=== PATIENT | female | born 1965 | race Caucasian/White ===

== ENCOUNTER 2016-12-23 14:18 | Emergency (ER) | payer OTHER ==
[~2016-12-23] VITALS: Ht 162.6 cm; Wt 90.5 kg
[~2016-12-23 14:18] MED LIST: ERGO500037 PO; GLC/500 PO; LEVO50TA6 PO; SULF800T23 PO
[2016-12-23 14:20] VITALS: TEMP 36.6; Ht 162.6 cm; Wt 90.5 kg
[2016-12-23] MEDS ORDERED: FURO-85 PO (15:02)
[2016-12-23 15:13] VITALS: BP 148/91; PULSE 84; O2SAT 96
[2016-12-23] MEDS ORDERED: OXYC1TAB3 PO (15:22)
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
--- NOTE | 2016-12-23 17:40 | Pharmacy Progress Note ---
ED Pharmacist Progress Note Date of Service: Dec 23, 2016. Pharmacist from [facility] called today stating she did not feel comfortable filling the Rx for oxy IR as she felt the patient exhibited drug-seeking behavior. I forwarded this phone call to Patty ARMANDO to discuss the appropriate course of action.
[2017-04-28] MEDS ORDERED: CEPH500C2 PO (13:45)
[2017-04-28] MEDS ORDERED: CHOL20007 PO (13:45)
[2017-04-28] MEDS ORDERED: NYST80OI TOP (13:45)
[2017-04-28] MEDS ORDERED: FRS/40 PO (13:45)
[2017-05-10] MEDS ORDERED: DIPH1TAB (08:22)
[2017-05-10] MEDS ORDERED: ACET-1256 PO (08:23)
[2017-08-05] MEDS ORDERED: ARIP1INJ IM (06:18)
[2017-08-05] MEDS ORDERED: CLON1TAB3 PO (10:47)
[2017-08-05] MEDS ORDERED: METF-382 PO (15:02)
== END 2016-12-23 15:44 | disposition home or self-care (01) ==
LOC: C.EDB 14:20 → C.EDD 15:44
DX: M79.672 Pain in left foot (principal); E11.9 Type 2 diabetes mellitus without complications; E03.9 Hypothyroidism, unspecified; F41.9 Anxiety disorder, unspecified; F31.9 Bipolar disorder, unspecified; K58.9 Irritable bowel syndrome, unspecified; Z90.49 Acquired absence of other specified parts of digestive tract; Z79.899 Other long term (current) drug therapy

== ENCOUNTER → 2016-12-30 | Outpatient (CLI) | payer OTHER ==
[~2016-12-30] MED LIST changes: +ACET-1256 PO; +ARIP1INJ IM; +CEPH500C PO; +CEPH500C2 PO; +CHOL20007 PO; +CHOLCAP5 PO; +CLON1TAB3 PO; +DIPH1TAB; +FRS/40 PO; +FURO-85 PO; -GLC/500 PO; +LEVO75TA5 PO; +METF-382 PO; +NYST80OI TOP; +OXYC1TAB3 PO; -SULF800T23 PO
[2016-12-30 14:09] LABS: ESTIMATED AVERAGE GLUCOSE 131 mg/dl; HA1C FLAG Normal (Normal)
[2016-12-30 14:14] LABS: BLOOD UREA NITROGEN 14 mg/dl (7-18); BUN/CREATININE RATIO 17.3 (10-20); CALCIUM 8.8 mg/dl (8.5-10.1); CARBON DIOXIDE 25 mmol/L (21-32); CHLORIDE 106 mmol/L (98-107); CREATININE 0.79 mg/dl (0.60-1.20); GLUCOSE 149 mg/dl (70-99); POTASSIUM 3.9 mmol/L (3.5-5.1); SODIUM 139 mmol/L (136-145)
== END | disposition home or self-care (01) ==
LOC: C.LAB1850 12:41
PROVIDERS: ATTEND Internal Medicine
DX: E11.9 Type 2 diabetes mellitus without complications (principal); E55.9 Vitamin D deficiency, unspecified

== ENCOUNTER → 2017-01-02 | Outpatient (CLI) | payer OTHER ==
--- NOTE | 2017-01-02 16:16 | DIAGNOSTIC IMAGING REPORT ---
LEFT FOOT MIN 3 VIEWS ROUTINE CLINICAL HISTORY: Metatarsal fracture COMPARISON: 11/07/2016 DISCUSSION: The bones are mildly osteopenic. There are osteoarthritic changes present the level the first metatarsal phalangeal joint. There are postsurgical changes within the distal tibia. No acute or healing fractures are visualized. IMPRESSION: No acute or healing fractures are visualized. Electronically signed by: Mynor Langford M.D. 01/02/2017 4:15 PM Dictated Date/Time: 01/02/2017 4:13 PM
== END | disposition home or self-care (01) ==
LOC: C.LAB 15:47
PROVIDERS: ATTEND Internal Medicine
DX: S92.302A Fracture of unspecified metatarsal bone(s), left foot, initial encounter for closed fracture (principal); X58.XXXA Exposure to other specified factors, initial encounter

== ENCOUNTER → 2017-02-14 | Outpatient (CLI) | payer OTHER ==
--- NOTE | 2017-02-14 11:14 | DIAGNOSTIC IMAGING REPORT ---
SINGLE VIEW PELVIS; 2 VIEWS RIGHT HIP; 2 VIEWS LEFT HIP CLINICAL HISTORY: Bilateral hip pain. FINDINGS: An AP view of the pelvis with AP and frog-leg views of the right hip as well as AP and frog-leg views of the left hip are compared to study dated 01/24/2016. The skeletal structures are osteopenic. No fracture is seen. There is unchanged appearance approximate 4 cm osteochondroma arising from the left ilium. There is only minimal degenerative change seen in the hip joints. Sclerotic change is noted in the sacroiliac joints and pubic symphysis. Enthesophytes arise from the anterior superior iliac spine bilaterally and the greater trochanters of the proximal femora. The overlying soft tissues are within normal limits. Surgical clips are noted in the pelvis. There is a nonobstructed abdominal bowel gas pattern. IMPRESSION: 1. No acute bony abnormality is seen in the hips or pelvis. 2. Minimal degenerative change as above. 3. Unchanged appearance of an osteochondroma arising from the left iliac bone as compared to previous. Electronically signed by: Joseph Thomas M.D. 02/14/2017 11:13 AM Dictated Date/Time: 02/14/2017 11:11 AM
== END | disposition home or self-care (01) ==
LOC: C.RDSM 11:01
PROVIDERS: ATTEND Family Medicine
DX: M25.551 Pain in right hip (principal); M25.552 Pain in left hip; D16.8 Benign neoplasm of pelvic bones, sacrum and coccyx

== ENCOUNTER → 2017-03-08 | Outpatient (CLI) | payer OTHER ==
[~2017-03-08] MED LIST changes: -DIPH1TAB; +DIPH1TAB87; +HALDOL PO
== END | disposition home or self-care (01) ==
LOC: C.LAB1850 14:52
PROVIDERS: ATTEND Internal Medicine
DX: Z11.59 Encounter for screening for other viral diseases (principal)

== ENCOUNTER → 2017-03-28 | Outpatient (CLI) | payer OTHER ==
--- NOTE | 2017-03-28 13:48 | DIAGNOSTIC IMAGING REPORT ---
LEFT ANKLE 3 VIEWS CLINICAL HISTORY: Left ankle pain. FINDINGS: 3 views of the left ankle are compared to study dated 11/10/2015. The skeletal structures are osteopenic. There is chronic posttraumatic deformity with partial bony fusion of the distal tibia and fibula. A buttress plate is present along the medial aspect of the distal tibia. Numerous cortical lag screws transfix the plate. The orthopedic hardware appears intact. Additional cortical screws are present within the distal tibia. Screw tracts are present more proximally within the mid tibial shaft. No acute fracture is seen. The ankle mortise appears intact. Mild soft tissue swelling is present around ankle. No joint effusion is seen. IMPRESSION: Osteopenia with chronic posttraumatic and postoperative findings as above. No acute bony abnormality is seen in the left ankle. Electronically signed by: Joseph Thomas M.D. 03/28/2017 1:46 PM Dictated Date/Time: 03/28/2017 1:44 PM
== END | disposition home or self-care (01) ==
LOC: C.RDSM 13:35
PROVIDERS: ATTEND Family Medicine
DX: M79.672 Pain in left foot (principal); M25.572 Pain in left ankle and joints of left foot; M85.872 Other specified disorders of bone density and structure, left ankle and foot

== ENCOUNTER → 2017-05-10 | Day surgery (SDC) | payer OTHER ==
[2017-04-28 13:46] VITALS: BMI 34.0
[~2017-05-10] VITALS: Ht 162.6 cm; Wt 90.9 kg
[~2017-05-10] MED LIST changes: -ERGO500037 PO; +HALO5TAB PO; +LIDOCAINE HCL 2% 2 ML VIAL (20MG/ML) ONE; -OXYC1TAB3 PO; +PROPOFOL IV EMULSION 10 MG/ML 20 ML VIAL IV ONE; +SODIUM CHLORIDE 0.9% 500ML 500 ML IV ONE
[2017-05-10 08:12] VITALS: Ht 162.6 cm; Wt 90.9 kg
--- NOTE | 2017-05-10 08:50 | Endo History and Physical ---
History & Physical Date of Service: May 10, 2017. Chief Complaint: SCREENING FAMILY HX COLON Referring Physician: DR. CARLTON History of Present Illness 52 yo CF who presents for colonoscopy secondary to family history of colon cancer. Past Medical History Diabetes, Arthritis, Fractures, Anxiety, Thyroid Disease Past Surgical History Hx Cardiac Surgery: No Hx Internal Defibrillator: No Hx Pacemaker: No Hx Abdominal Surgery: Yes (REYES, MINDY BSO, APPY) Hx of Implantable Prosthesis: No Hx Post-Op Nausea and Vomiting: No Hx Cancer Surgery: No Hx Thoracic Surgery: No Hx Orthopedic: Yes (LEFT ANKLE RECONSTRUCTION-LEFT HIP GRAFTING) Hx Urinary Tract Surgery: No Family History Colon CA Social History Smoking Status: Current Every Day Smoker Hx Substance Use: No Hx Alcohol Use: Yes (VERY RARELY) Allergies Coded Allergies: Acetaminophen (Unverified Allergy, Severe, nausea and hives, 05/10/17) NSAIDs (Unverified Allergy, Severe, vomiting, 05/10/17) Propoxyphene (Unverified Allergy, Severe, nausea and hives, 05/10/17) Amoxicillin (Verified Allergy, Unknown, vomiting, 05/10/17) Clavulanic Acid (Verified Allergy, Unknown, vomiting, 05/10/17) Erythromycin (Verified Allergy, Unknown, vomiting, 05/10/17) Ibuprofen (Verified Allergy, Unknown, tears my intestines up, 05/10/17) Nalbuphine (Verified Allergy, Unknown, violent vomiting, 05/10/17) Tramadol (Verified Allergy, Unknown, intestines turn inside out, 05/10/17) Corticosteroids (Verified Adverse Reaction, Mild, "INTESTINES TURN INSIDE OUT", 05/10/17) Codeine (Verified Adverse Reaction, Unknown, nausea, 05/10/17) Uncoded Allergies: LYSOL CLEANEER (Allergy, Intermediate, HIVES BREAKS OUT, 05/10/17) Current Medications Reported Home Medications Medications Dose Route/Sig Max Daily Dose Days Date Category Tylenol (Acetaminophen) 500 Mg Tab 2 Tab PO Q6 PRN 2 05/10/17 Reported Benadryl Allergy (Diphenhydramine Hcl) 25 Mg Tab PRN 05/10/17 Reported Vitamin D3 (Cholecalciferol) 2,000 Unit Tab 3 Tab PO QAM 90 04/28/17 Reported Nystatin (Nystatin (Topical)) 100,000 Unit/Gm Oin 1 Appln TOP TID 5 04/28/17 Reported Lasix (Furosemide) 40 Mg Tab 40 Mg PO DAILY PRN 04/28/17 Reported Keflex (Cephalexin Monohydrate) 500 Mg Cap 500 Mg PO QID 04/28/17 Reported Glucophage Ext Rel (Metformin HCl) 500 Mg Tab 500 Mg PO HS 12/23/16 Reported Klonopin (Clonazepam) 1 Mg Tab 1 Mg PO TID 03/14/16 Reported Abilify Maintena (Aripiprazole) 400 Mg Inj 1 Dose IM MONTHLY 01/29/16 Reported Levothyroxine Sodium 50 Mcg Tab 50 Mcg PO QAM 11/21/15 Reported Vital Signs Weight (Kilograms): 90.91 Height (Feet): 5 Height (Inches): 4 Date Time Temp Pulse Resp B/P (MAP) Pulse Ox O2 Delivery O2 Flow Rate FiO2 05/10/17 08:26 36.1 79 20 122/76 (91) 96 Room Air Physical Exam General Appearance: WD/WN, no apparent distress Respiratory/Chest: Auscultation: breath sounds normal Cardiovascular: Heart Auscultation: RRR Abdomen: Bowel Sounds: normal Inspection & Palpation: soft, non-distended, no tenderness, guarding & rebound Assessment and Plan Assessment: 52 yo CF who presents for colonoscopy secondary to family history of colon cancer. Plan: Proceed with colonoscopy.
--- NOTE | 2017-05-10 09:04 | Discharge Instructions ---
Endoscopy Patient Instructions Date / Procedure(s) Performed May 10, 2017. Colonoscopy Allergy Information Coded Allergies: Acetaminophen (Unverified Allergy, Severe, nausea and hives, 05/10/17) NSAIDs (Unverified Allergy, Severe, vomiting, 05/10/17) Propoxyphene (Unverified Allergy, Severe, nausea and hives, 05/10/17) Amoxicillin (Verified Allergy, Unknown, vomiting, 05/10/17) Clavulanic Acid (Verified Allergy, Unknown, vomiting, 05/10/17) Erythromycin (Verified Allergy, Unknown, vomiting, 05/10/17) Ibuprofen (Verified Allergy, Unknown, tears my intestines up, 05/10/17) Nalbuphine (Verified Allergy, Unknown, violent vomiting, 05/10/17) Tramadol (Verified Allergy, Unknown, intestines turn inside out, 05/10/17) Corticosteroids (Verified Adverse Reaction, Mild, "INTESTINES TURN INSIDE OUT", 05/10/17) Codeine (Verified Adverse Reaction, Unknown, nausea, 05/10/17) Uncoded Allergies: LYSOL CLEANEER (Allergy, Intermediate, HIVES BREAKS OUT, 05/10/17) Discharge Date / Findings May 10, 2017. Inadequate bowel prep Medication Instructions Stopped Medication(s): METFORMIN OK to resume all medications today as prescribed Medications Dose Route/Sig Max Daily Dose Days Date Category Tylenol (Acetaminophen) 500 Mg Tab 2 Tab PO Q6 PRN 2 05/10/17 Reported Benadryl Allergy (Diphenhydramine Hcl) 25 Mg Tab PRN 05/10/17 Reported Vitamin D3 (Cholecalciferol) 2,000 Unit Tab 3 Tab PO QAM 90 04/28/17 Reported Nystatin (Nystatin (Topical)) 100,000 Unit/Gm Oin 1 Appln TOP TID 5 04/28/17 Reported Lasix (Furosemide) 40 Mg Tab 40 Mg PO DAILY PRN 04/28/17 Reported Keflex (Cephalexin Monohydrate) 500 Mg Cap 500 Mg PO QID 04/28/17 Reported Glucophage Ext Rel (Metformin HCl) 500 Mg Tab 500 Mg PO HS 12/23/16 Reported Klonopin (Clonazepam) 1 Mg Tab 1 Mg PO TID 03/14/16 Reported Abilify Maintena (Aripiprazole) 400 Mg Inj 1 Dose IM MONTHLY 01/29/16 Reported Levothyroxine Sodium 50 Mcg Tab 50 Mcg PO QAM 11/21/15 Reported Provider Instructions Activity Restrictions - No exercising or heavy lifting for 24 hours. - Do not drink alcohol the day of the procedure. - Do not drive a car or operate machinery until the day after the procedure. - Do not make any important decisions or sign important papers in 24 hours after the procedure. Following Day: - Return to full activity which may include returning to work/school. Diet Start your diet with liquids and light foods (jello, soup, juice, toast). Then eat your usual diet if not nauseated. Treatment For Common After Affects For mild abdominal pain, bloating, or excessive gas: - Rest - Eat lightly - Lie on right side Follow-Up Information Follow-up with DR. CARLTON as scheduled Anesthesia Information What You Should Know You have had a procedure that required some medicine to reduce anxiety and discomfort. This treatment is called moderate sedation. After receiving the treatment, you may be sleepy, but you will be able to breathe on your own. The effects of the treatment may last for several hours. Follow these instructions along with Activity/Diet recommendations noted above: * Do NOT do anything where dizziness or clumsiness would be dangerous. * Rest quietly at home today, then you can be up and about tomorrow. * Have a responsible person stay with you the rest of today. * You may have had an I.V. today. If so, you may take the dressing off later today. Recommendations Call your doctor if: * Trouble breathing * Continuous vomiting for more than 24 hours * Temperature above 101 degrees * Severe abdominal pain or bloating * Pain not relieved by pain medicine ordered * There is increased drainage or redness from any incision * A large amount of rectal bleeding greater than 2-3 tablespoons. (If you had a polyp/s removed or have hemorrhoids, a small amount of blood - from the rectum is to be expected.) * You have any unanswered questions or concerns. IN THE EVENT OF A SERIOUS EMERGENCY, GO TO THE NEAREST EMERGENCY ROOM Your discharge instructions were prepared by provider Moshe Joseph. Patient Instructions Signature Page Ama Carlos Patient (or Guardian) Signature/Date: I have read and understand the instructions given to me by my caregivers. Caregiver/RN/Doctor Signature/Date: The above-named patient and/or guardian has received patient instructions on this date. + Original Patient Signature Page (only) stays with chart. Please make copy for patient.
--- NOTE | 2017-05-10 09:12 | GI REPORT ---
Procedure Date: 05/10/2017 8:20 AM Procedure: Colonoscopy Indications: Family history of colon cancer in a first-degree relative Medicines: Monitored Anesthesia Care Complications: No immediate complications. Estimated Blood Loss: Estimated blood loss: none. Procedure: Pre-Anesthesia Assessment: - Prior to the procedure, a History and Physical was performed, and patient medications and allergies were reviewed. The patient's tolerance of previous anesthesia was also reviewed. The risks and benefits of the procedure and the sedation options and risks were discussed with the patient. All questions were answered, and informed consent was obtained. Prior Anticoagulants: The patient has taken no previous anticoagulant or antiplatelet agents. ASA Grade Assessment: II - A patient with mild systemic disease. After reviewing the risks and benefits, the patient was deemed in satisfactory condition to undergo the procedure. After I obtained informed consent, the scope was passed under direct vision. Throughout the procedure, the patient's blood pressure, pulse, and oxygen saturations were monitored continuously. The scope was introduced through the anus with the intention of advancing to the ileum. The scope was advanced to the descending colon before the procedure was aborted. Medications were given. The colonoscopy was performed without difficulty. The patient tolerated the procedure well. Findings: A large amount of solid stool was found in the rectum, in the sigmoid colon and in the descending colon. Impression: - Stool in the rectum, in the sigmoid colon and in the descending colon. - No specimens collected. Recommendation: - Resume previous diet. - Continue present medications. - Repeat colonoscopy because the bowel preparation was poor. - Return to primary care physician as previously scheduled. Moshe Joseph DO 05/10/2017 9:12:11 AM This report has been signed electronically. Note Initiated On: 05/10/2017 8:20 AM I attest to the content of the Intraoperative Record and orders documented therein, exceptions below
[2017-05-10 09:26] VITALS: BP 98/64; PULSE 67; O2SAT 97
--- NOTE | 2017-05-10 09:33 | Anesthesiology Progress Note ---
Anesthesia Post Op Note Date & Time May 10, 2017 at 09:32 Vital Signs Pain Intensity: 0 Vital Signs Past 12 Hours Date Time Temp Pulse Resp B/P (MAP) Pulse Ox O2 Delivery O2 Flow Rate FiO2 05/10/17 09:26 67 20 98/64 (75) 97 Room Air 05/10/17 09:16 67 20 94/55 (68) 99 Room Air 05/10/17 09:06 66 20 101/57 (72) 95 Room Air 05/10/17 08:26 36.1 79 20 122/76 (91) 96 Room Air Notes Mental Status: alert / awake / arousable, participated in evaluation Pt Amnestic to Procedure: Yes Nausea / Vomiting: adequately controlled Pain: adequately controlled Airway Patency, RR, SpO2: stable & adequate BP & HR: stable & adequate Hydration State: stable & adequate Anesthetic Complications: no major complications apparent
== END | disposition home or self-care (01) ==
LOC: C.GI 07:59
PROVIDERS: ATTEND Internal Medicine
DX: Z12.11 Encounter for screening for malignant neoplasm of colon (principal); Z80.0 Family history of malignant neoplasm of digestive organs; E11.9 Type 2 diabetes mellitus without complications; Z88.5 Allergy status to narcotic agent; Z88.1 Allergy status to other antibiotic agents; Z90.49 Acquired absence of other specified parts of digestive tract; Z90.89 Acquired absence of other organs; Z98.890 Other specified postprocedural states; F17.200 Nicotine dependence, unspecified, uncomplicated; Z68.34 Body mass index [BMI] 34.0-34.9, adult

== ENCOUNTER → 2017-05-23 | Outpatient (CLI) | payer OTHER ==
[~2017-05-23] MED LIST changes: -LIDOCAINE HCL 2% 2 ML VIAL (20MG/ML) ONE; -PROPOFOL IV EMULSION 10 MG/ML 20 ML VIAL IV ONE; -SODIUM CHLORIDE 0.9% 500ML 500 ML IV ONE
== END | disposition home or self-care (01) ==
LOC: C.LAB1850 13:35
PROVIDERS: ATTEND Internal Medicine
DX: E03.9 Hypothyroidism, unspecified (principal)

== ENCOUNTER → 2017-07-18 | Outpatient (CLI) | payer OTHER ==
[~2017-07-18] MED LIST changes: +DIPH1TAB; -DIPH1TAB87; -HALDOL PO; -HALO5TAB PO
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
== END | disposition home or self-care (01) ==
LOC: C.RDSM 18:12
PROVIDERS: ATTEND Family Medicine
DX: M79.672 Pain in left foot (principal); M79.671 Pain in right foot

== ENCOUNTER → 2017-07-24 | Outpatient (CLI) | payer OTHER ==
[2017-07-24 17:08] LABS: ALT/SGPT 24 U/L (12-78); BLOOD UREA NITROGEN 19 mg/dl (7-18); BUN/CREATININE RATIO 26.7 (10-20); CALCIUM 8.9 mg/dl (8.5-10.1); CARBON DIOXIDE 30 mmol/L (21-32); CHLORIDE 104 mmol/L (98-107); CREATININE 0.72 mg/dl (0.60-1.20); GLUCOSE 122 mg/dl (70-99); POTASSIUM 3.5 mmol/L (3.5-5.1); SODIUM 141 mmol/L (136-145)
[2017-07-24 17:18] LABS: ALB/GLOB RATIO 1.4 (0.9-2); ALKALINE PHOSPHATASE 89 U/L (45-117); AST/SGOT 17 U/L (15-37)
[2017-07-25 06:16] LABS: ESTIMATED AVERAGE GLUCOSE 148 mg/dl; HA1C FLAG Normal (Normal)
== END | disposition home or self-care (01) ==
LOC: C.LAB1850 15:12
PROVIDERS: ATTEND Internal Medicine
DX: E11.9 Type 2 diabetes mellitus without complications (principal); E03.9 Hypothyroidism, unspecified; E55.9 Vitamin D deficiency, unspecified; E53.8 Deficiency of other specified B group vitamins

== ENCOUNTER 2017-08-05 16:43 | Emergency (ER) | payer OTHER ==
[~2017-08-05] VITALS: Ht 162.6 cm; Wt 89.3 kg
[~2017-08-05 16:43] MED LIST changes: -CEPH500C PO; -CHOLCAP5 PO; -FURO-85 PO; -LEVO75TA5 PO
[2017-08-05 16:47] VITALS: Ht 162.6 cm; Wt 89.3 kg
[2017-08-05] MEDS ORDERED: LEVO75TA5 PO (17:21)
[2017-08-05] MEDS ORDERED: CHOLCAP5 PO (17:21)
[2017-08-05] MEDS ORDERED: FURO-85 PO (17:21)
--- NOTE | 2017-08-05 17:48 | DIAGNOSTIC IMAGING REPORT ---
LEFT FOOT MIN 3 VIEWS ROUTINE CLINICAL HISTORY: L foot pain from fall trauma. Pain. COMPARISON: None. DISCUSSION: Generalized degenerative change. Cortical fracture distal phalanx great toe. No evidence of dislocation. Small heel spur. Postoperative changes to the distal tibia and fibula. There is no evidence for soft tissue swelling. IMPRESSION: Nondisplaced fracture base distal phalanx great toe. Considerable degenerative change. The above report was generated using voice recognition software. It may contain grammatical, syntax or spelling errors. Electronically signed by: Jose Guadalupe Nuñez M.D. 08/05/2017 5:46 PM Dictated Date/Time: 08/05/2017 5:45 PM
[2017-08-05] MEDS ORDERED: CEPH500C PO (18:09)
[2017-08-05] MEDS ORDERED: OXYCODONE IR HOME PACK PO ONE (18:15)
[2017-08-05 18:25] VITALS: BP 142/94; PULSE 84; TEMP 36.4; O2SAT 98
--- NOTE | 2017-08-05 20:43 | EMERGENCY ROOM VISIT NOTE ---
History First contact with patient: 16:52 Chief Complaint: FOOT PAIN Stated Complaint: BROKEN LEFT FOOT AND TOES History of Present Illness The patient is a 52 year old female who presents to the Emergency Room with complaints of left foot and great toe pain after her leg gave out and she twisted her foot 2 nights ago. The patient reports a history of left leg/ankle and foot surgeries. She reports that her leg is weak and she falls frequently. The patient reports being under the management of Dr. Arthur at [facility]. She was last seen 2 weeks ago. The patient reports that she has developed a blister on the great toe that popped today. She rates her discomfort an 8 out of 10 with weightbearing. Review of Systems 10 system review was performed and was negative except for pertinent positives and negatives as indicated in history of present illness Past Medical/Surgical History Medical Problems: (1) Abnormal LFTs (2) Abscess (3) Abscess (4) Abscess and cellulitis (5) Abscess and cellulitis (6) Acetaminophen overdose (7) Ankle sprain (8) Ankle sprain (9) Anxiety (10) Avulsion fracture of distal fibula (11) Back strain (12) Bilateral leg pain (13) Bipolar 1 disorder (14) Depression (15) Diabetes (16) Encounter for wound re-check (17) Fall (18) Fall (19) Hip pain, left (20) Homicidal ideation (21) IBS (irritable bowel syndrome) (22) Insect bites (23) Insomnia (24) Leg pain (25) Leg pain, left (26) Low back pain (27) Low back pain (28) Low back pain radiating to left leg (29) Lumbar strain (30) Mood disorder (31) Noncompliance with medications (32) Noncompliance with medications (33) Pain, dental (34) Pain, dental (35) Panic attack (36) Paranoia (37) Paranoid behavior (38) Rib fracture (39) Right otitis externa (40) Schizophrenia (41) Thought disorder (42) Tylenol overdose (43) Unintentional Tylenol overdose (44) Vomiting Surgical Problems: (1) History of cholecystectomy Family History Hypertension Social History Smoking Status: Current Every Day Smoker Alcohol Use: none Drug Use: none Marital Status: Housing Status: lives with roommate Occupation Status: disabled Current/Historical Medications Scheduled Aripiprazole (Abiliffernandez Maintena), 400 MG IM MONTHLY Cephalexin Monohydrate (Keflex), 500 MG PO TID Cholecalciferol (Vitamin D3), 5,000 INTER.UNIT PO DAILY Clonazepam (Klonopin), 1 MG PO TID Levothyroxine Sodium (Levothyroxine Sodium), 75 MCG PO DAILY Metformin Ext Rel (Glucophage Ext Rel), 500 MG PO BID Scheduled PRN Furosemide (Lasix), 20 MG PO DAILY PRN for Fluid Retention Physical Exam Vital Signs Date Time Temp Pulse Resp B/P (MAP) Pulse Ox O2 Delivery O2 Flow Rate FiO2 08/05/17 18:25 36.4 84 18 142/94 98 08/05/17 16:47 36.4 88 18 157/89 99 Room Air Physical Exam CONSTITUTIONAL: Healthy and well nourished. Alert and oriented X 3 with positive affect. She does not appear in any acute distress. HEENT: Normocephalic, atraumatic. Pupils equal, round and reactive. NECK: Full active range of motion without discomfort. MUSCULOSKELETAL: Examination of the left foot shows notable edema and neck are most this of the great toe. She has a small open blister to the dorsum of the toe. She has no other focal discomfort through the metatarsals or midfoot. Capillary refill of the great toe is less than 2 seconds. INTEGUMENTARY: No rash or other significant dermatologic conditions noted. NEUROLOGIC: No focal neurologic deficits noted. Medical Decision & Procedures ER Provider Diagnostic Interpretation: My interpretation of left foot x-ray shows a nondisplaced fracture at the base of the distal phalanx of the great toe. Radiologist report is as follows: LEFT FOOT MIN 3 VIEWS ROUTINE CLINICAL HISTORY: L foot pain from fall trauma. Pain. COMPARISON: None. DISCUSSION: Generalized degenerative change. Cortical fracture distal phalanx great toe. No evidence of dislocation. Small heel spur. Postoperative changes to the distal tibia and fibula. There is no evidence for soft tissue swelling. IMPRESSION: Nondisplaced fracture base distal phalanx great toe. Considerable degenerative change. Medications Administered Medications (Trade) Dose Ordered Sig/Sandhya Route Start Time Stop Time Status Last Admin Dose Admin Oxycodone HCl (Roxicodone Immediate Rel 5MG Home Pack) 1 homepack UD ONCE PO 08/05/17 18:15 08/05/17 18:16 DC 08/05/17 18:15 1 [facility] ED Course Patient history and physical exam were performed. Nurse's notes were reviewed. Vital signs were reviewed and were normal. Review of medical records shows that the patient was here in the emergency department in November 2016 with chronic left foot pain. Review of documentation from that visit indicates that she was evaluated at multiple places, including [facility] and a perioperative tech. Her ED provider also received a phone call from the patient's pharmacist with concern for narcotic seeking behavior. Review of the [place] Prescription Drug Monitoring Program, however, does not pull up any medical records in her name, date of or address. X-rays of the left foot confirms a fracture at the base of the distal phalanx of the great toe. Because the patient does have an open wound over the dorsum of the toe, I did suggest treating her with an antibiotic. When I was asking the patient where she wanted her prescription electronically sent, she reports that she does not want prescription sent to the [facility] pharmacy. She reports that she was here earlier in the year, and the pharmacist at [facility] called the emergency department "because they think I am a pill popper". The patient was advised that if she intermittently applies ice, elevate the foot and uses crutches to minimize weightbearing, she really should not need any significant use of analgesics for her pain. The patient reports that she has multiple allergies, including Tylenol and ibuprofen. The patient wanted a small prescription for something for pain. The patient was provided a home pack of OxyIR 5 mg, and advised to follow-up with Dr. Arthur for further reevaluation and to discuss pain management as needed. Crutches were provided. The patient was also provided a prescription for Keflex which she has taken in the past without adverse reaction. The patient voiced understanding of all discharge instructions, was happy with plan of care, and rated her discomfort a 5 out of 10 at the conclusion of my exam. Medical Decision Medication Reconcilliation Current Medication List: was personally reviewed by me Blood Pressure Screening Patient's blood pressure: Normal blood pressure Impression Primary Impression: Fracture of left great toe Additional Impression: Wound, open, toe Departure Information Prescriptions Cephalexin Monohydrate (Keflex) 500 Mg Cap 500 MG PO TID for 7 Days, #21 CAP Prov: Haresh Maciel PA 08/05/17 Referrals BalRV. Yoder MD (PCP) Patient Instructions My [facility] Problem Qualifiers Primary Impression: Fracture of left great toe Encounter type: initial encounter Fracture type: closed Phalanx: distal Fracture alignment: nondisplaced Qualified Codes: S92.425A - Nondisplaced fracture of distal phalanx of left great toe, initial encounter for closed fracture Additional Impression: Wound, open, toe Encounter type: initial encounter Qualified Codes: S91.109A - Unspecified open wound of unspecified toe(s) without damage to nail, initial encounter
== END 2017-08-05 18:26 | disposition home or self-care (01) ==
LOC: C.EDB 16:44 → C.EDD 18:26
DX: S92.425A Nondisplaced fracture of distal phalanx of left great toe, initial encounter for closed fracture (principal); S91.109A Unspecified open wound of unspecified toe(s) without damage to nail, initial encounter; R29.6 Repeated falls; E11.9 Type 2 diabetes mellitus without complications; F41.9 Anxiety disorder, unspecified; Z79.899 Other long term (current) drug therapy; Z86.59 Personal history of other mental and behavioral disorders; Z87.828 Personal history of other (healed) physical injury and trauma; Z82.49 Family history of ischemic heart disease and other diseases of the circulatory system; X50.1XXA Overexertion from prolonged static or awkward postures, initial encounter; F17.200 Nicotine dependence, unspecified, uncomplicated

== ENCOUNTER 2017-11-03 20:51 | Emergency (ER) | payer OTHER ==
[~2017-11-03] VITALS: Ht 162.6 cm; Wt 90.3 kg
[~2017-11-03 20:51] MED LIST changes: -ACET-1256 PO; -CEPH500C2 PO; -CHOL20007 PO; +CHOLCAP5 PO; -DIPH1TAB; -FRS/40 PO; +FURO-85 PO; +HALDOL PO; -LEVO50TA6 PO; +LEVO75TA5 PO; -NYST80OI TOP
[2017-11-03 20:54] VITALS: TEMP 36.7; Ht 162.6 cm; Wt 90.3 kg
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
[2017-11-03] MEDS ORDERED: HALO5TAB PO (21:40)
[2017-11-03 21:41] LABS: BASO % 0.3 %; BASO ABS # 0.03 K/uL (0-0.2); COMPLETE YES; EOS % 1.3 %; HEMATOCRIT 41.8 % (37-47); IG% 0.4 %; LYMPH % 31.9 %; LYMPH ABS # 3.46 K/uL (1.2-3.4); MEAN CELL VOLUME 93.3 fL (80-100); MEAN CORPUSCULAR HEMOGLOBIN 32.6 pg (25-34); MEAN CORPUSCULAR HGB CONC 34.9 g/dl (32-36); MEAN PLATELET VOLUME 10.3 fL (7.4-10.4); MONO % 4.4 %; NEUT % 61.7 %; PLATELET COUNT 291 K/uL (130-400); RED BLOOD COUNT 4.48 M/uL (4.2-5.4); WHITE BLOOD COUNT 10.84 K/uL (4.8-10.8)
[2017-11-03 22:03] LABS: BUN/CREATININE RATIO 16.4 (10-20); CALCIUM 8.9 mg/dl (8.5-10.1); CREATININE 0.79 mg/dl (0.60-1.20); POTASSIUM 3.3 mmol/L (3.5-5.1)
[2017-11-03 22:06] LABS: ACETAMINOPHEN < 2 ug/ml (10-30)
[2017-11-03 22:13] LABS: THYROID STIMULATING HORMONE 5.62 uIu/ml (0.300-4.500)
[2017-11-03 22:49] LABS: URINE APPEARANCE CLEAR (CLEAR); URINE BILIRUBIN NEG (NEG); URINE COLOR YELLOW; URINE EPITHELIAL CELL AUTO >30 /lpf (0-5); URINE NITRITE POS (NEG); URINE PH 5.5 (4.5-7.5); URINE SPECIFIC GRAVITY 1.022 (1.000-1.030); UROBILINOGEN NEG (NEG)
[2017-11-03 22:51] LABS: MANUAL MICROSCOPIC REQUIRED? NO; REVIEW REQ? NO
[2017-11-03 23:04] LABS: BENZODIAZEPINE, URINE POS (NEG); COCAINE,URINE NEG (NEG); PHENCYCLIDINE, URINE NEG (NEG)
[2017-11-04 00:20] VITALS: BP 148/70; PULSE 82; O2SAT 99
[2017-11-05 22:24] LABS: HYDROXYETHYLFLURAZEPAM CONF NEGATIVE NG/ML (CUTOFF=50); HYDROXYMIDAZOLAM NEGATIVE NG/ML (CUTOFF=50); HYDROXYTRIAZOLAM CONF NEGATIVE NG/ML (CUTOFF=50); TEMAZEPAM CONF NEGATIVE NG/ML (CUTOFF=50)
== END 2017-11-04 00:22 | disposition home or self-care (01) ==
LOC: C.EDB 20:53 → C.EDA 11-04 00:22
DX: F39 Unspecified mood [affective] disorder (principal); E87.6 Hypokalemia; E03.9 Hypothyroidism, unspecified; E11.9 Type 2 diabetes mellitus without complications; K58.9 Irritable bowel syndrome, unspecified; F32.9 Major depressive disorder, single episode, unspecified; F41.9 Anxiety disorder, unspecified; F31.9 Bipolar disorder, unspecified; G47.00 Insomnia, unspecified; F22 Delusional disorders; Z82.49 Family history of ischemic heart disease and other diseases of the circulatory system; F17.210 Nicotine dependence, cigarettes, uncomplicated; Z79.899 Other long term (current) drug therapy

== ENCOUNTER → 2017-12-11 | Outpatient (CLI) | payer OTHER ==
[~2017-12-11] MED LIST changes: -HALDOL PO; +HALO5TAB PO
[2017-12-11 15:46] LABS: HEMOGLOBIN A1C 6.9 % (4.5-5.6)
== END | disposition home or self-care (01) ==
LOC: C.LAB1850 13:12
PROVIDERS: ATTEND Physician Assistant
DX: E11.9 Type 2 diabetes mellitus without complications (principal)

== ENCOUNTER → 2017-12-13 | Outpatient (CLI) | payer OTHER | END | disposition home or self-care (01) | LOC: C.LABSPEC 17:24 | PROVIDERS: ATTEND Podiatrist Foot & Ankle Surgery | DX: L97.529 Non-pressure chronic ulcer of other part of left foot with unspecified severity (principal) ==

== ENCOUNTER → 2017-12-22 | Outpatient (CLI) | payer OTHER ==
--- NOTE | 2017-12-22 10:49 | DIAGNOSTIC IMAGING REPORT ---
MRI OF THE LEFT FOREFOOT WITHOUT IV CONTRAST CLINICAL HISTORY: Left foot cellulitis. COMPARISON STUDY: Radiographs of the left foot dated 08/05/2017. TECHNIQUE: MRI of the left forefoot is performed utilizing various T1 and T2-weighted sequences in the axial, sagittal, and coronal planes. IV contrast was not administered for this examination. The examination is modestly degraded by motion artifact. Note that interpretation is suboptimal without current plain film correlate. FINDINGS: There is significant marrow edema identified throughout the first distal phalanx. This likely corresponds to fracture. Additionally, there is significant marrow edema identified within the second middle phalanx. Fracture line is questioned on the T1-weighted images. No additional foci of marrow edema are identified throughout the forefoot. There is no evidence of Lisfranc injury. A small cutaneous defect is suggested at the tip of the second toe. This may represent a tiny ulcer/wound. Mild soft tissue edema is present within the tips of the first and second toes. A 5 mm fluid collection is questioned within the medial aspect of the second toe at the level of the distal interphalangeal joint. This is best seen on axial STIR image #13 and high-resolution sagittal T2 image #16. IMPRESSION: 1. There is significant marrow edema identified within the first distal phalanx. Fracture is seen at this site on 08/05/2017 by x-ray. This likely corresponds to fracture, and may represent acute versus acute on chronic. Clinical correlation will be essential. Current plain film correlate with be required. 2. There is significant marrow edema identified within the second middle phalanx. Fracture line is questioned, and this may be on a posttraumatic basis. Osteomyelitis would be impossible to exclude. Again, current plain film correlation will be required. 3. Only mild soft tissue edema is present within the first and second toes. 4. There is a 5 mm focus of fluid suggested along the medial aspect of the second toe at the level of the distal interphalangeal joint. This may correspond to a wound or simple fluid. A tiny abscess would be impossible to exclude. Dictated: 12/22/2017 10:36 AM Transcribed: 12/22/2017 10:48 AM [facility] Electronically signed by: Joseph Thomas M.D. 12/22/2017 10:55 AM Dictated Date/Time: 12/22/2017 10:36 AM
== END | disposition home or self-care (01) ==
LOC: C.MRI 08:48
PROVIDERS: ATTEND Podiatrist Foot & Ankle Surgery
DX: L97.526 Non-pressure chronic ulcer of other part of left foot with bone involvement without evidence of necrosis (principal)

== ENCOUNTER 2018-06-29 16:15 | Emergency (ER) | payer OTHER ==
[~2018-06-29] VITALS: Ht 162.6 cm; Wt 85.0 kg
[~2018-06-29 16:15] MED LIST changes: -CLON1TAB3 PO; +CLON1TAB5 PO
[2018-06-29 16:18] VITALS: TEMP 36.7; Ht 162.6 cm; Wt 85.0 kg
[2018-06-29] MEDS ORDERED: SODIUM CHLORIDE 0.9% 1000ML 1,000 ML IV ONE (16:43)
[2018-06-29] MEDS ORDERED: PROMETHAZINE HCL INJ 12.5 MG in SODIUM CHLORIDE 0.9% 50ML 50 ML IV STA (16:43)
[2018-06-29] MEDS ORDERED: SODIUM CHLORIDE 0.9% 1000ML 1,000 ML IV STA (16:43)
[2018-06-29] MEDS ORDERED: OXYCODONE HCL IR 5 MG TAB (IMMEDIATE RELEASE) PO STA (16:43)
[2018-06-29 17:14] LABS: BASO % 0.3 %; BASO ABS # 0.02 K/uL (0-0.2); EOS % 1.1 %; EOS ABS # 0.09 K/uL (0-0.5); HEMATOCRIT 40.6 % (37-47); HEMOGLOBIN 14.2 g/dL (12.0-16.0); IG# 0.03 K/uL (0.00-0.02); LYMPH ABS # 1.89 K/uL (1.2-3.4); MEAN CELL VOLUME 86.8 fL (80-100); MEAN CORPUSCULAR HEMOGLOBIN 30.3 pg (25-34); MEAN PLATELET VOLUME 10.5 fL (7.4-10.4); MONO % 5.8 %; MONO ABS # 0.46 K/uL (0.11-0.59); NEUT % 68.4 %; PLATELET COUNT 237 K/uL (130-400); RED CELL DISTRIBUTION WIDTH CV 13.2 % (11.5-14.5); RED CELL DISTRIBUTION WIDTH SD 41.8 fL (36.4-46.3); WHITE BLOOD COUNT 7.89 K/uL (4.8-10.8)
[2018-06-29 17:34] LABS: ALBUMIN 3.9 gm/dl (3.4-5.0); CALCIUM 8.9 mg/dl (8.5-10.1); CREATININE 0.64 mg/dl (0.60-1.20); POTASSIUM 3.5 mmol/L (3.5-5.1); TOTAL PROTEIN 7.3 gm/dl (6.4-8.2)
--- NOTE | 2018-06-29 17:41 | EMERGENCY ROOM VISIT NOTE ---
History First contact with patient: 16:32 Chief Complaint: GI ASSESSMENT Stated Complaint: HEAD HURTS, DEHYDRATED, SICK Nursing Triage Summary: Patient reports HX of IBS, reports flare yesterday. Pt reports Abd pain and swelling, reports feeling generally ill History of Present Illness The patient is a 53 year old female who presents to the Emergency Room with complaints of a flareup of her IBS. She has had IBS chronically. She ate Spanish food 2 days ago and if she is not careful what she eats she gets a flareup. She has had frequent loose stools that have been without blood or melena. she has had nausea. she feels dehydrated and has pain all over including her head and joints. No dysuria or hematuria. No chest pain or shortness of breath. No fall or trauma. No abdominal pain. No focal numbness or weakness. Source of History: patient Review of Systems As above. All other systems reviewed were negative unless otherwise stated in history. At least 10 were reviewed Past Medical/Surgical History Medical Problems: (1) Abnormal LFTs (2) Abscess (3) Abscess (4) Abscess and cellulitis (5) Abscess and cellulitis (6) Acetaminophen overdose (7) Ankle sprain (8) Ankle sprain (9) Anxiety (10) Avulsion fracture of distal fibula (11) Back strain (12) Bilateral leg pain (13) Bipolar 1 disorder (14) Depression (15) Diabetes (16) Encounter for wound re-check (17) Fall (18) Fall (19) Hip pain, left (20) Homicidal ideation (21) IBS (irritable bowel syndrome) (22) Insect bites (23) Insomnia (24) Leg pain (25) Leg pain, left (26) Low back pain (27) Low back pain (28) Low back pain radiating to left leg (29) Lumbar strain (30) Mood disorder (31) Noncompliance with medications (32) Noncompliance with medications (33) Pain, dental (34) Pain, dental (35) Panic attack (36) Paranoia (37) Paranoid behavior (38) Rib fracture (39) Right otitis externa (40) Schizophrenia (41) Thought disorder (42) Tylenol overdose (43) Unintentional Tylenol overdose (44) Vomiting Surgical Problems: (1) History of cholecystectomy Old medical records were reviewed. Nurse's notes were reviewed and I agree with. Family History Hypertension Social History Smoking Status: Current Every Day Smoker Alcohol Use: none Drug Use: none Marital Status: Housing Status: lives with roommate Occupation Status: disabled Current/Historical Medications Scheduled Aripiprazole (Abilify Maintena), 400 MG IM MONTHLY Cholecalciferol (Vitamin D3), 5,000 INTER.UNIT PO DAILY Clonazepam (Klonopin), 1 MG PO TID Haloperidol (Haldol), Unknown Dose PO BID Levothyroxine Sodium (Levothyroxine Sodium), 75 MCG PO DAILY Metformin Ext Rel (Glucophage Ext Rel), 500 MG PO BID Scheduled PRN Furosemide (Lasix), 20 MG PO DAILY PRN for Fluid Retention Physical Exam Vital Signs Date Time Temp Pulse Resp B/P (MAP) Pulse Ox O2 Delivery O2 Flow Rate FiO2 06/29/18 19:00 82 20 146/78 98 06/29/18 17:53 98 20 134/76 96 Room Air 06/29/18 16:18 36.7 104 20 133/86 96 Room Air Physical Exam General: Well developed well nourished nontoxic, [id number] middle-aged female who appears in no acute distress, breathing comfortably on room air. Normal speech HEENT: Normal cephalic atraumatic. Pupils are equal round and reactive to light. Sclerae anicteric. Extraocular movements are intact. Oropharynx is pink with moist mucous membranes. No swelling of the mouth lips or tongue. Neck: Supple with a midline trachea. No meningeal signs or stiffness, no JVD or bruits. No Stridor. Chest: Clear to auscultation bilaterally. No wheezes or rhonchi. No increased work of breathing. Heart: Regular rate and rhythm without murmurs or gallops. Abdomen: Soft nontender, nondistended without rebound guarding or rigidity. Extremities: No cyanosis clubbing or edema. No calf tenderness or assymetry Spine/Back. Non tender to palpation. No CVA tenderness Skin: Good turgor without rashes. Neurologic exam: Cranial nerves two through 12 are intact. Motor and sensation are intact and symmetrical throughout. Medical Decision & Procedures Laboratory Results 06/29/18 17:00 Red Blood Count 4.68, Mean Corpuscular Volume 86.8, Mean Corpuscular Hemoglobin 30.3, Mean Corpuscular Hemoglobin Concent 35.0, Mean Platelet Volume 10.5, Neutrophils (%) (Auto) 68.4, Lymphocytes (%) (Auto) 24.0, Monocytes (%) (Auto) 5.8, Eosinophils (%) (Auto) 1.1, Basophils (%) (Auto) 0.3, Neutrophils # (Auto) 5.40, Lymphocytes # (Auto) 1.89, Monocytes # (Auto) 0.46, Eosinophils # (Auto) 0.09, Basophils # (Auto) 0.02 06/29/18 17:00 Test 06/29/18 17:00 06/29/18 17:09 White Blood Count 7.89 K/uL (4.8-10.8) Red Blood Count 4.68 M/uL (4.2-5.4) Hemoglobin 14.2 g/dL (12.0-16.0) Hematocrit 40.6 % (37-47) Mean Corpuscular Volume 86.8 fL (80-100) Mean Corpuscular Hemoglobin 30.3 pg (25-34) Mean Corpuscular Hemoglobin Concent 35.0 g/dl (32-36) Platelet Count 237 K/uL (130-400) Mean Platelet Volume 10.5 fL (7.4-10.4) Neutrophils (%) (Auto) 68.4 % Lymphocytes (%) (Auto) 24.0 % Monocytes (%) (Auto) 5.8 % Eosinophils (%) (Auto) 1.1 % Basophils (%) (Auto) 0.3 % Neutrophils # (Auto) 5.40 K/uL (1.4-6.5) Lymphocytes # (Auto) 1.89 K/uL (1.2-3.4) Monocytes # (Auto) 0.46 K/uL (0.11-0.59) Eosinophils # (Auto) 0.09 K/uL (0-0.5) Basophils # (Auto) 0.02 K/uL (0-0.2) RDW Standard Deviation 41.8 fL (36.4-46.3) RDW Coefficient of Variation 13.2 % (11.5-14.5) Immature Granulocyte % (Auto) 0.4 % Immature Granulocyte # (Auto) 0.03 K/uL (0.00-0.02) Anion Gap 7.0 mmol/L (3-11) Est Creatinine Clear Calc Drug Dose 106.0 ml/min Estimated GFR () 117.3 Estimated GFR (Non- 101.2 BUN/Creatinine Ratio 10.1 (10-20) Calcium Level 8.9 mg/dl (8.5-10.1) Total Bilirubin 0.3 mg/dl (0.2-1) Direct Bilirubin 0.1 mg/dl (0-0.2) Aspartate Amino Transf (AST/SGOT) 25 U/L (15-37) Alanine Aminotransferase (ALT/SGPT) 39 U/L (12-78) Alkaline Phosphatase 151 U/L (45-117) Total Protein 7.3 gm/dl (6.4-8.2) Albumin 3.9 gm/dl (3.4-5.0) Lipase 208 U/L (73-393) Bedside Troponin I < 0.030 ng/ml (0-0.045) Medications Administered Medications (Trade) Dose Ordered Sig/Sandhya Route Start Time Stop Time Status Last Admin Dose Admin Sodium Chloride 1,000 ml @ 999 mls/hr Q1H1M STAT IV 06/29/18 16:43 06/29/18 17:43 DC 06/29/18 16:43 999 MLS/HR Sodium Chloride 1,000 ml @ 200 mls/hr Q5H ONCE IV 06/29/18 16:43 06/29/18 21:06 DC 06/29/18 16:43 200 MLS/HR Promethazine HCl 12.5 mg/Sodium Chloride 50.5 ml @ 204 mls/hr NOW STAT IV 06/29/18 16:43 06/29/18 16:57 DC 06/29/18 17:49 204 MLS/HR Oxycodone HCl (Roxicodone Immediate Rel Tab) 5 mg NOW STAT PO 06/29/18 16:43 06/29/18 16:45 DC 06/29/18 16:43 5 MG Medical Decision Differential diagnosis includes dehydration, IBS flareup, electrolyte or metabolic abnormality, infection, UTI This patient comes in as described above, she was placed in room C2. she has had a flareup of her IBS. She has had diarrhea and body aches. She looks well on exam her abdomen is benign she is stable vital signs. IV access established hydrated IV normal saline she was given Zofran. Multiple blood testing was obtained and she was reassessed frequently. She was also given p.o. oxygen IR which she has had before. Blood work was obtained. She has nothing to suggest infection. She is not anemic. She has no significant active or metabolic abnormalities. She has nothing to suggest liver, gallbladder, or pancreas disease. She is feeling significantly better would like to go home. I think is reasonable to discharge her home. She will rest and drink plenty of fluids. She will return if: worsening of symptoms, fever or chills, any new problems or concerns. She was happy the plan and discharged to home. Medication Reconcilliation Current Medication List: was personally reviewed by me Blood Pressure Screening Patient's blood pressure: Normal blood pressure Impression Primary Impression: Diarrhea Additional Impressions: IBS (irritable bowel syndrome) Dehydration Departure Information Referrals RV. Brown MD (PCP) Patient Instructions My [facility] Problem Qualifiers
[2018-06-29 19:00] VITALS: BP 146/78; PULSE 82; O2SAT 98
== END 2018-06-29 19:02 | disposition home or self-care (01) ==
LOC: C.EDB 16:17 → C.EDC 19:02
DX: K58.0 Irritable bowel syndrome with diarrhea (principal); E86.0 Dehydration; E11.9 Type 2 diabetes mellitus without complications; F20.9 Schizophrenia, unspecified; F31.9 Bipolar disorder, unspecified; F41.9 Anxiety disorder, unspecified; F17.200 Nicotine dependence, unspecified, uncomplicated; Z79.84 Long term (current) use of oral hypoglycemic drugs; Z79.899 Other long term (current) drug therapy

== ENCOUNTER 2018-06-30 11:17 | Emergency (ER) | payer OTHER ==
[~2018-06-30 11:17] MED LIST changes: +CLON1TAB10 PO; -CLON1TAB5 PO
[2018-06-30 11:27] VITALS: TEMP 37.1
[2018-06-30] MEDS ORDERED: OXYCODONE HCL IR 5 MG TAB (IMMEDIATE RELEASE) PO STA (12:34)
[2018-06-30 12:40] LABS: BASO % 0.4 %; BASO ABS # 0.03 K/uL (0-0.2); EOS % 1.4 %; HEMATOCRIT 42.9 % (37-47); HEMOGLOBIN 14.9 g/dL (12.0-16.0); IG# 0.03 K/uL (0.00-0.02); LYMPH % 22.3 %; LYMPH ABS # 1.61 K/uL (1.2-3.4); MEAN CELL VOLUME 87.6 fL (80-100); MEAN CORPUSCULAR HEMOGLOBIN 30.4 pg (25-34); MEAN CORPUSCULAR HGB CONC 34.7 g/dl (32-36); MEAN PLATELET VOLUME 10.7 fL (7.4-10.4); MONO ABS # 0.43 K/uL (0.11-0.59); NEUT % 69.5 %; NEUT ABS # 5.02 K/uL (1.4-6.5); PLATELET COUNT 256 K/uL (130-400); RED CELL DISTRIBUTION WIDTH CV 13.3 % (11.5-14.5); RED CELL DISTRIBUTION WIDTH SD 42.4 fL (36.4-46.3); WHITE BLOOD COUNT 7.22 K/uL (4.8-10.8)
[2018-06-30 12:47] LABS: PTT PATIENT 21.8 SECONDS (21.0-31.0)
[2018-06-30 13:03] LABS: ALBUMIN 4.3 gm/dl (3.4-5.0); ALKALINE PHOSPHATASE 164 U/L (45-117); ALT/SGPT 43 U/L (12-78); AST/SGOT 27 U/L (15-37); BLOOD UREA NITROGEN 7 mg/dl (7-18); CALCIUM 9.1 mg/dl (8.5-10.1); CARBON DIOXIDE 28 mmol/L (21-32); CREATININE 0.75 mg/dl (0.60-1.20); GLUCOSE 195 mg/dl (70-99); LIPASE 217 U/L (73-393); POTASSIUM 3.7 mmol/L (3.5-5.1); SODIUM 142 mmol/L (136-145); TOTAL PROTEIN 8.2 gm/dl (6.4-8.2)
--- NOTE | 2018-06-30 13:42 | DIAGNOSTIC IMAGING REPORT ---
CT SCAN OF THE PARANASAL SINUSES CLINICAL HISTORY: Frontal headache. COMPARISON STUDY: CT of the brain dated 01/21/2016. TECHNIQUE: High-resolution CT scan of the paranasal sinuses is performed. Images are reviewed in the axial, sagittal, and coronal planes. IV contrast was not administered for this examination. A dose lowering technique was utilized adhering to the principles of ALARA. CT DOSE: 516.88 mGy.cm FINDINGS: Maxillary antra: Clear bilaterally. Anterior ethmoid sinuses: Clear. Posterior ethmoid sinuses: Clear. Sphenoid sinuses: Clear. Frontal sinuses: Clear. Ostiomeatal complexes: Patent bilaterally. Frontoethmoidal and sphenoethmoidal recesses: Patent bilaterally. Carotid arteries: The carotid arteries are covered. There are bilateral septal attachments. Ethmoid roofs: There is slightly asymmetric elevation of the right ethmoid roof as compared to the left. Nasal turbinates: Normal in appearance. Nasal septum: There is minimal rightward deviation of the bony nasal septum. Optic nerves: Covered. Orbits: The bony orbits are intact. Orbital contents are normal in appearance. Calvarium: The imaged calvarium is normal in appearance Mastoid air cells: Well pneumatized. Brain parenchyma: Partially visualized brain parenchyma is within normal limits. IMPRESSION: No paranasal sinus disease is identified. Electronically signed by: Joseph Thomas M.D. 06/30/2018 1:41 PM Dictated Date/Time: 06/30/2018 1:39 PM
[2018-06-30] MEDS ORDERED: ACETAMINOPHEN 500 MG TAB PO STA (14:18)
[2018-06-30] MEDS ORDERED: ONDANSETRON 4MG OD TAB PO ONE (14:45)
--- NOTE | 2018-06-30 15:15 | EMERGENCY ROOM VISIT NOTE ---
ED Visit Note First contact with patient: 11:26 Patient seen and evaluated in the emergency room after discussion with physician hotel assistant general manager. Patient here with odd affect and initially improved with treatment by the PA. Upon my additional evaluation patient with no description of symptoms and physical exam findings suggestive of meningitis, subarachnoid hemorrhage, CVA, central venous sinus thrombus, or dissection. Patient with a history of headaches although denies they are "migraines". Patient feels there is possibly a component of dehydration as she has had recent diarrhea due to her IBS. Patient was encouraged to continue drinking fluids. Patient improved here following additional medication. I do not suspect sinusitis or other infectious etiology of her headache. Patient ambulatory here with a steady gait , and a nonfocal neuro exam. Vital signs stable. I do not suspect hypertensive urgency or emergency.
--- NOTE | 2018-06-30 15:18 | EMERGENCY ROOM VISIT NOTE ---
History First contact with patient: 11:26 Chief Complaint: HEADACHE Stated Complaint: HEADACHE History of Present Illness The patient is a 53 year old female who presents to the Emergency Room via EMS with complaints of frontal headache and feeling achy all over. The patient was just seen in the emergency room last evening. She states that was for her irritable bowel but today she is here for headache. She continues to feel achy all over. The patient denies any fever, cough, dizziness or visual changes. Patient denies any change in medications. The patient lives at a [facility]. By the EMS note it is of concern of the caretakers at the ch[facility] that she is not taking her medications as prescribed. They think that she might of taken more of her Haldol and Klonopin as prescribed . The patient describes her headache as a throbbing sensation and rates it at a 10 out of 10. The patient denies any chest pain or shortness of breath. Review of Systems 10 system review was performed and was negative unless stated otherwise history of present illness. Past Medical/Surgical History Medical Problems: (1) Abnormal LFTs (2) Abscess (3) Abscess (4) Abscess and cellulitis (5) Abscess and cellulitis (6) Acetaminophen overdose (7) Ankle sprain (8) Ankle sprain (9) Anxiety (10) Avulsion fracture of distal fibula (11) Back strain (12) Bilateral leg pain (13) Bipolar 1 disorder (14) Depression (15) Diabetes (16) Encounter for wound re-check (17) Fall (18) Fall (19) Hip pain, left (20) Homicidal ideation (21) IBS (irritable bowel syndrome) (22) Insect bites (23) Insomnia (24) Leg pain (25) Leg pain, left (26) Low back pain (27) Low back pain (28) Low back pain radiating to left leg (29) Lumbar strain (30) Mood disorder (31) Noncompliance with medications (32) Noncompliance with medications (33) Pain, dental (34) Pain, dental (35) Panic attack (36) Paranoia (37) Paranoid behavior (38) Rib fracture (39) Right otitis externa (40) Schizophrenia (41) Thought disorder (42) Tylenol overdose (43) Unintentional Tylenol overdose (44) Vomiting Surgical Problems: (1) History of cholecystectomy Bipolar disorder, diabetes, depression, IBS, cholecystectomy Social History Smoking Status: Never Smoker Housing Status: other (Lives in a chcf) Current/Historical Medications Scheduled Aripiprazole (Abilify Maintena), 400 MG IM MONTHLY Cholecalciferol (Vitamin D3), 5,000 INTER.UNIT PO DAILY Clonazepam (Klonopin), 1 MG PO TID Haloperidol (Haldol), Unknown Dose PO BID Levothyroxine Sodium (Levothyroxine Sodium), 75 MCG PO DAILY Metformin Ext Rel (Glucophage Ext Rel), 500 MG PO BID Scheduled PRN Furosemide (Lasix), 20 MG PO DAILY PRN for Fluid Retention Physical Exam Vital Signs Date Time Temp Pulse Resp B/P (MAP) Pulse Ox O2 Delivery O2 Flow Rate FiO2 06/30/18 14:37 93 18 156/96 97 Room Air 06/30/18 12:47 88 18 145/90 98 Room Air 06/30/18 11:27 37.1 101 22 130/118 93 Room Air 06/30/18 11:25 96 Physical Exam GENERAL: 53-year-old female appears in no acute distress. Patient appears very tired. MENTAL Status: Alert and oriented 3. HEAD: Atraumatic, nontender to palpation. EYES: PERRLA. EOMs intact. EARS: Canals clear. TMs without fluid level noted. NOSE: Nasal mucosa with erythema and engorgement. PHARYNX: No erythema or edema noted. Airway is adequate. SINUSES: Patient has diffuse tenderness to percussion over the frontal sinuses, maxillary are nontender. NECK: Supple, no lymphadenopathy noted. No carotid bruits noted. LUNGS: Clear auscultation without wheezes rales or rhonchi. CARDIAC: Regular rate and rhythm without murmur. Pulses is full and equal throughout. ABDOMEN: Positive bowel sounds all 4 quadrants. Soft, and relies mild tenderness palpation without organomegaly or masses. NEURO:Cranial nerves two through 12 intact. Cerebellar function intact with [id number]. Fine motor intact with alternating finger motions. Medical Decision & Procedures ER Provider Diagnostic Interpretation: CT SCAN OF THE PARANASAL SINUSES CLINICAL HISTORY: Frontal headache. COMPARISON STUDY: CT of the brain dated 01/21/2016. TECHNIQUE: High-resolution CT scan of the paranasal sinuses is performed. Images are reviewed in the axial, sagittal, and coronal planes. IV contrast was not administered for this examination. A dose lowering technique was utilized adhering to the principles of ALARA. CT DOSE: 516.88 mGy.cm FINDINGS: Maxillary antra: Clear bilaterally. Anterior ethmoid sinuses: Clear. Posterior ethmoid sinuses: Clear. Sphenoid sinuses: Clear. Frontal sinuses: Clear. Ostiomeatal complexes: Patent bilaterally. Frontoethmoidal and sphenoethmoidal recesses: Patent bilaterally. Carotid arteries: The carotid arteries are covered. There are bilateral septal attachments. Ethmoid roofs: There is slightly asymmetric elevation of the right ethmoid roof as compared to the left. Nasal turbinates: Normal in appearance. Nasal septum: There is minimal rightward deviation of the bony nasal septum. Optic nerves: Covered. Orbits: The bony orbits are intact. Orbital contents are normal in appearance. Calvarium: The imaged calvarium is normal in appearance Mastoid air cells: Well pneumatized. Brain parenchyma: Partially visualized brain parenchyma is within normal limits. IMPRESSION: No paranasal sinus disease is identified. Electronically signed by: Joseph Thomas M.D. 06/30/2018 1:41 PM Laboratory Results 06/30/18 12:25 Red Blood Count 4.90, Mean Corpuscular Volume 87.6, Mean Corpuscular Hemoglobin 30.4, Mean Corpuscular Hemoglobin Concent 34.7, Mean Platelet Volume 10.7, Neutrophils (%) (Auto) 69.5, Lymphocytes (%) (Auto) 22.3, Monocytes (%) (Auto) 6.0, Eosinophils (%) (Auto) 1.4, Basophils (%) (Auto) 0.4, Neutrophils # (Auto) 5.02, Lymphocytes # (Auto) 1.61, Monocytes # (Auto) 0.43, Eosinophils # (Auto) 0.10, Basophils # (Auto) 0.03 06/30/18 12:25 Test 06/30/18 12:25 White Blood Count 7.22 K/uL (4.8-10.8) Red Blood Count 4.90 M/uL (4.2-5.4) Hemoglobin 14.9 g/dL (12.0-16.0) Hematocrit 42.9 % (37-47) Mean Corpuscular Volume 87.6 fL (80-100) Mean Corpuscular Hemoglobin 30.4 pg (25-34) Mean Corpuscular Hemoglobin Concent 34.7 g/dl (32-36) Platelet Count 256 K/uL (130-400) Mean Platelet Volume 10.7 fL (7.4-10.4) Neutrophils (%) (Auto) 69.5 % Lymphocytes (%) (Auto) 22.3 % Monocytes (%) (Auto) 6.0 % Eosinophils (%) (Auto) 1.4 % Basophils (%) (Auto) 0.4 % Neutrophils # (Auto) 5.02 K/uL (1.4-6.5) Lymphocytes # (Auto) 1.61 K/uL (1.2-3.4) Monocytes # (Auto) 0.43 K/uL (0.11-0.59) Eosinophils # (Auto) 0.10 K/uL (0-0.5) Basophils # (Auto) 0.03 K/uL (0-0.2) RDW Standard Deviation 42.4 fL (36.4-46.3) RDW Coefficient of Variation 13.3 % (11.5-14.5) Immature Granulocyte % (Auto) 0.4 % Immature Granulocyte # (Auto) 0.03 K/uL (0.00-0.02) Prothrombin Time 10.0 SECONDS (9.0-12.0) Prothromb Time International Ratio 1.0 (0.9-1.1) Activated Partial Thromboplast Time 21.8 SECONDS (21.0-31.0) Partial Thromboplastin Ratio 0.8 Anion Gap 7.0 mmol/L (3-11) Estimated GFR () 104.7 Estimated GFR (Non- 90.4 BUN/Creatinine Ratio 9.0 (10-20) Calcium Level 9.1 mg/dl (8.5-10.1) Total Bilirubin 0.4 mg/dl (0.2-1) Direct Bilirubin 0.2 mg/dl (0-0.2) Aspartate Amino Transf (AST/SGOT) 27 U/L (15-37) Alanine Aminotransferase (ALT/SGPT) 43 U/L (12-78) Alkaline Phosphatase 164 U/L (45-117) Total Protein 8.2 gm/dl (6.4-8.2) Albumin 4.3 gm/dl (3.4-5.0) Lipase 217 U/L (73-393) Medications Administered Medications (Trade) Dose Ordered Sig/Sandhya Route Start Time Stop Time Status Last Admin Dose Admin Oxycodone HCl (Roxicodone Immediate Rel Tab) 5 mg NOW STAT PO 06/30/18 12:34 06/30/18 12:35 DC 06/30/18 12:47 5 MG Acetaminophen (Tylenol Tab) 1,000 mg NOW STAT PO 06/30/18 14:18 06/30/18 14:20 DC 06/30/18 14:39 1,000 MG Ondansetron HCl (Zofran Odt) 4 mg ONE ONCE PO 06/30/18 14:45 06/30/18 14:46 DC 06/30/18 15:04 4 MG ED Course The patient was evaluated. Patient's EMR medication list were reviewed. The patient was seen here last evening under a different last name. Last name was Kamilla Carlos. I reviewed the patient's ER note from last evening. She did not have a CAT scan performed at that time. She did have labs which were unremarkable. She was hydrated and return to the [facility]. IV access was obtained. CBC and differential and renal profile was ordered. CT of the sinuses was ordered and interpreted by the radiologist as above. The patient was given OxyIR 5 mg. 1 tablet p.o. for pain. She had received one of these last evening and tolerated well. The patient was reevaluated was feeling much better. She was sleeping when I arrived in the exam room. CT of the sinuses revealed no acute abnormality. I discussed the case with Dr. Chen who independently evaluated the patient. At this time the patient was stating that her headache was coming back therefore she was given 1 g of Tylenol p.o. the patient was once again reevaluated. She was again sleeping when I entered the exam room. I woke her up and she stated that her headache was better. The patient was discharged home in stable condition. Medical Decision Differential diagnosis include side effect of medication, acute sinusitis, headache of unknown origin, viral illness PA Drug Monitoring Program Search Results: patient reviewed within database Medication Reconcilliation Current Medication List: was personally reviewed by me Blood Pressure Screening Patient's blood pressure: Elevated blood pressure Blood pressure disposition: Elevated BP felt to be situational Impression Primary Impression: Headache Additional Impression: Generalized body aches Departure Information Dispostion Home / Self-Care Condition GOOD Referrals RV. Brown MD (PCP) Forms HOME CARE DOCUMENTATION FORM, IMPORTANT VISIT INFORMATION Patient Instructions My [facility] real trends Additional Instructions Tylenol as needed for your headache. Make sure you are taking all your prescription medications as prescribed. Push fluids. Rest. Follow-up with your family doctor in 2-3 days for recheck. If symptoms worsen in the interim, return to ER. Problem Qualifiers Primary Impression: Headache Headache type: unspecified Headache chronicity pattern: acute headache Intractability: not intractable Qualified Codes: R51 - Headache
[2018-06-30 15:25] VITALS: BP 146/89; PULSE 93; O2SAT 97
== END 2018-06-30 15:29 | disposition home or self-care (01) ==
LOC: MERGE 11:20 → C.EDC 11:20
DX: R51 Headache (principal); R52 Pain, unspecified; F20.9 Schizophrenia, unspecified; F41.9 Anxiety disorder, unspecified; E11.9 Type 2 diabetes mellitus without complications; Z79.84 Long term (current) use of oral hypoglycemic drugs

== ENCOUNTER 2018-07-01 11:27 | Emergency (ER) | payer OTHER ==
[~2018-07-01] VITALS: Ht 162.6 cm; Wt 88.8 kg
[~2018-07-01 11:27] MED LIST changes: -CLON1TAB10 PO; +CLON1TAB5 PO
[2018-07-01 11:29] VITALS: Ht 162.6 cm; Wt 88.8 kg
[2018-07-01] MEDS ORDERED: SUMATRIPTAN SUCCINATE 6 MG/0.5 ML VIAL SQ STA (11:41)
[2018-07-01] MEDS ORDERED: ONDANSETRON 4MG OD TAB PO ONE (11:45)
--- NOTE | 2018-07-01 11:59 | DIAGNOSTIC IMAGING REPORT ---
HEAD WITHOUT CONTRAST (CT) CT DOSE: 537.48 mGy.cm HISTORY: Headache persistent YO TECHNIQUE: Multiaxial CT images of the head were performed without the use of intravenous contrast. A dose lowering technique was utilized adhering to the principles of ALARA. Comparison: 01/21/2016 Findings: The paranasal sinuses and mastoid air cells are clear. The calvarium and skull base are intact. The ventricles and sulci are within normal limits. There is no mass, hematoma, midline shift, or acute infarct. Impression: No acute intracranial abnormality. The above report was generated using voice recognition software. It may contain grammatical, syntax or spelling errors. Electronically signed by: Jose Guadalupe Nuñez M.D. 07/01/2018 11:58 AM Dictated Date/Time: 07/01/2018 11:57 AM
[2018-07-01] MEDS ORDERED: SODIUM CHLORIDE 0.9% 1000ML 1,000 ML IV STA (12:49)
[2018-07-01] MEDS ORDERED: DiphenhydrAMINE HCL 50 MG/ML VIAL IV STA (12:49)
[2018-07-01] MEDS ORDERED: METOCLOPRAMIDE HCL INJ 5 MG/ML 2 ML VIAL IV STA (12:49)
--- NOTE | 2018-07-01 12:52 | EMERGENCY ROOM VISIT NOTE ---
ED Visit Note First contact with patient: 11:34 Pt seen and examined after discussion with the PA. Patient seen her yesterday. Patient well-appearing here despite complaints. Head CT here reassuring. Patient with normal nonfocal neuro exam, I do not suspect intracranial hemorrhage, CVA, cerebellar infarct or bleed. I do not suspect acute vascular etiology including dissection or dural sinus thrombus. I do not suspect acute intracranial infection. Patient hemodynamically stable throughout. For more likely related to dehydration, stress, possible migraine component. Patient improved filling medication here and rechecked multiple times by the PA. Please see her note for additional details.
--- NOTE | 2018-07-01 13:52 | EMERGENCY ROOM VISIT NOTE ---
History First contact with patient: 11:34 Chief Complaint: HEADACHE Stated Complaint: HEADACHE History of Present Illness The patient is a 53 year old female who presents to the Emergency Room with complaints of recurrent frontal headache. The patient was seen here in the past 2 days for headache as well as other complaints. Today she arrives by ambulance stating she thinks she has a migraine. It is unclear if she took anything at home for her headaches. She lives at a correction and her medications are not monitored well. She did not bring her medications with her today. The patient denies any visual changes or dizziness. She describes the pain as a sharp pain and throbbing pain which she rates at a 10 out of 10. Review of Systems 10 system review was performed and was negative unless stated otherwise history of present illness. Past Medical/Surgical History Medical Problems: (1) Abnormal LFTs (2) Abscess (3) Abscess (4) Abscess and cellulitis (5) Abscess and cellulitis (6) Acetaminophen overdose (7) Ankle sprain (8) Ankle sprain (9) Anxiety (10) Avulsion fracture of distal fibula (11) Back strain (12) Bilateral leg pain (13) Bipolar 1 disorder (14) Depression (15) Diabetes (16) Encounter for wound re-check (17) Fall (18) Fall (19) Hip pain, left (20) Homicidal ideation (21) IBS (irritable bowel syndrome) (22) Insect bites (23) Insomnia (24) Leg pain (25) Leg pain, left (26) Low back pain (27) Low back pain (28) Low back pain radiating to left leg (29) Lumbar strain (30) Mood disorder (31) Noncompliance with medications (32) Noncompliance with medications (33) Pain, dental (34) Pain, dental (35) Panic attack (36) Paranoia (37) Paranoid behavior (38) Rib fracture (39) Right otitis externa (40) Schizophrenia (41) Thought disorder (42) Tylenol overdose (43) Unintentional Tylenol overdose (44) Vomiting Surgical Problems: (1) History of cholecystectomy Family History Hypertension Social History Smoking Status: Current Every Day Smoker Alcohol Use: none Drug Use: none Marital Status: Housing Status: other Occupation Status: disabled Current/Historical Medications Scheduled Aripiprazole (Abiliffernandez Maintena), 400 MG IM MONTHLY Cholecalciferol (Vitamin D3), 5,000 INTER.UNIT PO DAILY Clonazepam (Klonopin), 1 MG PO TID Haloperidol (Haldol), Unknown Dose PO BID Levothyroxine Sodium (Levothyroxine Sodium), 75 MCG PO DAILY Metformin Ext Rel (Glucophage Ext Rel), 500 MG PO BID Scheduled PRN Furosemide (Lasix), 20 MG PO DAILY PRN for Fluid Retention Physical Exam Vital Signs Date Time Temp Pulse Resp B/P (MAP) Pulse Ox O2 Delivery O2 Flow Rate FiO2 07/01/18 13:37 82 18 126/51 100 Room Air 07/01/18 11:29 37.0 87 18 150/117 95 Room Air Physical Exam GENERAL: 53-year-old white female appears groggy in no acute distress. MENTAL Status: Alert and oriented 3. HEAD: Atraumatic, nontender to palpation. EYES: PERRLA. EOMs intact. EARS: Canals clear. TMs without fluid level noted. SINUSES: Frontal sinuses tender to percussion otherwise nontender. NECK: Supple, no lymphadenopathy noted. No carotid bruits noted. LUNGS: Clear auscultation without wheezes rales or rhonchi. CARDIAC: Regular rate and rhythm with out murmur. Pulses is full and equal throughout. NEURO: Grossly intact. Medical Decision & Procedures ER Provider Diagnostic Interpretation: HEAD WITHOUT CONTRAST (CT) CT DOSE: 537.48 mGy.cm HISTORY: Headache persistent YO TECHNIQUE: Multiaxial CT images of the head were performed without the use of intravenous contrast. A dose lowering technique was utilized adhering to the principles of ALARA. Comparison: 01/21/2016 Findings: The paranasal sinuses and mastoid air cells are clear. The calvarium and skull base are intact. The ventricles and sulci are within normal limits. There is no mass, hematoma, midline shift, or acute infarct. Impression: No acute intracranial abnormality. The above report was generated using voice recognition software. It may contain grammatical, syntax or spelling errors. Electronically signed by: Jose Guadalupe Nuñez M.D. 07/01/2018 11:58 AM Medications Administered Medications (Trade) Dose Ordered Sig/Sandhya Route Start Time Stop Time Status Last Admin Dose Admin Ondansetron HCl (Zofran Odt) 4 mg ONE ONCE PO 07/01/18 11:45 07/01/18 11:46 DC 07/01/18 12:00 4 MG Sumatriptan Succinate (Imitrex Sq Inj) 6 mg NOW STAT SQ 07/01/18 11:41 07/01/18 11:43 DC 07/01/18 12:00 6 MG Sodium Chloride 1,000 ml @ 999 mls/hr Q1H1M STAT IV 07/01/18 12:49 07/01/18 13:49 DC 07/01/18 12:49 999 MLS/HR Metoclopramide HCl (Reglan Inj) 10 mg NOW STAT IV 07/01/18 12:49 07/01/18 12:51 DC 07/01/18 13:22 10 MG Diphenhydramine HCl (Benadryl Inj) 25 mg NOW STAT IV 07/01/18 12:49 07/01/18 12:51 DC 07/01/18 13:22 25 MG ED Course The patient was evaluated. Patient's EMR medication list were reviewed. I had seen the patient yesterday and had performed a CT of the sinuses which was completely negative. I will do a CT of the head today we reviewed by the radiologist which revealed no acute abnormality.. The patient was given Zofran 4 mg ODT and Imitrex 0.6 milligrams subcu. the patient was reevaluated and stated she was feeling. Dr. stevens independently evaluated the patient and when she went to talk with the patient she stated that her headache was back. IV access was obtained. She was given Reglan and Benadryl IV for her headache. She is also given a liter of saline. The patient was reevaluated once again and stated she was feeling better. The patient was discharged home in stable condition. Medical Decision The patient has presented on multiple occasions for the same complaint of headache. She had a CT of the sinuses done yesterday so CT of the head was done today to make sure that there was no bleed. This was again again negative. I discussed with the patient that she needs to bring her medicines with her the next time she comes to the emergency room to make sure that she is taking them appropriately. I cannot exclude that she is not getting a headache from incorrect dosings of her medications. [place] Drug Monitoring Program Search Results: patient reviewed within database Medication Reconcilliation Current Medication List: was personally reviewed by me Blood Pressure Screening Patient's blood pressure: Elevated blood pressure Impression Primary Impression: Headache Departure Information Dispostion Home / Self-Care Condition GOOD Referrals RV. Brown MD (PCP) Forms HOME CARE DOCUMENTATION FORM, IMPORTANT VISIT INFORMATION Patient Instructions [facility] Additional Instructions Continue all medications as prescribed. Tylenol as needed for headache. Keep well-hydrated. Call your family doctor tomorrow morning for a follow-up appointment in 2 days. At any point if he return to the ER recommend that you bring all medications with you. Problem Qualifiers Primary Impression: Headache Headache type: unspecified Headache chronicity pattern: acute headache Intractability: not intractable Qualified Codes: R51 - Headache
[2018-07-01 14:05] VITALS: BP 126/51; PULSE 82; TEMP 37; O2SAT 100
== END 2018-07-01 14:10 | disposition home or self-care (01) ==
LOC: EDBD 11:27 → C.EDC 11:30
DX: R51 Headache (principal); F31.9 Bipolar disorder, unspecified; E11.9 Type 2 diabetes mellitus without complications; K58.9 Irritable bowel syndrome, unspecified; Z91.14 Patient's other noncompliance with medication regimen; Z90.49 Acquired absence of other specified parts of digestive tract; Z82.49 Family history of ischemic heart disease and other diseases of the circulatory system; Z79.84 Long term (current) use of oral hypoglycemic drugs; Z79.899 Other long term (current) drug therapy

== ENCOUNTER 2019-01-23 12:47 | Inpatient (IN) ==
[2019-01-23] MEDS ORDERED: PROCHLORPERAZINE 2 ML IV ONE (13:50)
[2019-01-23] MEDS ORDERED: SODIUM CHLORIDE 0.9% 1000ML 1,000 ML IV ONE (13:50)
[2019-01-23] MEDS ORDERED: DiphenhydrAMINE HCL 50 MG/ML VIAL IV STA (13:50)
[2019-01-23 14:43] LABS: Basophils # (auto) 0.02 K/uL (0-0.2); Basophils % (auto) 0.2 %; Eosinophils # (auto) 0.03 K/uL (0-0.5); Eosinophils % (auto) 0.3 %; Hematocrit (blood only) 45.7 % (37-47); Hemoglobin 16.2 g/dL (12.0-16.0); Immature Granulocytes # (auto) 0.04 K/uL (0.00-0.02); Immature Granulocytes % (auto) 0.4 %; Lymphocytes # (auto) 1.24 K/uL (1.2-3.4); Lymphocytes % (auto) 13.3 %; Mean Corpuscular Hgb Conc 35.4 g/dL (32-36); Mean Corpuscular Volume 88.4 fL (80-100); Mean Platelet Volume 10.7 fL (7.4-10.4); Monocytes # (auto) 0.35 K/uL (0.11-0.59); Monocytes % (auto) 3.7 %; Neutrophils # (auto) 7.66 K/uL (1.4-6.5); Neutrophils % (auto) 82.1 %; Platelet Count 268 K/uL (130-400); RDW Coefficient of Variation 12.3 % (11.5-14.5); RDW Standard Deviation 39.7 fL (36.4-46.3); Red Blood Count 5.17 M/uL (4.2-5.4); White Blood Count 9.34 K/uL (4.8-10.8)
[2019-01-23 14:57] LABS: Albumin Level 4.6 gm/dl (3.4-5.0); BUN Creatinine Ratio 10.2 (10-20); Calcium 9.2 mg/dl (8.5-10.1); Creatinine Clr Calc Pharmacy 103.2 ml/min; Est GFR (African American) 116.7; Est GFR (Non-African American) 100.7; Potassium 3.3 mmol/L (3.5-5.1)
[2019-01-23 15:00] LABS: Albumin Globulin Ratio 1.1 (0.9-2); Bilirubin,Total 0.6 mg/dl (0.2-1); Globulin 4.1 gm/dl (2.5-4.0); Total Protein 8.7 gm/dl (6.4-8.2)
[2019-01-23] MEDS ORDERED: IOVERSOL 100ml IV PRN (15:29)
--- NOTE | 2019-01-23 15:36 | CT Scan Report ---
CT abd pelvis IV con only CLINICAL HISTORY: Central abdominal pain COMPARISON STUDY: December 25, 2018 TECHNIQUE: The patient was scanned in a dynamic helical fashion during intravenous administration of 93 cc of Optiray 320. A dose lowering technique was utilized adhering to the principles of ALARA. CT DOSE: 636.23 mGy.cm FINDINGS: Lower chest: The heart is normal in size and configuration, without pericardial effusion. The lung ba ses and pleural spaces are clear. Liver: The contrast-enhanced liver is normal in size, contour, and attenuation. There is no intrahepa tic biliary ductal dilatation. The hepatic veins and portal veins are patent. Gallbladder: Surgically absent Spleen: Normal in size and attenuation. Pancreas: Unremarkable. Adrenal glands: Unremarkable. Kidneys: There is symmetric renal cortical enhancement. The kidneys are normal in size without hydron ephrosis. Bowel: There are no transition zones indicate bowel obstruction. There is no evidence of acute divert iculitis. By history the appendix is surgically absent. Peritoneum: There is no intraperitoneal free air or abdominal ascites. Vasculature: The abdominal aorta is normal in course and caliber. Adenopathy: None. Pelvic viscera: The uterus is surgically absent. Skeletal structures: No destructive osseous lesions are seen. IMPRESSION: 1. No acute intra-abdominal or pelvic findings 2. No evidence of bowel obstruction. No evidence of free air 3. No evidence of acute diverticulitis 4. No acute inflammatory changes 5. Surgically absent gallbladder appendix and uterus Electronically signed by: Mynor Langford M.D. 01/23/2019 3:34 PM
[2019-01-23] MEDS ORDERED: ONDANSETRON INJ 2 MG/ML 2 ML VIAL IV STA (17:26)
[2019-01-23] MEDS ORDERED: SODIUM CHLORIDE 0.9% 1000ML 1,000 ML IV SCH (17:30)
[2019-01-23 17:44] LABS: Appearance Urine Clear (Clear); Bacteria Urine Automated Negative (Negative); Bilirubin Urine Negative (Negative); Blood Urine 2+ (Negative); Cast Urine Automated 0 /lpf (0-5); Color Urine Yellow; Epithelial Cell Urine Auto 20-30 /lpf (0-5); Glucose Urine UA Negative (Negative); Ketones Urine Negative (Negative); Leukocyte Esterase Urine Negative (Negative); Nitrite Urine Negative (Negative); Protein Urine Negative (Negative); RBC Urine Automated 0-4 /hpf (0-4); Specific Gravity Urine > 1.045 (1.000-1.030); Urobilinogen Urine Negative (Negative); pH Urine 6.5 (4.5-7.5)
[2019-01-23 17:51] LABS: Hepatitis B Surface Antigen Neg (Neg)
--- NOTE | 2019-01-23 18:17 | Ultrasound Report ---
US gallbladder CLINICAL HISTORY: 53 years-old Female presenting with ruq tenderness, abnormal LFTs, history of monserrat cystectomy. TECHNIQUE: Real-time grayscale and limited color Doppler ultrasound imaging of the abdomen limited to the right upper quadrant was performed. COMPARISON: CT from earlier today. FINDINGS: Pancreas: Largely obscured due to overlying bowel gas. Liver: Hyperechogenic parenchyma with heterogeneous echotexture, likely indicating fibrosis or steato sis. The liver measures 15.4 cm in maximal sagittal dimension. No sonographic evidence of hepatic mas s. Main portal vein patent with normal directional flow. Biliary: No intrahepatic biliary ductal dilatation. Common bile duct measures up to 7 mm in diameter. Gallbladder: Surgically absent. Right kidney: Normal in appearance without evidence of hydronephrosis. Ascites: None. Other: None. IMPRESSION: 1. Heterogeneous and hyperechoic parenchyma could suggest underlying steatosis or fibrosis. 2. Status post cholecystectomy. Prominence of extrahepatic biliary duct likely a reservoir effect in the post cholecystectomy state. Electronically signed by: Abran Corral M.D. 01/23/2019 6:15 PM
[2019-01-23 18:19] LABS: Hepatitis C IgG 13Yrs+Old_Rflx Neg (Neg)
--- NOTE | 2019-01-23 19:34 | Emergency Department Note ---
Entered by Antonio Gerber acting as a scribe for History of Present Illness General Chief complaint: Headache Stated complaint: migraine Source: patient Limitations: no limitations History of Present Illness Provider complaint: Migraine Onset (ago): hour(s) (8) Location: head Pain Consistency: + constant Maximum Pain Intensity: 10 Quality: + other ("throbbing" ) Associated symptoms: + other (No neck pain); no fever/chills Treatments prior to arrival: other (Percocet) The patient is a 53 year old female who presents to the Emergency Room with complaints of a constant headache that returned at 0600 this morning, about 8 hours ago. The patient states that she has been having headaches "every other day" for the past 6 months. 6 months ago she received her first diagnosis of migraine headaches. She notes that she has tried migraine medications at home, but they "do not work for me." The patient also notes that she cannot take Ibuprofen, Tylenol, Toradol, or Steroids as they "bother my stomach." The patient was here in the ED for a headache yesterday. She was discharged home with a Percocet homepack, which she states she took last night and this morning. The patient notes that she went to bed at 1930 last night, and that her headache resolved at 0000 this morning and then returned at 0600. She has taken all of the Percocet hompack, but her headache has persisted. She describes her current pain as a "throbbing" sensation behind her right eye. This headache is exactly like her headache yesterday and is not any different than the headaches that she has been having over the past 6 months. Her headaches normally present behing her eyes and feel like a throbbing pain. The patient adds that she is currently nauseous and vomiting and has some abdominal pain. This is not commonly present with her headache episodes. Home Medications Home Medications Medication Instructions Recorded Confirmed Type aripiprazole [Abililidia Maintena] 400 mg IM MONTHLY 08/04/18 01/23/19 History clonazepam 1 mg PO TID 08/04/18 01/23/19 History furosemide 20 mg PO DAILY PRN 08/04/18 01/23/19 History haloperidol 5 mg PO TID 08/04/18 01/23/19 History levothyroxine 75 mcg PO QAM 08/04/18 01/23/19 History metformin 500 mg PO BID 08/04/18 01/23/19 History oxycodone 5 mg PO UD 01/23/19 01/23/19 History Allergies Allergy/AdvReac Type Severity Reaction Status Date / Time NSAIDS (Non-Steroidal Allergy Severe vomiting Verified 01/23/19 14:54 Anti-Inflamma propoxyphene Allergy Severe nausea and Verified 01/23/19 14:54 hives amoxicillin Allergy Unknown vomiting Verified 01/23/19 14:54 clavulanic acid Allergy Unknown vomiting Verified 01/23/19 14:54 erythromycin base Allergy Unknown vomiting Verified 01/23/19 14:54 ibuprofen Allergy Unknown tears my Verified 01/23/19 14:54 intestines up nalbuphine Allergy Unknown violent Verified 01/23/19 14:54 vomiting tramadol Allergy Unknown intestines Verified 01/23/19 14:54 turn inside out ketorolac [From Toradol] AdvReac Severe Nausea Unverified 01/23/19 14:54 Corticosteroids AdvReac Mild "INTESTINES Verified 01/23/19 14:54 (Glucocorticoids) TURN INSIDE OUT" codeine AdvReac Unknown nausea Verified 01/23/19 14:54 LYSOL CLEANEER Allergy Intermediate HIVES Uncoded 01/23/19 14:54 BREAKS OUT Past Med/Surg History Medical History Schizophrenia Paranoia Paranoid behavior Panic attack Mood disorder IBS (irritable bowel syndrome) Homicidal ideation Bipolar 1 disorder Anxiety Depression Diabetes Surgical History History of cholecystectomy Social History Preferred Language: Tajik Beliefs That Will Affect Care: None Current Living Situation: Alone Feels Safe at Home: Yes Smoking Status: Current every day smoker Hx Alcohol Use: No Hx Substance Use: No Review of Systems See HPI for pertinent positives & negatives. and A total of 10 systems reviewed and were otherwise negative Physical Exam Vital Signs Vital Signs - 24 hr 01/23/19 12:51 01/23/19 13:50 01/23/19 17:23 Temperature 37 C Temperature Source Oral Sepsis Recent Fever Within 48 Hours No Sepsis New/Unexplained Change in Mental Status No Sepsis Action Taken by Nursing No Action Required Pulse Rate 89 Pulse Rate [Finger] 90 Pulse Rhythm Regular Pulse Strength Normal Respiratory Rate 22 20 Respiratory Effort / Characteristics Non-Labored Spontaneous Respiratory Depth Normal Respiratory Pattern Regular Blood Pressure 157/100 H Blood Pressure [Right Arm] 163/88 H Blood Pressure Mean 119 Blood Pressure Mean [Right Arm] 113 Blood Pressure Position Lying Pulse Oximetry 98 97 98 Oxygen Delivery Method Room Air Room Air Room Air GENERAL: Laying in bed, alert, disheveled, NAD, non-toxic. EYE EXAM: normal conjunctiva. PERRL and EOM's intact. HEAD: Reproducible frontal tenderness over the right eyebrow, midline to 1-inch laterally tracking to the top of the head. OROPHARYNX: no exudate, no erythema, lips, buccal mucosa, and tongue normal and mucous membranes are moist NECK: supple, no nuchal rigidity, no adenopathy, non-tender LUNGS: Clear to auscultation. Normal chest wall mechanics HEART: no murmurs, S1 normal and S2 normal ABDOMEN: abdomen soft, non-tender, normo-active bowel, sounds, no masses, no rebound or guarding. BACK: Back is symmetrical on inspection and there is no deformity, no midline tenderness, no CVA tenderness. SKIN: no rashes and no bruising UPPER EXTREMITIES: upper extremities are grossly normal. LOWER EXTREMITIES: No pitting edema. NEURO EXAM: Normal sensorium, cranial nerves II-XII intact, normal speech, no weakness of arms, no weakness of legs. No drift. Finger to noseintact. Gross sensation intact. Ambulate without difficulty Course ED COURSE: Vital signs were reviewed and showed hypertension. The patients medical record was reviewed The above diagnostic studies were performed and reviewed. ED treatments and interventions as stated above. 1341: The patient was evaluated in room B2. A complete history and physical examination was performed. 1550: I updated the patient. 1709: I discussed the case with Dr. Joseph - Gastroenterology. 1839: I reviewed the patient's case with Dr. Garzon - [facility]. She will evaluate the patient for further management. Upon reevaluation, the patient is resting in bed. I discussed my findings with the patient and she understands and agrees with the treatment plan. Based on the patients age, coexisting illnesses, exam and lab findings the decision to treat as an inpatient was made. The patient remained stable while under my care. The patient will be evaluated for further management. Administered Medications Ioversol (Optiray 320 100ml) 93 ml IV ONCE PRN PRN Reason: Interaction Checking Stop: 01/27/19 15:28 Last Admin: 01/23/19 15:29 Dose: 93 ml Documented by: [id number] Discontinued Medications Diphenhydramine HCl (Benadryl) 50 mg IV NOW STA Stop: 01/23/19 13:51 Last Admin: 01/23/19 14:45 Dose: 50 mg Documented by: [id number] Sodium Chloride (Nss 1000ml) 1,000 mls @ 999 mls/hr IV .Q1H1M ONE Stop: 01/23/19 14:50 Last Infusion: 01/23/19 15:33 Dose: 0 mls/hr Documented by: [id number] Admin: 01/23/19 14:30 Dose: 999 mls/hr Documented by: [id number] Prochlorperazine (Compazine) 2 mls @ 1 mls/min IV ONE ONE Stop: 01/23/19 13:51 Last Admin: 01/23/19 14:45 Dose: 1 mls/min Documented by: [id number] Sodium Chloride (Nss 1000ml) 1,000 mls @ 999 mls/hr IV .Q1H1M [place] Stop: 01/23/19 18:30 Last Admin: 01/23/19 18:28 Dose: 999 mls/hr Documented by: [id number] Ondansetron HCl (Zofran) 4 mg IV NOW STA Stop: 01/23/19 17:27 Last Admin: 01/23/19 17:46 Dose: 4 mg Documented by: [id number] Medical Decision Making Differential Diagnosis Differential diagnosis: Etiologies such as tension headache, cluster headache, migraine headache, meningitis/encephalitis, sinusitis, dental infection, temporal arteritis, glaucoma, carbon monoxide exposure, ICH, SAH, infection, intracranial mass, sinus thrombosis, arterial dissection, as well as others were entertained Medical Records Attestation: I reviewed the patient's medical records. Home Medications Current Medication List: was personally reviewed by me Laboratory Data Attestation: I reviewed the patient's lab results. Result diagrams: 01/23/19 14:20 01/23/19 14:20 Lab Results 01/23/19 01/23/19 01/23/19 Range/Units 14:20 14:20 14:20 WBC 9.34 (4.8-10.8) K/uL RBC 5.17 (4.2-5.4) M/uL Hgb 16.2 H (12.0-16.0) g/dL Hct 45.7 (37-47) % MCV 88.4 (80-100) fL MCH 31.3 (25-34) pg MCHC 35.4 (32-36) g/dL RDW Std Deviation 39.7 (36.4-46.3) fL RDW Coeff of Jim 12.3 (11.5-14.5) % Plt Count 268 (130-400) K/uL MPV 10.7 H (7.4-10.4) fL Immature Gran % (Auto) 0.4 % Neut % (Auto) 82.1 % Lymph % (Auto) 13.3 % [place] % (Auto) 3.7 % Eos % (Auto) 0.3 % Baso % (Auto) 0.2 % Immature Gran # (Auto) 0.04 H (0.00-0.02) K/uL Neut # (Auto) 7.66 H (1.4-6.5) K/uL Lymph # (Auto) 1.24 (1.2-3.4) K/uL [place] # (Auto) 0.35 (0.11-0.59) K/uL Eos # (Auto) 0.03 (0-0.5) K/uL Baso # (Auto) 0.02 (0-0.2) K/uL Sodium 136 (136-145) mmol/L Potassium 3.3 L (3.5-5.1) mmol/L Chloride 102 (98-107) mmol/L Carbon Dioxide 27 (21-32) mmol/L Anion Gap 7.0 (3-11) BUN 7 (7-18) mg/dl Creatinine 0.65 (0.6-1.2) mg/dl Est Cr Clr Drug Dosing 103.2 ml/min Est GFR ( Amer) 116.7 Est GFR (Non-Af Amer) 100.7 BUN/Creatinine Ratio 10.2 (10-20) Glucose 183 H (70-99) mg/dl Calcium 9.2 (8.5-10.1) mg/dl Total Bilirubin 0.6 (0.2-1) mg/dl AST 168 H (15-37) U/L ALT 254 H (12-78) U/L Alkaline Phosphatase 240 H (45-117) U/L Total Protein 8.7 H (6.4-8.2) gm/dl Albumin 4.6 (3.4-5.0) gm/dl Globulin 4.1 H (2.5-4.0) gm/dl Albumin/Globulin Ratio 1.1 (0.9-2) Lipase 398 H (73-393) U/L Urine Color Urine Appearance (Clear) Urine pH (4.5-7.5) Ur Specific [place] (1.000-1.030) Urine Protein (Negative) Urine Glucose (UA) (Negative) Urine Ketones (Negative) Urine Blood (Negative) Urine Nitrite (Negative) Urine Bilirubin (Negative) Urine Urobilinogen (Negative) Ur Leukocyte Esterase (Negative) Urine WBC (Auto) (0-5) /hpf Urine RBC (Auto) (0-4) /hpf U Hyaline Cast (Auto) (0-5) /lpf U Epithel Cells (Auto) (0-5) /lpf Urine Bacteria (Auto) (Negative) Hep Bs Antigen Neg (Neg) Hepatitis C Antibody Neg (Neg) 01/23/19 Range/Units 16:45 WBC (4.8-10.8) K/uL RBC (4.2-5.4) M/uL Hgb (12.0-16.0) g/dL Hct (37-47) % MCV (80-100) fL MCH (25-34) pg MCHC (32-36) g/dL RDW Std Deviation (36.4-46.3) fL RDW Coeff of Jim (11.5-14.5) % Plt Count (130-400) K/uL MPV (7.4-10.4) fL Immature Gran % (Auto) % Neut % (Auto) % Lymph % (Auto) % [place] % (Auto) % Eos % (Auto) % Baso % (Auto) % Immature Gran # (Auto) (0.00-0.02) K/uL Neut # (Auto) (1.4-6.5) K/uL Lymph # (Auto) (1.2-3.4) K/uL [place] # (Auto) (0.11-0.59) K/uL Eos # (Auto) (0-0.5) K/uL Baso # (Auto) (0-0.2) K/uL Sodium (136-145) mmol/L Potassium (3.5-5.1) mmol/L Chloride (98-107) mmol/L Carbon Dioxide (21-32) mmol/L Anion Gap (3-11) BUN (7-18) mg/dl Creatinine (0.6-1.2) mg/dl Est Cr Clr Drug Dosing ml/min Est GFR ( Amer) Est GFR (Non-Af Amer) BUN/Creatinine Ratio (10-20) Glucose (70-99) mg/dl Calcium (8.5-10.1) mg/dl Total Bilirubin (0.2-1) mg/dl AST (15-37) U/L ALT (12-78) U/L Alkaline Phosphatase (45-117) U/L Total Protein (6.4-8.2) gm/dl Albumin (3.4-5.0) gm/dl Globulin (2.5-4.0) gm/dl Albumin/Globulin Ratio (0.9-2) Lipase (73-393) U/L Urine Color Yellow Urine Appearance Clear (Clear) Urine pH 6.5 (4.5-7.5) Ur Specific [place] > 1.045 H (1.000-1.030) Urine Protein Negative (Negative) Urine Glucose (UA) Negative (Negative) Urine Ketones Negative (Negative) Urine Blood 2+ H (Negative) Urine Nitrite Negative (Negative) Urine Bilirubin Negative (Negative) Urine Urobilinogen Negative (Negative) Ur Leukocyte Esterase Negative (Negative) Urine WBC (Auto) 1-5 (0-5) /hpf Urine RBC (Auto) 0-4 (0-4) /hpf U Hyaline Cast (Auto) 0 (0-5) /lpf U Epithel Cells (Auto) 20-30 H (0-5) /lpf Urine Bacteria (Auto) Negative (Negative) Hep Bs Antigen (Neg) Hepatitis C Antibody (Neg) Imaging Data Attestation: I personally reviewed and interpreted this imaging study as follows: Radiologist's Impression: CT abd pelvis IV con only CLINICAL HISTORY: Central abdominal pain COMPARISON STUDY: December 25, 2018 TECHNIQUE: The patient was scanned in a dynamic helical fashion during intravenous administration of 93 cc of Optiray 320. A dose lowering technique was utilized adhering to the principles of ALARA. CT DOSE: 636.23 mGy.cm FINDINGS: Lower chest: The heart is normal in size and configuration, without pericardial effusion. The lung bases and pleural spaces are clear. Liver: The contrast-enhanced liver is normal in size, contour, and attenuation. There is no intrahepatic biliary ductal dilatation. The hepatic veins and portal veins are patent. Gallbladder: Surgically absent Spleen: Normal in size and attenuation. Pancreas: Unremarkable. Adrenal glands: Unremarkable. Kidneys: There is symmetric renal cortical enhancement. The kidneys are normal in size without hydronephrosis. Bowel: There are no transition zones indicate bowel obstruction. There is no evidence of acute diverticulitis. By history the appendix is surgically absent. Peritoneum: There is no intraperitoneal free air or abdominal ascites. Vasculature: The abdominal aorta is normal in course and caliber. Adenopathy: None. Pelvic viscera: The uterus is surgically absent. Skeletal structures: No destructive osseous lesions are seen. IMPRESSION: 1. No acute intra-abdominal or pelvic findings 2. No evidence of bowel obstruction. No evidence of free air 3. No evidence of acute diverticulitis 4. No acute inflammatory changes 5. Surgically absent gallbladder appendix and uterus Electronically signed by: Mynor Langford M.D. 01/23/2019 3:34 PM US gallbladder CLINICAL HISTORY: 53 years-old Female presenting with ruq tenderness, abnormal LFTs, history of cholecystectomy. TECHNIQUE: Real-time grayscale and limited color Doppler ultrasound imaging of the abdomen limited to the right upper quadrant was performed. COMPARISON: CT from earlier today. FINDINGS: Pancreas: Largely obscured due to overlying bowel gas. Liver: Hyperechogenic parenchyma with heterogeneous echotexture, likely indicating fibrosis or steatosis. The liver measures 15.4 cm in maximal sagittal dimension. No sonographic evidence of hepatic mass. Main portal vein patent with normal directional flow. Biliary: No intrahepatic biliary ductal dilatation. Common bile duct measures up to 7 mm in diameter. Gallbladder: Surgically absent. Right kidney: Normal in appearance without evidence of hydronephrosis. Ascites: None. Other: None. IMPRESSION: 1. Heterogeneous and hyperechoic parenchyma could suggest underlying steatosis or fibrosis. 2. Status post cholecystectomy. Prominence of extrahepatic biliary duct likely a reservoir effect in the post cholecystectomy state. Electronically signed by: Abran Corral M.D. 01/23/2019 6:15 PM Blood Pressure Blood Pressure Findings: Elevated blood pressure Blood Pressure Disposition: further management by hospitalist ROM Narrative Patient is a 53-year-old female who presents the ER for headache in combination with abdominal pain. She was seen here yesterday for headache. She notes that she gets a headache like this every other day. Headache is located behind the right eye. Patient was slightly hypertensive. Chart was reviewed and she has multiple allergies. Labs show no significant leukocytosis or anemia. BMP with mild hypokalemia. She did have a transaminitis with ALT of 250 and AST of 170. Lipase was slightly elevated as well at 400. She notes that yesterday she had a significant amount of nausea and vomiting was able to eat anything. Today he does have nausea and is getting down some intermittent clears. UA was negative. Hepatitis panel so far is fairly negative. Ultrasound of the right upper quadrant shows a CBD of 7 mm with some dilated intrahepatic ducts. CT of the belly was unremarkable. Patient was given IV fluids, Benadryl, Compazine and Zofran. She did have significant improvement of headache which eventually returned. He did request some narcotics for headache and I encouraged her to stay away from these as they may call rebound headache. As she continued to have the nausea notes that stomach and could not tolerate clears I discussed the case with GI and the hospitalist for observation due to the transaminitis and belly pain. Nothing to suggest meningitis or encephalitis. She notes this headache is unchanged in any way from her typical headaches that she gets every other day. CT head yesterday was reviewed and unremarkable. Impression & Plan Abdominal pain, Vomiting, Transaminitis, Headache Discharge Plan Visit Data Chief Complaint: Headache Stated Complaint: migraine Other Complaint: Abdominal Pain ED Provider: Baldomero Oconnell Discharge Problem: Abdominal pain, Vomiting, Transaminitis, Headache Patient Disposition: Being Evaluated by Hospitalist Forms Stand Alone Forms: Call Back [facility] Prescriptions: No Action haloperidol 5 mg tablet 5 mg PO TID RF: 0 clonazepam 1 mg tablet 1 mg PO TID RF: 0 levothyroxine 75 mcg tablet 75 mcg PO QAM RF: 0 furosemide 20 mg Tablet 20 mg PO DAILY PRN (Reason: Edema) RF: 0 metformin 500 mg tablet extended release 24 hr 500 mg PO BID RF: 0 Abilify Maintena 400 mg suspension,extended rel recon 400 mg IM MONTHLY RF: 0 oxycodone 5 mg Tablet 5 mg PO UD RF: 0 Referrals Referrals: Christine Bender MD [Primary Care Provider] - Discharge Problem: Abdominal pain Qualifiers: Abdominal location: generalized Qualified Code(s): R10.84 - Generalized abdominal pain Vomiting Qualifiers: Vomiting type: unspecified Vomiting Intractability: non-intractable Nausea presence: with nausea Qualified Code(s): R11.2 - Nausea with vomiting, unspecified Headache Qualifiers: Headache type: unspecified Headache chronicity pattern: unspecified pattern Intractability: not intractable Qualified Code(s): R51 - Headache The scribe's documentation has been prepared under my direction and personally reviewed by me in its entirety. I confirm that the note above accurately reflects all work, treatment, procedures, and medical decision making performed by me.
--- NOTE | 2019-01-23 19:44 | History & Physical Report ---
Date of Service January 23, 2019 Assessment & Plan (1) Transaminitis: Abnormal liver studies. US/CT unremarkable. Unclear etiology -Check Tylenol level, ammonia, INR, Ferritin, acute hepatitis panel -Repeat LFT and lipase in AM -Obtain outpatient records (2) Bipolar 1 disorder: Patient reports that she is not Schizophrenic or paranoid, that she was misdiagnosed and she truly has BiPolar disorder. She follows with Behavioral Health. She receives Abilify monthly injection -Continue Haldol 5mg po TID -Check EKG for QT interval (3) Headache: Consistent with prior migraine. No alarm symptoms. Negative imaging per ER -Furinol PRN -Continue to monitor (4) Nausea: Zofran as needed -Check EKG for QT interval (5) Diabetes: -Hold Metformin -ISS (6) Hypothyroid: -Continue Synthroid History of Present Illness Chief Complaint: Headache Primary Care Provider: Christine Bender MD 53yo female seen in the ER yesterday with severe headache - pain in left eye which travelled to the right eye. Associated with blurry vision and nausea. She had a normal CT of the head, pressures were normal with 17 in the right eye and 20 in the left eye. She was given morphine, phenergan and discharged home with Oxycodone. She presents again with continued headache. Pain mostly in right eye, 10/10, constant, throbbing. Associated with nausea and 6 episodes of NB/NB emesis as well as photosensitivity. She feels that this headache is typical of her migraines. She denies visual loss but states that the vision in her right eye is blurry. Also with mild tingling above her right eye. No additional neurological complaints. She typically takes Tylenol for her headache but reports that she hasn't taken any for this headache besides the Oxy that was given to her from the ER. Workup revealed abnormal liver studies. Patient with RUQ and RLQ abdominal discomfort. She denies EtOH or Tylenol use. No history of blood transfusions, tattoos, IVDU. She recalls that her liver labs were elevated one time before - she was seen in [place] for that. She denies fever/chills/neck pain or weakness. No additional complaints at this time.\\ ER Course: Benadryl, Zofran, Phenergan, NSS Allergies Allergy/AdvReac Type Severity Reaction Status Date / Time NSAIDS (Non-Steroidal Allergy Severe vomiting Verified 01/23/19 14:54 Anti-Inflamma propoxyphene Allergy Severe nausea and Verified 01/23/19 14:54 hives amoxicillin Allergy Unknown vomiting Verified 01/23/19 14:54 clavulanic acid Allergy Unknown vomiting Verified 01/23/19 14:54 erythromycin base Allergy Unknown vomiting Verified 01/23/19 14:54 ibuprofen Allergy Unknown tears my Verified 01/23/19 14:54 intestines up nalbuphine Allergy Unknown violent Verified 01/23/19 14:54 vomiting tramadol Allergy Unknown intestines Verified 01/23/19 14:54 turn inside out ketorolac [From Toradol] AdvReac Severe Nausea Unverified 01/23/19 14:54 Corticosteroids AdvReac Mild "INTESTINES Verified 01/23/19 14:54 (Glucocorticoids) TURN INSIDE OUT" codeine AdvReac Unknown nausea Verified 01/23/19 14:54 LYSOL CLEANEER Allergy Intermediate HIVES Uncoded 01/23/19 14:54 BREAKS OUT Home Medications Home Medications Medication Instructions Recorded Confirmed Type aripiprazole [Abiliffernandez Maintena] 400 mg IM MONTHLY 08/04/18 01/23/19 History clonazepam 1 mg PO TID 08/04/18 01/23/19 History furosemide 20 mg PO DAILY PRN 08/04/18 01/23/19 History haloperidol 5 mg PO TID 08/04/18 01/23/19 History levothyroxine 75 mcg PO QAM 08/04/18 01/23/19 History metformin 500 mg PO BID 08/04/18 01/23/19 History oxycodone 5 mg PO UD 01/23/19 01/23/19 History Past Med/Surg History Medical History Schizophrenia Paranoia Paranoid behavior Panic attack Mood disorder IBS (irritable bowel syndrome) Homicidal ideation Bipolar 1 disorder Anxiety Depression Diabetes Surgical History History of cholecystectomy S/P appendectomy S/P cholecystectomy S/P hysterectomy Social History Preferred Language: Kazakh Beliefs That Will Affect Care: None Current Living Situation: Alone Feels Safe at Home: Yes Smoking Status: Current every day smoker Hx Alcohol Use: No Hx Substance Use: No Review of Systems All systems reviewed & are unremarkable except as noted in HPI & below Physical Exam Vital Signs (Past 24 Hours): Last Vital Signs Temp 37 C 01/23/19 12:51 Pulse 90 01/23/19 17:23 Resp 20 01/23/19 17:23 BP 163/88 H 01/23/19 17:23 Pulse Ox 98 01/23/19 17:23 Physical Exam: General: patient resting, mild distress secondary to YO, non- toxic in appearance, AA&O x 4 Skin: warm, dry, intact, no rashes or lesions HEENT: NC/AT, PERRL, EOMI, anicteric sclera, conjunctiva without injection, external ear normal to inspection and nontender, nares patent, moist mucus membranes, dentition intact, no oropharyngeal lesions, neck supple, trachea midline, no LAD, no thyromegaly, no JVD Heart: +S1/S2, regular, no m/r/g Lungs: equal air entry bilaterally, no rales/rhonchi/wheezes Abd: +BS, soft, ND, tender in RUQ and RLQ, no rebound/guarding/peritoneal signs, no masses/organomegaly/ascites Ext: warm, 2+ pulses in UE/LE bilaterally, no clubbing/cyanosis or edema Neuro: nonfocal, patient AA&O x 4, speech intact, no facial droop, moving all extremities on command with equal strength 5/5 Results & Data Laboratory Results Lab Results 01/23/19 01/23/19 01/23/19 Range/Units 14:20 14:20 14:20 WBC 9.34 (4.8-10.8) K/uL RBC 5.17 (4.2-5.4) M/uL Hgb 16.2 H (12.0-16.0) g/dL Hct 45.7 (37-47) % MCV 88.4 (80-100) fL MCH 31.3 (25-34) pg MCHC 35.4 (32-36) g/dL RDW Std Deviation 39.7 (36.4-46.3) fL RDW Coeff of Jim 12.3 (11.5-14.5) % Plt Count 268 (130-400) K/uL MPV 10.7 H (7.4-10.4) fL Immature Gran % (Auto) 0.4 % Neut % (Auto) 82.1 % Lymph % (Auto) 13.3 % [place] % (Auto) 3.7 % Eos % (Auto) 0.3 % Baso % (Auto) 0.2 % Immature Gran # (Auto) 0.04 H (0.00-0.02) K/uL Neut # (Auto) 7.66 H (1.4-6.5) K/uL Lymph # (Auto) 1.24 (1.2-3.4) K/uL [place] # (Auto) 0.35 (0.11-0.59) K/uL Eos # (Auto) 0.03 (0-0.5) K/uL Baso # (Auto) 0.02 (0-0.2) K/uL Sodium 136 (136-145) mmol/L Potassium 3.3 L (3.5-5.1) mmol/L Chloride 102 (98-107) mmol/L Carbon Dioxide 27 (21-32) mmol/L Anion Gap 7.0 (3-11) BUN 7 (7-18) mg/dl Creatinine 0.65 (0.6-1.2) mg/dl Est Cr Clr Drug Dosing 103.2 ml/min Est GFR ( Amer) 116.7 Est GFR (Non-Af Amer) 100.7 BUN/Creatinine Ratio 10.2 (10-20) Glucose 183 H (70-99) mg/dl Calcium 9.2 (8.5-10.1) mg/dl Total Bilirubin 0.6 (0.2-1) mg/dl AST 168 H (15-37) U/L ALT 254 H (12-78) U/L Alkaline Phosphatase 240 H (45-117) U/L Total Protein 8.7 H (6.4-8.2) gm/dl Albumin 4.6 (3.4-5.0) gm/dl Globulin 4.1 H (2.5-4.0) gm/dl Albumin/Globulin Ratio 1.1 (0.9-2) Lipase 398 H (73-393) U/L Urine Color Urine Appearance (Clear) Urine pH (4.5-7.5) Ur Specific [place] (1.000-1.030) Urine Protein (Negative) Urine Glucose (UA) (Negative) Urine Ketones (Negative) Urine Blood (Negative) Urine Nitrite (Negative) Urine Bilirubin (Negative) Urine Urobilinogen (Negative) Ur Leukocyte Esterase (Negative) Urine WBC (Auto) (0-5) /hpf Urine RBC (Auto) (0-4) /hpf U Hyaline Cast (Auto) (0-5) /lpf U Epithel Cells (Auto) (0-5) /lpf Urine Bacteria (Auto) (Negative) Hep Bs Antigen Neg (Neg) Hepatitis C Antibody Neg (Neg) 01/23/19 Range/Units 16:45 WBC (4.8-10.8) K/uL RBC (4.2-5.4) M/uL Hgb (12.0-16.0) g/dL Hct (37-47) % MCV (80-100) fL MCH (25-34) pg MCHC (32-36) g/dL RDW Std Deviation (36.4-46.3) fL RDW Coeff of Jim (11.5-14.5) % Plt Count (130-400) K/uL MPV (7.4-10.4) fL Immature Gran % (Auto) % Neut % (Auto) % Lymph % (Auto) % [place] % (Auto) % Eos % (Auto) % Baso % (Auto) % Immature Gran # (Auto) (0.00-0.02) K/uL Neut # (Auto) (1.4-6.5) K/uL Lymph # (Auto) (1.2-3.4) K/uL [place] # (Auto) (0.11-0.59) K/uL Eos # (Auto) (0-0.5) K/uL Baso # (Auto) (0-0.2) K/uL Sodium (136-145) mmol/L Potassium (3.5-5.1) mmol/L Chloride (98-107) mmol/L Carbon Dioxide (21-32) mmol/L Anion Gap (3-11) BUN (7-18) mg/dl Creatinine (0.6-1.2) mg/dl Est Cr Clr Drug Dosing ml/min Est GFR ( Amer) Est GFR (Non-Af Amer) BUN/Creatinine Ratio (10-20) Glucose (70-99) mg/dl Calcium (8.5-10.1) mg/dl Total Bilirubin (0.2-1) mg/dl AST (15-37) U/L ALT (12-78) U/L Alkaline Phosphatase (45-117) U/L Total Protein (6.4-8.2) gm/dl Albumin (3.4-5.0) gm/dl Globulin (2.5-4.0) gm/dl Albumin/Globulin Ratio (0.9-2) Lipase (73-393) U/L Urine Color Yellow Urine Appearance Clear (Clear) Urine pH 6.5 (4.5-7.5) Ur Specific [place] > 1.045 H (1.000-1.030) Urine Protein Negative (Negative) Urine Glucose (UA) Negative (Negative) Urine Ketones Negative (Negative) Urine Blood 2+ H (Negative) Urine Nitrite Negative (Negative) Urine Bilirubin Negative (Negative) Urine Urobilinogen Negative (Negative) Ur Leukocyte Esterase Negative (Negative) Urine WBC (Auto) 1-5 (0-5) /hpf Urine RBC (Auto) 0-4 (0-4) /hpf U Hyaline Cast (Auto) 0 (0-5) /lpf U Epithel Cells (Auto) 20-30 H (0-5) /lpf Urine Bacteria (Auto) Negative (Negative) Hep Bs Antigen (Neg) Hepatitis C Antibody (Neg) Diagnostic Findings [place], [place] [phone] CT Scan Report Patient: CRYS VASQUEZ GAdmit Date: 01/23/19 MR#: [id number]: [address] Acct ID:[id number]: [facility] [address] [facility] 1965[facility] Zip: [place] [address] Age: 53Location: ED Sex: F Room/Bed: Att Phy: Diagnosis: HEADACHE Lorraine Phy: RV. Stephanie, MDService Date: 01/23/19 Fam Phy: Interpreting Phy: Mynor Langford MD Admit Phy: Ordering Phy: Baldomero Oconnell, cc: ~ CT abd pelvis IV con only CLINICAL HISTORY: Central abdominal pain COMPARISON STUDY: December 25, 2018 TECHNIQUE: The patient was scanned in a dynamic helical fashion during intravenous administration of 93 cc of Optiray 320. A dose lowering technique was utilized adhering to the principles of ALARA. CT DOSE: 636.23 mGy.cm FINDINGS: Lower chest: The heart is normal in size and configuration, without pericardial effusion. The lung bases and pleural spaces are clear. Liver: The contrast-enhanced liver is normal in size, contour, and attenuation. There is no intrahepatic biliary ductal dilatation. The hepatic veins and portal veins are patent. Gallbladder: Surgically absent Spleen: Normal in size and attenuation. Pancreas: Unremarkable. Adrenal glands: Unremarkable. Kidneys: There is symmetric renal cortical enhancement. The kidneys are normal in size without hydronephrosis. Bowel: There are no transition zones indicate bowel obstruction. There is no evidence of acute diverticulitis. By history the appendix is surgically absent. Peritoneum: There is no intraperitoneal free air or abdominal ascites. Vasculature: The abdominal aorta is normal in course and caliber. Adenopathy: None. Pelvic viscera: The uterus is surgically absent. Skeletal structures: No destructive osseous lesions are seen. IMPRESSION: 1. No acute intra-abdominal or pelvic findings 2. No evidence of bowel obstruction. No evidence of free air 3. No evidence of acute diverticulitis 4. No acute inflammatory changes 5. Surgically absent gallbladder appendix and uterus Electronically signed by: Mynor Langford M.D. 01/23/2019 3:34 PM Dictated: 01/23/19 1529 Transcribed: 01/23/19 1533 [place], [place] [phone] Ultrasound Report Patient: CRYS VASQUEZ Date: 01/23/19 MR#: [id number]: [address] Acct ID:[id number]: ANNE [facility]UNA [address] Date: 1965[facility] Zip: [place] [address] Age: 53Location: ED Sex: F Room/Bed: Att Phy: Diagnosis: HEADACHE Lorraine Phy: RV. Stephanie, MDService Date: 01/23/19 Fam Phy: Interpreting Phy: Abran Corral MD Admit Phy: Ordering Phy: Baldomero Oconnell, cc: ~ US gallbladder CLINICAL HISTORY: 53 years-old Female presenting with ruq tenderness, abnormal LFTs, history of cholecystectomy. TECHNIQUE: Real-time grayscale and limited color Doppler ultrasound imaging of the abdomen limited to the right upper quadrant was performed. COMPARISON: CT from earlier today. FINDINGS: Pancreas: Largely obscured due to overlying bowel gas. Liver: Hyperechogenic parenchyma with heterogeneous echotexture, likely indicating fibrosis or steatosis. The liver measures 15.4 cm in maximal sagittal dimension. No sonographic evidence of hepatic mass. Main portal vein patent with normal directional flow. Biliary: No intrahepatic biliary ductal dilatation. Common bile duct measures up to 7 mm in diameter. Gallbladder: Surgically absent. Right kidney: Normal in appearance without evidence of hydronephrosis. Ascites: None. Other: None. IMPRESSION: 1. Heterogeneous and hyperechoic parenchyma could suggest underlying steatosis or fibrosis. 2. Status post cholecystectomy. Prominence of extrahepatic biliary duct likely a reservoir effect in the post cholecystectomy state. Electronically signed by: Abran Corral M.D. 01/23/2019 6:15 PM Dictated: 01/23/191813 Transcribed: 01/23/191813 Code Status & VTE Plan Code Status FULL VTE Prophylaxis Plan VTE Prophylaxis will be ordered: Yes Critical Care Time Critical Care Time: No (1) Headache Headache chronicity pattern: unspecified pattern Headache type: unspecified Intractability: not intractable Qualified Code(s): R51 - Headache (2) Diabetes Diabetes mellitus type: type 2 Diabetes mellitus snf insulin use: without terminal block assembler use Diabetes mellitus complication status: without complication Qualified Code(s): E11.9 - Type 2 diabetes mellitus without complications
[2019-01-23] MEDS ORDERED: GLUCOSE 10 TABS/TUBE PO PRN (21:37)
[2019-01-23] MEDS ORDERED: GLUCOSE 40% GEL 15 GM TUBE PO PRN (21:37)
[2019-01-23] MEDS ORDERED: GLUCAGON FOR INJ 1 MG VIAL SQ PRN (21:37)
[2019-01-23] MEDS ORDERED: CARBOHYDRATES FOR HYPOGLYCEMIA PO PRN (21:37)
[2019-01-23] MEDS ORDERED: DEXTROSE 50% 50 ML SYRINGE IV PRN (21:37)
[2019-01-23] MEDS: INSULIN ASPART 100 UNITS/ML 3 ML PEN SC SCH (21:59)
[2019-01-23] MEDS ORDERED: POTASSIUM CHLORIDE 20 MEQ TABCR PO ONE (22:00)
[2019-01-23] MEDS: clonazePAM 1 MG TAB PO SCH (22:08)
[2019-01-23 22:28] LABS: Prothrombin Time 10.7 Seconds (9.0-12.0)
[2019-01-23 22:40] LABS: Ferritin 79.3 ng/ml (8-388); Magnesium 1.8 mg/dl (1.8-2.4); Phosphorus 1.7 mg/dl (2.5-4.9)
[2019-01-24] MEDS: HALOPERIDOL 5 MG TAB PO SCH ×4 (00:38→20:34)
[2019-01-24] MEDS: LEVOTHYROXINE SODIUM 75 MCG TABLET PO SCH (06:21)
[2019-01-24 07:38] LABS: Basophils # (auto) 0.03 K/uL (0-0.2); Basophils % (auto) 0.4 %; Eosinophils # (auto) 0.12 K/uL (0-0.5); Eosinophils % (auto) 1.5 %; Hematocrit (blood only) 40.8 % (37-47); Immature Granulocytes # (auto) 0.03 K/uL (0.00-0.02); Immature Granulocytes % (auto) 0.4 %; Lymphocytes # (auto) 2.09 K/uL (1.2-3.4); Lymphocytes % (auto) 26.4 %; Mean Corpuscular Hgb Conc 34.3 g/dL (32-36); Mean Corpuscular Volume 90.7 fL (80-100); Mean Platelet Volume 10.7 fL (7.4-10.4); Monocytes # (auto) 0.53 K/uL (0.11-0.59); Monocytes % (auto) 6.7 %; Neutrophils # (auto) 5.12 K/uL (1.4-6.5); Neutrophils % (auto) 64.6 %; Platelet Count 261 K/uL (130-400); RDW Coefficient of Variation 12.6 % (11.5-14.5); RDW Standard Deviation 41.9 fL (36.4-46.3); White Blood Count 7.92 K/uL (4.8-10.8)
[2019-01-24] MEDS: BUTALBITAL/ASPIRIN/CAFFEINE 1 TAB TAB PO PRN ×2 (07:48→12:36)
[2019-01-24 08:13] LABS: BUN Creatinine Ratio 11.4 (10-20); Calcium 8.5 mg/dl (8.5-10.1); Creatinine Clr Calc Pharmacy 146.2 ml/min; Est GFR (African American) 129.8; Potassium 3.8 mmol/L (3.5-5.1)
[2019-01-24] MEDS: clonazePAM 1 MG TAB PO SCH ×3 (08:47→20:38)
[2019-01-24] MEDS: ENOXAPARIN INJ 40 MG/0.4 ML SYR SQ SCH (08:50)
[2019-01-24] MEDS: INSULIN ASPART 100 UNITS/ML 3 ML PEN SC SCH ×4 (08:54→20:33)
--- NOTE | 2019-01-24 09:45 | Gastrointestinal Consultation ---
Date of Consultation January 24, 2019 Assessment & Plan (1) Transaminitis: Patient is a 53 yo female with a one time elevation thus far of her AST to 168 and ALT of 254. T bili is unremarkable. Liver imaging includes an abdominal US that indicated steatosis vs fibrosis without alarming ductal findings and CT scan that was unremarkable as well. Differential includes viral transaminitis from underlying gastroenteritis vs infectious hepatitis vs autoimmune hepatitis vs drug-induced vs other. 1) Await results from acute hepatitis panel and Tylenol levels as ordered. If no findings and no improvement of LFTs as GI symptoms improve, would consider an outpatient autoimmune work-up at that time. 2) Trend LFTs. 3) Treat GI symptoms supportively with antiemetics and hydration. If GI symptoms worsen or evolve, would consider an MRCP though her bilirubin is normal and her US & CT did not show acute findings. 4) Given US findings of steatosis, outpatient monitoring of weight and diabetes with PCP is recommended. Patient should aim for total body weight loss of 10% in first year of diagnosis and should focus on better controlling her type 2 diabetes. Diet & exercise should be stressed. 5) Avoid hepatotoxins. 6) Further recommendations will be forthcoming pending results of these lab studies. Thank you for allowing us to participate in the care of this patient. If you should have any further questions or concerns, do not hesitate to contact us. Supervising Physician Co-Signing Physician Notes Agree with TR Jo as above Abd: Soft, NT, ND, +BS Continue current therapy and supportive care Liver panel improving History of Present Illness Reason for Consultation: Transaminitis Attending Physician: Graham Miner History of Present Illness Patient is a 53 yo female with a past medical history of hypothyroidism, schizophrenia, paranoid behavior, panic attacks, and diabetes who presented on 01/22 to the ER due to a headache. She was discharged but subsequently returned. While her LFTs were normal on 01/22, they were elevated when she returned to the hospital. She reported nausea and vomiting as well as generalized abdominal pain. She denies any history of liver disease in the family. She denies IVDA or intranasal cocaine use. She denies jaundice or itching. She reports occasional Tylenol use, but denies taking more than prescribed. She denies a history of blood transfusions. She denies recent changes to her medication list including new meds or different dosages. She reports that the last change was on January 02 (confirmed by outpatient record check) when she began Metformin. Since admission, the patient reports her nausea and vomiting are better controlled. She reports fatigue and a headache. Evaluation thus far has included a 1 time finding of elevated LFTs with an AST of 168 and ALT of 254. On 01/22, these values were 21 and 39 respectively. Her total bilirubin is normal at 0.6. Her alk phos was 240.Hepatitis A, B, &C studies as well as labs from this AM are pending at the time of my evaluation. She has had an abdominal ultrasound that indicated hepatic steatosis vs fibrosis as well as a CT scan without acute findings. Both imaging studies show a prominent extrahepatic biliary duct likely post-cholecystectomy related. She reports that she has a family history of colon cancer (mother diagnosed in her 60s). The patient is up to date with screening colonoscopies with the most recent being in July 2018 and indicated a tubular adenoma that was removed. Allergies Allergy/AdvReac Type Severity Reaction Status Date / Time NSAIDS (Non-Steroidal Allergy Severe vomiting Verified 01/23/19 14:54 Anti-Inflamma propoxyphene Allergy Severe nausea and Verified 01/23/19 14:54 hives amoxicillin Allergy Unknown vomiting Verified 01/23/19 14:54 clavulanic acid Allergy Unknown vomiting Verified 01/23/19 14:54 erythromycin base Allergy Unknown vomiting Verified 01/23/19 14:54 ibuprofen Allergy Unknown tears my Verified 01/23/19 14:54 intestines up nalbuphine Allergy Unknown violent Verified 01/23/19 14:54 vomiting tramadol Allergy Unknown intestines Verified 01/23/19 14:54 turn inside out ketorolac [From Toradol] AdvReac Severe Nausea Unverified 01/23/19 14:54 Corticosteroids AdvReac Mild "INTESTINES Verified 01/23/19 14:54 (Glucocorticoids) TURN INSIDE OUT" codeine AdvReac Unknown nausea Verified 01/23/19 14:54 LYSOL CLEANEER Allergy Intermediate HIVES Uncoded 01/23/19 14:54 BREAKS OUT Home Medications Home Medications Medication Instructions Recorded Confirmed Type aripiprazole [Abilify Maintena] 400 mg IM MONTHLY 08/04/18 01/23/19 History clonazepam 1 mg PO TID 08/04/18 01/23/19 History furosemide 20 mg PO DAILY PRN 08/04/18 01/23/19 History haloperidol 5 mg PO TID 08/04/18 01/23/19 History levothyroxine 75 mcg PO QAM 08/04/18 01/23/19 History metformin 500 mg PO BID 08/04/18 01/23/19 History oxycodone 5 mg PO UD 01/23/19 01/23/19 History Patient History Social History Preferred Language: [place] Communication Ability: Effective Financial Secretary Required: No Beliefs That Will Affect Care: Sabianism Current Living Situation: Alone Other Information That Helps Us Care for You: No Feels Safe at Home: Yes Smoking Status: Current every day smoker Hx Alcohol Use: No Hx Substance Use: No Review of Systems Constitutional: + chills, + body aches and + fatigue Eyes: no diplopia Respiratory: no cough and no dyspnea Cardiovascular: no chest pain Gastrointestinal: + abdominal pain, + nausea and + vomiting; no bloating Genitourinary (Female): no urinary urgency muscle aches denies jaundice Neurologic: no dizziness no acute issues Endocrine: + fatigue Hematologic / Lymphatic: no easy bleeding Physical Exam Vital Signs (Past 24 Hours): Last Vital Signs Temp 36.8 C 01/24/19 07:20 Pulse 92 H 01/24/19 07:20 Resp 16 01/24/19 07:20 BP 117/79 01/24/19 07:20 Pulse Ox 96 01/24/19 07:20 Constitutional: WD/WN, vitals as above Eyes: PERRL, conjunctivae normal, anicteric sclerae ENMT: external ear and nose normal, oropharynx normal Neck: normal visual inspection Respiratory: normal respiratory effort, lungs clear to auscultation Cardiovascular: Rate/Rhythm: regular rate and regular rhythm Gastrointestinal (Abdomen): Inspection/Auscultation: abdomen normal to ins pection Percussion/Palpation: abdomen soft diffuse tenderness Musculoskeletal: no cyanosis or clubbing, extremities motor strength 5/5 Skin: no rashes, warm and dry Neurologic: Speech / Cognition: normal speech Psychiatric: Orientation: alert and oriented x 3
[2019-01-24 11:12] LABS: Hematocrit (blood only) 40.5 % (37-47); Mean Corpuscular Hgb Conc 34.6 g/dL (32-36); Mean Platelet Volume 10.5 fL (7.4-10.4); Platelet Count 265 K/uL (130-400); RDW Coefficient of Variation 12.5 % (11.5-14.5); RDW Standard Deviation 40.7 fL (36.4-46.3); White Blood Count 7.64 K/uL (4.8-10.8)
[2019-01-24 11:28] LABS: Albumin Level 3.7 gm/dl (3.4-5.0); Bilirubin Direct 0.2 mg/dl (0-0.2); Calcium 8.7 mg/dl (8.5-10.1); Creatinine Clr Calc Pharmacy 114.6 ml/min; Est GFR (African American) 119.8; Est GFR (Non-African American) 103.3; Potassium 3.7 mmol/L (3.5-5.1)
[2019-01-24 11:37] LABS: Bilirubin,Total 0.4 mg/dl (0.2-1); Total Protein 7.1 gm/dl (6.4-8.2)
[2019-01-24] MEDS: ONDANSETRON INJ 2 MG/ML 2 ML VIAL IV PRN (14:51)
--- NOTE | 2019-01-24 15:30 | Hospitalist Progress Note ---
Date of Service January 24, 2019 Assessment & Plan (1) Headache: Headache is significantly improved. Patient reports a pain level of 4 out of 10 compared to 10 out of 10 yesterday. Patient also continues to have photophobia CT of the head is within normal limits with no acute findings No trauma or evidence of trauma on physical examination Suggested outpatient follow-up for migraine therapy treatment as patient has a history of migraines Fiorinal was given and seemed to help but did cause some lightheadedness Continue current regimen and follow outpatient Anticipate discharge home tomorrow (2) Bipolar 1 disorder: Patient is stable Continue Haldol. Continue Abilify (3) Transaminitis: Unclear etiology CT abdomen pelvis negative Ultrasound is negative GI consulted -appreciate their input Hepatitis panel ordered * Hepatitis a IgM antibody pending * Hepatitis B surface antigen negative * Hepatitis B core IgM antibody pending * Hepatitis C antibody negative Tylenol level less than 2 GI recommends outpatient autoimmune workup if no other etiology discovered Status post cholecystectomy in the past AST 21, 168, 49 ALT 39, 254, 143 Alkaline phosphatase 153, 240, 175 (baseline appears to be around 150 (4) Diabetes: Outpatient Metformin held while inpatient Continue sliding scale insulin Globin A1c on 12/29/2018 was 6.7 Continue diabetic diet (5) DVT prophylaxis: Lovenox Increase ambulation Subjective Patient admitted with significant headache/migraine with poor pain control. Incidentally found to have transaminitis. AST and ALT were within normal limits on admission so this is an acute change. They are trending down. Alk phos has been chronically elevated for several months. Patient complains of minimal abdominal pain. She has no nausea or vomiting. She denies any diarrhea. She is able to ambulate without pain to her abdomen. Imaging reveals no acute cause for elevated AST or ALT. Patient tolerating diet well. No fever, chills, sweats, rigors. No falls. Patient denies any signs or symptoms of orthostasis. She did take a shower this afternoon without any difficulty. Headache pain is 4 out of 10. She is still experiencing some photophobia. Physical Exam Vital Signs (Past 24 Hours): Last Vital Signs Temp 36.7 C 01/24/19 11:00 Pulse 93 H 01/24/19 11:00 Resp 18 01/24/19 11:00 BP 114/83 01/24/19 11:00 Pulse Ox 97 01/24/19 11:00 Physical Exam: GENERAL : Moderate acute distress EYES: No icterus, gaze conjugate. PERRL NOSE: No evidence of epistaxis MOUTH: No lesions or candidiasis NECK: Supple LUNGS: CTA B/L, no wheezes, rales or rhonchi HEART: Regular, rate controlled ABDOMEN: Soft, ND, BS Present and hyperactive. Tenderness to light palpation. Positive for guarding and rebound tenderness. Unable to appreciate any masses. EXTREMITIES: No LE edema, pedal pulses intact NEURO: A&OX3. Patient still requires assistance with ambulation. Results & Data Laboratory Results Abnormal lab results 01/23/19 01/23/19 01/23/19 Range/Units 16:45 21:44 22:01 MPV (7.4-10.4) fL Immature Gran # (Auto) (0.00-0.02) K/uL Chloride (98-107) mmol/L BUN (7-18) mg/dl Creatinine (0.6-1.2) mg/dl BUN/Creatinine Ratio (10-20) Glucose (70-99) mg/dl POC Glucose 131 H (70-99) Phosphorus 1.7 L (2.5-4.9) mg/dl AST (15-37) U/L ALT (12-78) U/L Alkaline Phosphatase (45-117) U/L Ammonia (11-32) umol/L Ur Specific [place] > 1.045 H (1.000-1.030) Urine Blood 2+ H (Negative) U Epithel Cells (Auto) 20-30 H (0-5) /lpf Acetaminophen (10-30) ug/ml 01/23/19 01/23/19 01/24/19 Range/Units 22:01 22:01 06:35 MPV 10.7 H (7.4-10.4) fL Immature Gran # (Auto) 0.03 H (0.00-0.02) K/uL Chloride (98-107) mmol/L BUN (7-18) mg/dl Creatinine (0.6-1.2) mg/dl BUN/Creatinine Ratio (10-20) Glucose (70-99) mg/dl POC Glucose (70-99) Phosphorus (2.5-4.9) mg/dl AST (15-37) U/L ALT (12-78) U/L Alkaline Phosphatase (45-117) U/L Ammonia 32.4 H (11-32) umol/L Ur Specific [place] (1.000-1.030) Urine Blood (Negative) U Epithel Cells (Auto) (0-5) /lpf Acetaminophen < 2 L (10-30) ug/ml 01/24/19 01/24/19 01/24/19 Range/Units 06:35 07:45 10:55 MPV 10.5 H (7.4-10.4) fL Immature Gran # (Auto) (0.00-0.02) K/uL Chloride 108 H (98-107) mmol/L BUN 5 L (7-18) mg/dl Creatinine 0.47 L (0.6-1.2) mg/dl BUN/Creatinine Ratio (10-20) Glucose 142 H (70-99) mg/dl POC Glucose 145 H (70-99) Phosphorus (2.5-4.9) mg/dl AST (15-37) U/L ALT (12-78) U/L Alkaline Phosphatase (45-117) U/L Ammonia (11-32) umol/L Ur Specific [place] (1.000-1.030) Urine Blood (Negative) U Epithel Cells (Auto) (0-5) /lpf Acetaminophen (10-30) ug/ml 01/24/19 01/24/19 Range/Units 10:55 11:29 MPV (7.4-10.4) fL Immature Gran # (Auto) (0.00-0.02) K/uL Chloride 108 H (98-107) mmol/L BUN 3 L (7-18) mg/dl Creatinine (0.6-1.2) mg/dl BUN/Creatinine Ratio 5.0 L (10-20) Glucose 177 H (70-99) mg/dl POC Glucose 147 H (70-99) Phosphorus (2.5-4.9) mg/dl AST 49 H (15-37) U/L ALT 143 H (12-78) U/L Alkaline Phosphatase 175 H (45-117) U/L Ammonia (11-32) umol/L Ur Specific [place] (1.000-1.030) Urine Blood (Negative) U Epithel Cells (Auto) (0-5) /lpf Acetaminophen (10-30) ug/ml Diagnostic Findings CT abd pelvis IV con only CLINICAL HISTORY: Central abdominal pain COMPARISON STUDY: December 25, 2018 TECHNIQUE: The patient was scanned in a dynamic helical fashion during intravenous administration of 93 cc of Optiray 320. A dose lowering technique was utilized adhering to the principles of ALARA. CT DOSE: 636.23 mGy.cm FINDINGS: Lower chest: The heart is normal in size and configuration, without pericardial effusion. The lung bases and pleural spaces are clear. Liver: The contrast-enhanced liver is normal in size, contour, and attenuation. There is no intrahepatic biliary ductal dilatation. The hepatic veins and portal veins are patent. Gallbladder: Surgically absent Spleen: Normal in size and attenuation. Pancreas: Unremarkable. Adrenal glands: Unremarkable. Kidneys: There is symmetric renal cortical enhancement. The kidneys are normal in size without hydronephrosis. Bowel: There are no transition zones indicate bowel obstruction. There is no evidence of acute diverticulitis. By history the appendix is surgically absent. Peritoneum: There is no intraperitoneal free air or abdominal ascites. Vasculature: The abdominal aorta is normal in course and caliber. Adenopathy: None. Pelvic viscera: The uterus is surgically absent. Skeletal structures: No destructive osseous lesions are seen. IMPRESSION: 1. No acute intra-abdominal or pelvic findings 2. No evidence of bowel obstruction. No evidence of free air 3. No evidence of acute diverticulitis 4. No acute inflammatory changes 5. Surgically absent gallbladder appendix and uterus Electronically signed by: Mynor Langford M.D. 01/23/2019 3:34 PM US gallbladder CLINICAL HISTORY: 53 years-old Female presenting with ruq tenderness, abnormal LFTs, history of cholecystectomy. TECHNIQUE: Real-time grayscale and limited color Doppler ultrasound imaging of the abdomen limited to the right upper quadrant was performed. COMPARISON: CT from earlier today. FINDINGS: Pancreas: Largely obscured due to overlying bowel gas. Liver: Hyperechogenic parenchyma with heterogeneous echotexture, likely indicating fibrosis or steatosis. The liver measures 15.4 cm in maximal sagittal dimension. No sonographic evidence of hepatic mass. Main portal vein patent with normal directional flow. Biliary: No intrahepatic biliary ductal dilatation. Common bile duct measures up to 7 mm in diameter. Gallbladder: Surgically absent. Right kidney: Normal in appearance without evidence of hydronephrosis. Ascites: None. Other: None. IMPRESSION: 1. Heterogeneous and hyperechoic parenchyma could suggest underlying steatosis or fibrosis. 2. Status post cholecystectomy. Prominence of extrahepatic biliary duct likely a reservoir effect in the post cholecystectomy state. Electronically signed by: Abran Corral M.D. 01/23/2019 6:15 PM (1) Diabetes Diabetes mellitus complication status: without complication Diabetes mellitus exterminator termite insulin use: without half-way use Diabetes mellitus type: type 2 Qualified Code(s): E11.9 - Type 2 diabetes mellitus without complications (2) Headache Headache chronicity pattern: unspecified pattern Headache type: unspecified Intractability: not intractable Qualified Code(s): R51 - Headache
[2019-01-25] MEDS: LEVOTHYROXINE SODIUM 75 MCG TABLET PO SCH (06:25)
[2019-01-25 07:32] LABS: Albumin Level 3.4 gm/dl (3.4-5.0); Bilirubin Direct 0.1 mg/dl (0-0.2); Bilirubin,Total 0.4 mg/dl (0.2-1); Total Protein 6.9 gm/dl (6.4-8.2)
[2019-01-25] MEDS: HALOPERIDOL 5 MG TAB PO SCH ×3 (08:02→20:41)
[2019-01-25] MEDS: clonazePAM 1 MG TAB PO SCH ×3 (08:02→20:41)
[2019-01-25] MEDS: ENOXAPARIN INJ 40 MG/0.4 ML SYR SQ SCH (08:02)
--- NOTE | 2019-01-25 09:31 | Gastroenterology Progress Note ---
Date of Service January 25, 2019 Assessment & Plan (1) Transaminitis: Patient is a 53 yo female admitted with headache and noted to have elevated liver panel as well as abnormal imaging suggestive of steatosis vs fibrosis. Differential includes viral transaminitis from underlying gastroenteritis vs infectious hepatitis vs autoimmune hepatitis vs drug-induced vs other. 1) Liver panel is improving. 2) Outpatient follow up upon discharge for further evaluation. 3)Will sign off at this time. Thank you for allowing us to participate in the care of this patient. If you should have any further questions or concerns, do not hesitate to contact us. Supervising Physician Co-Signing Physician Notes Agree with MAURICIO Courtney as above Abd: Soft, NT, ND, +BS Continue current therapy and supportive care Subjective Patient reports ongoing headache. Denies any abdominal pain, jaundice, pruritus, dark urine, acholic stools, melena, hematochezia or other GI complaints. Liver panel is improving and is as follows:TB 0.4, AST 25, ALT 101, and ALP 152. Constitutional: + fatigue Respiratory: no problem reported Cardiovascular: no problem reported Gastrointestinal: as per Subjective / HPI Psychiatric: no problem reported Physical Exam Vital Signs (Past 24 Hours): Last Vital Signs Temp 36.8 C 01/25/19 07:34 Pulse 90 01/25/19 07:34 Resp 16 01/25/19 07:34 BP 103/71 01/25/19 07:34 Pulse Ox 93 01/25/19 07:34 Results & Data Laboratory Results Abnormal lab results 01/24/19 01/24/19 01/24/19 Range/Units 10:55 10:55 11:29 MPV 10.5 H (7.4-10.4) fL Chloride 108 H (98-107) mmol/L BUN 3 L (7-18) mg/dl BUN/Creatinine Ratio 5.0 L (10-20) Glucose 177 H (70-99) mg/dl POC Glucose 147 H (70-99) AST 49 H (15-37) U/L ALT 143 H (12-78) U/L Alkaline Phosphatase 175 H (45-117) U/L 01/24/19 01/24/19 01/25/19 Range/Units 16:42 20:26 06:21 MPV (7.4-10.4) fL Chloride (98-107) mmol/L BUN (7-18) mg/dl BUN/Creatinine Ratio (10-20) Glucose (70-99) mg/dl POC Glucose 130 H 164 H (70-99) AST (15-37) U/L ALT 101 H (12-78) U/L Alkaline Phosphatase 152 H (45-117) U/L 01/25/19 Range/Units 07:55 MPV (7.4-10.4) fL Chloride (98-107) mmol/L BUN (7-18) mg/dl BUN/Creatinine Ratio (10-20) Glucose (70-99) mg/dl POC Glucose 158 H (70-99) AST (15-37) U/L ALT (12-78) U/L Alkaline Phosphatase (45-117) U/L
[2019-01-25 10:02] LABS: Basophils # (auto) 0.03 K/uL (0-0.2); Basophils % (auto) 0.4 %; Eosinophils # (auto) 0.12 K/uL (0-0.5); Eosinophils % (auto) 1.6 %; Hematocrit (blood only) 40.9 % (37-47); Hemoglobin 14.2 g/dL (12.0-16.0); Immature Granulocytes # (auto) 0.03 K/uL (0.00-0.02); Immature Granulocytes % (auto) 0.4 %; Lymphocytes # (auto) 2.16 K/uL (1.2-3.4); Lymphocytes % (auto) 29.1 %; Mean Corpuscular Hgb Conc 34.7 g/dL (32-36); Mean Corpuscular Volume 90.3 fL (80-100); Mean Platelet Volume 10.6 fL (7.4-10.4); Monocytes # (auto) 0.38 K/uL (0.11-0.59); Monocytes % (auto) 5.1 %; Neutrophils # (auto) 4.69 K/uL (1.4-6.5); Neutrophils % (auto) 63.4 %; Platelet Count 250 K/uL (130-400); RDW Coefficient of Variation 12.6 % (11.5-14.5); RDW Standard Deviation 41.5 fL (36.4-46.3); Red Blood Count 4.53 M/uL (4.2-5.4); White Blood Count 7.41 K/uL (4.8-10.8)
[2019-01-25] MEDS: INSULIN ASPART 100 UNITS/ML 3 ML PEN SC SCH ×4 (10:06→20:18)
[2019-01-25 10:22] LABS: BUN Creatinine Ratio 21.6 (10-20); Calcium 8.4 mg/dl (8.5-10.1); Creatinine Clr Calc Pharmacy 107.4 ml/min; Est GFR (African American) 117.3; Est GFR (Non-African American) 101.2; Magnesium 2.1 mg/dl (1.8-2.4); Potassium 3.5 mmol/L (3.5-5.1)
--- NOTE | 2019-01-25 12:03 | Hospitalist Progress Note ---
Date of Service January 25, 2019 Assessment & Plan (1) Headache: Headache has returned and patient reports of being 10 out of 10 this morning Persistent photophobia Fioricet with some help yesterday CT of the head is within normal limits with no acute findings No trauma or evidence of trauma on physical examination Suggested outpatient follow-up for migraine therapy treatment as patient has a history of migraines Await labs and influenza swab (2) Bipolar 1 disorder: Patient is stable Continue Haldol. Continue Abilify (3) Transaminitis: Abnormal labs continue to trend downward Unclear etiology CT abdomen pelvis negative Ultrasound is negative GI consulted -appreciate their input Hepatitis panel ordered * Hepatitis a IgM antibody still pending * Hepatitis B surface antigen negative * Hepatitis B core IgM antibody still pending * Hepatitis C antibody negative Tylenol level less than 2 GI recommends outpatient autoimmune workup if no other etiology discovered Status post cholecystectomy in the past AST 21, 168, 49 ALT 39, 254, 143 Alkaline phosphatase 153, 240, 175 (baseline appears to be around 150 (4) Diabetes: Outpatient Metformin held while inpatient Continue sliding scale insulin Globin A1c on 12/29/2018 was 6.7 Continue diabetic diet (5) DVT prophylaxis: Lovenox Increase ambulation Comment: Initially anticipated discharge home today. However, patient is more tired and states that she does not feel well and has systemic body aches and chills. We are currently rechecking labs and checking for influenza swab for influenza type a and type B. Will discuss with Dr. Miner to recheck later this afternoon and to follow-up on labs regarding discharge plan. Subjective Received call from nursing that patient was more confused and not responsive. Saw patient at bedside and she was alert and oriented to person place and time she was able to follow simple commands. She states that she feels very ill and she feels achy all over. She denies any fever or chills. She has no sweats. She has no rigors. Her headache has returned and she reports is been a 10 out of 10 pain. She continues to be photophobic. Her belly pain is improved but still present. She had a bowel movement but this seemed to be more formed and not watery. Overall LFTs have improved. Will check repeat CBC and PRP. We will also check influenza a and B given patient's symptoms. Physical Exam Vital Signs (Past 24 Hours): Last Vital Signs Temp 36.8 C 01/25/19 07:34 Pulse 90 01/25/19 07:34 Resp 16 01/25/19 07:34 BP 103/71 01/25/19 07:34 Pulse Ox 93 01/25/19 07:34 Physical Exam: GENERAL : Patient frumpy and appears to be tired. She appears ill but not in distress EYES: No icterus, gaze conjugate. PERRL NOSE: No evidence of epistaxis MOUTH: No lesions or candidiasis. Mucosa moist NECK: Supple. LUNGS: CTA B/L, no wheezes, rales or rhonchi HEART: Regular, rate controlled. ABDOMEN: Soft, NT, ND, BS Present. Minimal pain with deep palpation. No guarding today. EXTREMITIES: No LE edema, pedal pulses intact NEURO: A&OX3. Keep stating that she does not feel well and she is achy. No other neurological deficits. Results & Data Laboratory Results I have ordered additional CBC and PRP magnesium and swab for influenza type a and B. Awaiting lab results at the time of my note. Abnormal lab results 01/24/19 01/24/19 01/25/19 Range/Units 16:42 20:26 06:21 MPV (7.4-10.4) fL Immature Gran # (Auto) (0.00-0.02) K/uL Chloride (98-107) mmol/L BUN/Creatinine Ratio (10-20) Glucose (70-99) mg/dl POC Glucose 130 H 164 H (70-99) Calcium (8.5-10.1) mg/dl ALT 101 H (12-78) U/L Alkaline Phosphatase 152 H (45-117) U/L 01/25/19 01/25/19 01/25/19 Range/Units 07:55 09:44 09:44 MPV 10.6 H (7.4-10.4) fL Immature Gran # (Auto) 0.03 H (0.00-0.02) K/uL Chloride 110 H (98-107) mmol/L BUN/Creatinine Ratio 21.6 H (10-20) Glucose 196 H (70-99) mg/dl POC Glucose 158 H (70-99) Calcium 8.4 L (8.5-10.1) mg/dl ALT (12-78) U/L Alkaline Phosphatase (45-117) U/L 01/25/19 Range/Units 11:45 MPV (7.4-10.4) fL Immature Gran # (Auto) (0.00-0.02) K/uL Chloride (98-107) mmol/L BUN/Creatinine Ratio (10-20) Glucose (70-99) mg/dl POC Glucose 163 H (70-99) Calcium (8.5-10.1) mg/dl ALT (12-78) U/L Alkaline Phosphatase (45-117) U/L (1) Diabetes Diabetes mellitus complication status: without complication Diabetes mellitus medical collections specialist insulin use: without halfway use Diabetes mellitus type: type 2 Qualified Code(s): E11.9 - Type 2 diabetes mellitus without complications (2) Headache Headache chronicity pattern: unspecified pattern Headache type: unspecified Intractability: not intractable Qualified Code(s): R51 - Headache
[2019-01-25 12:48] LABS: Influenza A virus by PCR Neg for Influ A (Neg); Influenza B virus by PCR Neg for Influ B (Neg)
[2019-01-26] MEDS: LEVOTHYROXINE SODIUM 75 MCG TABLET PO SCH (05:51)
[2019-01-26 06:13] LABS: Hematocrit (blood only) 40.8 % (37-47); Hemoglobin 14.3 g/dL (12.0-16.0); Mean Corpuscular Volume 89.7 fL (80-100); Mean Platelet Volume 10.5 fL (7.4-10.4); Platelet Count 255 K/uL (130-400); RDW Coefficient of Variation 12.5 % (11.5-14.5); RDW Standard Deviation 40.6 fL (36.4-46.3); Red Blood Count 4.55 M/uL (4.2-5.4); White Blood Count 8.26 K/uL (4.8-10.8)
[2019-01-26 06:47] LABS: Creatinine Clr Calc Pharmacy 127.3 ml/min
[2019-01-26] MEDS: ENOXAPARIN INJ 40 MG/0.4 ML SYR SQ SCH (08:08)
[2019-01-26] MEDS: HALOPERIDOL 5 MG TAB PO SCH ×3 (08:08→21:48)
[2019-01-26] MEDS: clonazePAM 1 MG TAB PO SCH ×2 (08:08→14:31)
[2019-01-26] MEDS: INSULIN ASPART 100 UNITS/ML 3 ML PEN SC SCH ×4 (09:09→21:50)
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
[2019-01-26] MEDS: clonazePAM 0.5 MG TAB PO SCH (22:01)
--- NOTE | 2019-01-26 23:04 | Hospitalist Progress Note ---
Date of Service January 26, 2019 Assessment & Plan (1) Headache: (2) Bipolar 1 disorder: Patient reports that she is not Schizophrenic or paranoid, that she was misdiagnosed and she truly has BiPolar disorder. She follows with Behavioral Health. She receives Abilify monthly injection -Continue Haldol 5mg po TID Will cut back on klonopin given her ental status being lethargic. (3) Transaminitis: Abnormal liver studies. US/CT unremarkable. Unclear etiology Her LFTs have improved here. Will recommend patient to f/u with GI as an outpatient. Fatty liver is a possibilty given visual evidence that suggests steatosis as well as her BMI. (4) Diabetes: -Hold Metformin -ISS Migraine: Likely rebound headache, as patient takes medicine for headaches daily included fioricet. Will recommend cutting back on this and have patient initaite with propranolol daily. Explained goal is to decrease headaches by 50%. Explained this will take about 1 month to work. Spent 35 minutes in management of patient. This included discussion with patient, psych and patient's friend. (5) DVT prophylaxis: Subjective Patient today appears to be lethargic. I discussed case with her partner who states she is very lively and today, she appears slower than usual. Patient also reports having a headache, which she states is chronic and occurs daily. Physical Exam Vital Signs (Past 24 Hours): Last Vital Signs Temp 36.9 C 01/26/19 15:10 Pulse 104 H 01/26/19 16:07 Resp 18 01/26/19 15:10 BP 136/91 01/26/19 15:10 Pulse Ox 96 01/26/19 16:07 Physical Exam: General: patient resting, non-toxic in appearance, AA&O x 4 Skin: warm, dry, intact, no rashes or lesions HEENT: NC/AT, PERRL, EOMI, anicteric sclera, conjunctiva without injection, no LAD, no thyromegaly, no JVD Heart: +S1/S2, regular, no m/r/g Lungs: equal air entry bilaterally, no rales/rhonchi/wheezes Abd: +BS, soft, ND, tender in RUQ and RLQ, no rebound/guarding/peritoneal signs, no masses/organomegaly/ascites Ext: warm, 2+ pulses in UE/LE bilaterally, no clubbing/cyanosis or edema Neuro: nonfocal, patient AA&O x 4, speech intact, no facial droop, moving all extremities on command with equal strength 5/5 (1) Headache Headache chronicity pattern: unspecified pattern Headache type: unspecified Intractability: not intractable Qualified Code(s): R51 - Headache (2) Diabetes Diabetes mellitus type: type 2 Diabetes mellitus senior living insulin use: without senior living use Diabetes mellitus complication status: without complication Qualified Code(s): E11.9 - Type 2 diabetes mellitus without complications
[2019-01-26] MEDS: ONDANSETRON INJ 2 MG/ML 2 ML VIAL IV PRN (23:12)
[2019-01-27] MEDS: BUTALBITAL/ASPIRIN/CAFFEINE 1 TAB TAB PO PRN ×3 (02:59→14:23)
[2019-01-27] MEDS: ENOXAPARIN INJ 40 MG/0.4 ML SYR SQ SCH (07:34)
[2019-01-27] MEDS: LEVOTHYROXINE SODIUM 75 MCG TABLET PO SCH (07:34)
[2019-01-27] MEDS: HALOPERIDOL 5 MG TAB PO SCH ×3 (07:35→20:16)
[2019-01-27] MEDS: clonazePAM 0.5 MG TAB PO SCH ×3 (07:35→20:13)
[2019-01-27] MEDS: ONDANSETRON INJ 2 MG/ML 2 ML VIAL IV PRN ×3 (07:35→22:22)
[2019-01-27] MEDS: INSULIN ASPART 100 UNITS/ML 3 ML PEN SC SCH ×4 (08:13→20:14)
[2019-01-27] MEDS ORDERED: DiphenhydrAMINE HCL 50 MG/ML VIAL ONE (09:44)
[2019-01-27] MEDS ORDERED: DiphenhydrAMINE HCL 50 MG/ML VIAL IV ONE (09:45)
[2019-01-27] MEDS ORDERED: PROCHLORPERAZINE MALEATE 10 MG TAB PO ONE (09:45)
[2019-01-27 10:05] LABS: Albumin Level 3.9 gm/dl (3.4-5.0); Calcium 8.7 mg/dl (8.5-10.1); Creatinine Clr Calc Pharmacy 91.6 ml/min; Est GFR (African American) 104.7; Est GFR (Non-African American) 90.4
[2019-01-27 10:08] LABS: Albumin Globulin Ratio 1.1 (0.9-2); Bilirubin,Total 0.5 mg/dl (0.2-1); Globulin 3.7 gm/dl (2.5-4.0); Total Protein 7.6 gm/dl (6.4-8.2)
--- NOTE | 2019-01-27 11:48 | Progress Note ---
Date of Service January 27, 2019 Subjective chart reviewed given some reports of wandering last night, patient's sedation as apparently resolved. Based on vitals this am, should likely resume home dose of Klonopin assuming no coadmin with sedating substances. Physical Exam Vital Signs (Past 24 Hours): Last Vital Signs Temp 36.6 C 01/27/19 07:29 Resp 18 01/27/19 07:29 BP 145/77 H 01/27/19 07:29 Pulse Ox 96 01/27/19 07:29
[2019-01-27] MEDS ORDERED: POTASSIUM CHLORIDE 20 MEQ TABCR PO ONE (13:15)
[2019-01-27] MEDS: POTASSIUM CHLORIDE / WTR 10 MEQ/100 ML PLCT IV SCH ×4 (13:41→17:22)
[2019-01-27] MEDS ORDERED: OXYCODONE HCL IR 5 MG TAB (IMMEDIATE RELEASE) PO STA (15:44)
--- NOTE | 2019-01-27 22:30 | Hospitalist Progress Note ---
Date of Service January 27, 2019 Assessment & Plan (1) Headache: (2) Bipolar 1 disorder: Patient reports that she is not Schizophrenic or paranoid, that she was misdiagnosed and she truly has BiPolar disorder. She follows with Behavioral Health. She receives Abilify monthly injection -Continue Haldol 5mg po TID Patient klonopin will be cut back to 1 mg PO HS. Patient appears to be more awake today. Will hold off discharge as patient does not believe she is back to her baseline. (3) Transaminitis: Abnormal liver studies. US/CT unremarkable. Unclear etiology Her LFTs have improved here. Will recommend patient to f/u with GI as an outpatient. Fatty liver is a possibility given visual evidence that suggests steatosis as well as her BMI. (4) Diabetes: -Hold Metformin -ISS Migraine: Likely rebound headache, as patient takes medicine for headaches daily included fioricet. Will recommend cutting back on this and have patient initaite with propranolol daily. Explained goal is to decrease headaches by 50%. Explained this will take about 1 month to work. Chronic pain syndrome: Patient is exhibiting what likely appears to be pain seeking behavior. She asks for oral narcotics but then asks for IV narcotics. She is also wondering the halls. At this point, not sure if she is malingering or not. Will keep her in the hospital for another day. Have from psych for discharge. Spent 25 minutes in management of patient. This included discussion with patient, psych and patient's friend. (5) DVT prophylaxis: Subjective Patient today appears to be less lethargic today. She is ambulating the halls, but is ambulating Patient also reports having a headache, which she states is chronic and occurs daily. Patient is giving conflicting stories. She states she would like more medicine for her pain. She states she would like pain medicine by mouth and she could go home. However later she is asking for IV pain medicine and no longer wants pain meds at home. Physical Exam Vital Signs (Past 24 Hours): Last Vital Signs Temp 36.7 C 01/27/19 15:19 Pulse 94 H 01/27/19 15:19 Resp 18 01/27/19 15:19 BP 136/81 01/27/19 15:19 Pulse Ox 95 01/27/19 15:19 Physical Exam: General: patient resting, non-toxic in appearance, AA&O x 4 Skin: warm, dry, intact, no rashes or lesions HEENT: NC/AT, PERRL, EOMI, anicteric sclera, conjunctiva without injection, no LAD, no thyromegaly, no JVD Heart: +S1/S2, regular, no m/r/g Lungs: equal air entry bilaterally, no rales/rhonchi/wheezes Abd: +BS, soft, ND, tender in RUQ and RLQ, no rebound/guarding/peritoneal signs, no masses/organomegaly/ascites Ext: warm, 2+ pulses in UE/LE bilaterally, no clubbing/cyanosis or edema Neuro: nonfocal, patient AA&O x 4, speech intact, no facial droop, moving all extremities on command with equal strength 5/5 (1) Diabetes Diabetes mellitus complication status: without complication Diabetes mellitus manager intermediate insulin use: without manager intermediate use Diabetes mellitus type: type 2 Qualified Code(s): E11.9 - Type 2 diabetes mellitus without complications (2) Headache Headache chronicity pattern: unspecified pattern Headache type: unspecified Intractability: not intractable Qualified Code(s): R51 - Headache
[2019-01-28] MEDS: LEVOTHYROXINE SODIUM 75 MCG TABLET PO SCH (06:35)
[2019-01-28] MEDS: INSULIN ASPART 100 UNITS/ML 3 ML PEN SC SCH ×4 (08:51→20:47)
[2019-01-28] MEDS: ENOXAPARIN INJ 40 MG/0.4 ML SYR SQ SCH (08:51)
[2019-01-28] MEDS: HALOPERIDOL 5 MG TAB PO SCH ×2 (08:52→12:53)
[2019-01-28] MEDS: ONDANSETRON INJ 2 MG/ML 2 ML VIAL IV PRN ×2 (12:53→20:34)
[2019-01-28] MEDS ORDERED: ALUMINUM/MAGNESIUM SUSP 30 ML UDC PO PRN (16:46)
[2019-01-28] MEDS ORDERED: ALUMINUM/MAGNESIUM SUSP 30 ML UDC ONE (17:37)
[2019-01-28] MEDS: clonazePAM 0.5 MG TAB PO SCH (20:33)
[2019-01-28] MEDS ORDERED: HALOPERIDOL 5 MG TAB PO SCH (21:00)
--- NOTE | 2019-01-28 23:04 | Hospitalist Progress Note ---
Date of Service January 28, 2019 Assessment & Plan (1) Headache: (2) Bipolar 1 disorder: Patient reports that she is not Schizophrenic or paranoid, that she was misdiagnosed and she truly has BiPolar disorder. She follows with Behavioral Health. She receives Abilify monthly injection Concern over sedating meds. Will switch haldol to 15 mg PO HS. However patient already received her 2 doses of 5mg of haldol today. She will receive the third dose tonight and will then get haldol 15mg tomorrow. D/W vern who is at bedside. Will hold off discharge. (3) Transaminitis: Abnormal liver studies. US/CT unremarkable. Unclear etiology Her LFTs have improved here. Will recommend patient to f/u with GI as an outpatient. Fatty liver is a possibility given visual evidence that suggests steatosis as well as her BMI. (4) Diabetes: -Hold Metformin -ISS Migraine: Likely rebound headache, as patient takes medicine for headaches daily included fioricet. Will recommend cutting back on this and have patient initaite with propranolol daily. Explained goal is to decrease headaches by 50%. Explained this will take about 1 month to work. Chronic pain syndrome: Earlier in hospital stay, Patient is exhibiting what likely appears to be pain seeking behavior. She asks for oral narcotics but then asks for IV narcotics. She is also wondering the halls. At this point, not sure if she is malingering or not. Currently not complaining of pain. Spent 25 minutes in management of patient. This included discussion with patient, psych and patient's friend. (5) DVT prophylaxis: Subjective Patient today appears to be less lethargic today. She is ambulating the halls again, but no longer walking into the [place]. She does not report a headache today. D/W psych, will try to decrease day time medicine that may sedate patient. Physical Exam Vital Signs (Past 24 Hours): Last Vital Signs Temp 36.7 C 01/28/19 16:00 Pulse 86 01/28/19 16:00 Resp 20 01/28/19 16:00 BP 137/88 01/28/19 16:00 Pulse Ox 96 01/28/19 16:00 Physical Exam: General: patient is awake, sitting in the chair, non-toxic in appearance, AA&O x 4 Skin: warm, dry, intact, no rashes or lesions HEENT: NC/AT, PERRL, EOMI, anicteric sclera, conjunctiva without injection, no LAD, no thyromegaly, no JVD Heart: +S1/S2, regular, no m/r/g Lungs: equal air entry bilaterally, no rales/rhonchi/wheezes Abd: +BS, soft, ND, tender in RUQ and RLQ, no rebound/guarding/peritoneal signs, no masses/organomegaly/ascites Ext: warm, 2+ pulses in UE/LE bilaterally, no clubbing/cyanosis or edema Neuro: nonfocal, patient AA&O x 4, speech intact, no facial droop, moving all extremities on command with equal strength 5/5 (1) Diabetes Diabetes mellitus complication status: without complication Diabetes mellitus shelter insulin use: without shelter use Diabetes mellitus type: type 2 Qualified Code(s): E11.9 - Type 2 diabetes mellitus without complications (2) Headache Headache chronicity pattern: unspecified pattern Headache type: unspecified Intractability: not intractable Qualified Code(s): R51 - Headache
[2019-01-29 06:07] LABS: Hematocrit (blood only) 38.3 % (37-47); Hemoglobin 12.9 g/dL (12.0-16.0); Mean Corpuscular Hgb Conc 33.7 g/dL (32-36); Mean Corpuscular Volume 91.2 fL (80-100); Mean Platelet Volume 10.9 fL (7.4-10.4); Platelet Count 249 K/uL (130-400); RDW Coefficient of Variation 12.9 % (11.5-14.5); RDW Standard Deviation 42.9 fL (36.4-46.3); White Blood Count 6.86 K/uL (4.8-10.8)
[2019-01-29] MEDS: LEVOTHYROXINE SODIUM 75 MCG TABLET PO SCH (06:18)
[2019-01-29 06:41] LABS: Creatinine Clr Calc Pharmacy 109.1 ml/min; Est GFR (African American) 117.9; Est GFR (Non-African American) 101.7
[2019-01-29] MEDS: ENOXAPARIN INJ 40 MG/0.4 ML SYR SQ SCH (08:19)
[2019-01-29] MEDS: INSULIN ASPART 100 UNITS/ML 3 ML PEN SC SCH ×4 (08:20→20:38)
[2019-01-29] MEDS: ONDANSETRON INJ 2 MG/ML 2 ML VIAL IV PRN ×3 (08:23→20:38)
[2019-01-29] MEDS ORDERED: HALOPERIDOL 5 MG TAB PO SCH ×2 (09:00→21:00)
--- NOTE | 2019-01-29 11:30 | Psychiatric Progress Note ---
Date of Service January 29, 2019 Impression / Recommendations Impression 53 yo female with probable dx of schizoaffective disorder,last seen by Dr. Nunez over the weekend. The patient reports that her current symptoms began after hospitalization, and given that she was taking 4 mg of Klonopin at home I am concerned that this is an odd version of BZD withdrawal. Will increase Klonopin to 1 mg BID and if symptoms improve, may need to go higher. There may also be a degree of akathisia related to her haldol, but her dose has been stable over time and denies that she was restless [employer]ILITY [employer]GER. Will continue to follow. (1) Mood disorder: 01/29 - Increase Klonopin to 1 mg BID with dose now due to concerns for BZD withdrawal. Risk Factors Assessment Do You Have Access To A Gun?: No Interval History Chief Complaint "I can't sit still.". Subjective Subjective Patient was seen & assessed and interval progress reviewed. The patient is pacing the halls when I encounter her. She says that she can't sit still and indeed cannot stay seated for more than 10-20 seconds before getting up. She says that she is also having trouble inspiring and expiring, demonstrating times when she appears to hold her breath, with irregular labored respirations. With guidance, she is able to sit in the chair and do some relaxation with deep breathing but without the guidance she returns to being labored. She says this has happened to her in the past, when she was a [employer], but has difficulty trying to explain the circumstances. In honesty, she says that she was taking 4 mg of Klonopin at home and had also been taking 20 mg of Haldol, not just 15 as she wa s told she could take 1 dose prn. She denies SI/HI. Physical Exam Vital Signs (Past 24 Hours) Last Vital Signs Temp 36.8 C 01/29/19 07:09 Pulse 94 H 01/29/19 07:09 Resp 18 01/29/19 07:09 BP 158/87 H 01/29/19 07:09 Pulse Ox 93 01/29/19 07:09 Musculoskeletal No evidence of cogwheeling or stiffness to upper extremities. Gait is slowed, bradykinetic arms. Results & Data Laboratory Results Laboratory Results - last 24 hr 01/28/19 01/28/19 01/28/19 11:48 16:45 20:30 WBC RBC Hgb Hct MCV MCH MCHC RDW Std Deviation RDW Coeff of Jim Plt Count MPV Creatinine Est Cr Clr Drug Dosing Est GFR ( Amer) Est GFR (Non-Af Amer) POC Glucose 205 H 137 H 142 H 01/29/19 01/29/19 01/29/19 05:52 05:52 07:48 WBC 6.86 RBC 4.20 Hgb 12.9 Hct 38.3 MCV 91.2 MCH 30.7 MCHC 33.7 RDW Std Deviation 42.9 RDW Coeff of Jim 12.9 Plt Count 249 MPV 10.9 H Creatinine 0.63 Est Cr Clr Drug Dosing 109.1 Est GFR ( Amer) 117.9 Est GFR (Non-Af Amer) 101.7 POC Glucose 176 H Current Inpatient Medications Current Inpatient Medications: Current Inpatient Medications Al Hydrox/Mg Hydrox/Simethicone (Maalox) 30 ml PO Q6H PRN PRN Reason: Nausea Stop: 02/27/19 16:45 Butalbital/Aspirin/Caffeine (Fiorinal) 2 tab PO Q4H PRN PRN Reason: Headache Stop: 02/22/19 21:36 Last Admin: 01/27/19 14:23 Dose: 2 tab Documented by: Clonazepam (Klonopin) 1 mg PO BID [facility] Stop: 02/28/19 11:14 Dextrose (Dextrose 50%) 25 - 50 ml IV UD PRN; Protocol PRN Reason: Hypoglycemia Protocol Stop: 02/22/19 21:36 Enoxaparin Sodium (Lovenox) 40 mg SQ Q24H [facility] Stop: 02/23/19 07:59 Last Admin: 01/29/19 08:19 Dose: 40 mg Documented by: Glucagon (Glucagen) 1 mg SQ UD PRN; Protocol PRN Reason: Hypoglycemia Protocol Stop: 02/22/19 21:36 Glucose (Glucose 40%) 15 - 30 gm PO UD PRN; Protocol PRN Reason: Hypoglycemia Protocol Stop: 02/22/19 21:36 Glucose (Dex4 Glucose) 4 - 8 tabs PO UD PRN; Protocol PRN Reason: Hypoglycemia Protocol Stop: 02/22/19 21:36 Haloperidol (Haldol) 15 mg PO HS [facility] Stop: 02/28/19 20:59 Insulin Aspart (Novolog Flexpen) 0 units SC [facility] Stop: 02/22/19 21:59 Last Admin: 01/29/19 08:20 Dose: 1 units Documented by: Levothyroxine Sodium (Synthroid) 75 mcg PO DAILYBB [facility] Stop: 02/23/19 06:29 Last Admin: 01/29/19 06:18 Dose: 75 mcg Documented by: Miscellaneous (Carbohydrates For Hypoglycemia) 15 - 30 gm PO UD PRN PRN Reason: Hypoglycemia Treatment Stop: 02/22/19 21:36 Ondansetron HCl (Zofran) 4 mg IV Q6H PRN PRN Reason: Nausea Stop: 02/22/19 21:36 Last Admin: 01/29/19 08:23 Dose: 4 mg Documented by: Oxycodone HCl (Roxicodone Immediate Rel) 10 mg PO Q6H PRN PRN Reason: Pain Stop: 02/10/19 18:32 CPT Code CPT Code 15017
[2019-01-29] MEDS: clonazePAM 1 MG TAB PO SCH ×2 (11:52→20:36)
[2019-01-29] MEDS ORDERED: clonazePAM 0.5 MG TAB PO STA (13:47)
[2019-01-29] MEDS: OXYCODONE HCL IR 5 MG TAB (IMMEDIATE RELEASE) PO PRN (21:56)
--- NOTE | 2019-01-29 23:54 | Hospitalist Progress Note ---
Date of Service January 29, 2019 Assessment & Plan (1) Headache: (2) Bipolar 1 disorder: Patient reports that she is not Schizophrenic or paranoid, that she was misdiagnosed and she truly has BiPolar disorder. She follows with Behavioral Health. She receives Abilify monthly injection Concern over sedating meds. Switch haldol to 15 mg PO HS.. (01/29 IS FIRST DOSE) Concern over odd presentation of lethargy, psych believes this may be benzo withdrawal. Will resume her clonazepam. Will continue to monitor. Psych will continue to follow. (3) Transaminitis: Abnormal liver studies. US/CT unremarkable. Unclear etiology Her LFTs have improved here. Will recommend patient to f/u with GI as an outpatient. Fatty liver is a possibility given visual evidence that suggests steatosis as well as her BMI. (4) Diabetes: -Hold Metformin -ISS Migraine: Likely rebound headache, as patient takes medicine for headaches daily included fioricet. Will recommend cutting back on this and have patient initaite with propranolol daily. Explained goal is to decrease headaches by 50%. Explained this will take about 1 month to work. On 01/29 she is not complaining of a headache Chronic pain syndrome: Earlier in hospital stay, Patient is exhibiting what likely appears to be pain seeking behavior. She asks for oral narcotics but then asks for IV narcotics. She is also wondering the halls. At this point, not sure if she is malingering or not. Currently not complaining of pain. Spent 25 minutes in management of patient. This included discussion with patient, psych and patient's friend. (5) DVT prophylaxis: Subjective Patient today appears is ambulating the halls slowly. She appears to be more awake today. She does not report a headache today. D/W psych, concern over benzo withdrawal? Resumed benzo. Physical Exam Vital Signs (Past 24 Hours): Last Vital Signs Temp 36.9 C 01/29/19 15:18 Pulse 85 01/29/19 15:18 Resp 18 01/29/19 15:18 BP 108/68 01/29/19 15:18 Pulse Ox 94 01/29/19 15:18 Physical Exam: General: patient is awake, sitting in the chair, non-toxic in appearance Skin: warm, dry, intact, no rashes or lesions HEENT: NC/AT, PERRL, EOMI, anicteric sclera, conjunctiva without injection, no LAD, no thyromegaly, no JVD Heart: +S1/S2, regular, no m/r/g Lungs: equal air entry bilaterally, no rales/rhonchi/wheezes Abd: +BS, soft, ND, tender in RUQ and RLQ, no rebound/guarding/peritoneal signs, no masses/organomegaly/ascites Ext: warm, 2+ pulses in UE/LE bilaterally, no clubbing/cyanosis or edema Neuro: nonfocal, patient AA&O x 3, speech intact, no facial droop, moving all extremities on command with equal strength 5/5 (1) Diabetes Diabetes mellitus complication status: without complication Diabetes mellitus termite inspector insulin use: without senior care use Diabetes mellitus type: type 2 Qualified Code(s): E11.9 - Type 2 diabetes mellitus without complications (2) Headache Headache chronicity pattern: unspecified pattern Headache type: unspecified Intractability: not intractable Qualified Code(s): R51 - Headache
[2019-01-30] MEDS: LEVOTHYROXINE SODIUM 75 MCG TABLET PO SCH (06:13)
[2019-01-30] MEDS: ENOXAPARIN INJ 40 MG/0.4 ML SYR SQ SCH (08:15)
[2019-01-30] MEDS: clonazePAM 1 MG TAB PO SCH ×2 (08:15→20:49)
[2019-01-30] MEDS: OXYCODONE HCL IR 5 MG TAB (IMMEDIATE RELEASE) PO PRN (08:33)
[2019-01-30] MEDS: ONDANSETRON INJ 2 MG/ML 2 ML VIAL IV PRN ×2 (08:33→21:03)
[2019-01-30] MEDS: INSULIN ASPART 100 UNITS/ML 3 ML PEN SC SCH ×4 (09:03→20:59)
--- NOTE | 2019-01-30 09:09 | Hospitalist Progress Note ---
Date of Service January 30, 2019 Assessment & Plan (1) Headache: (2) Bipolar 1 disorder: Patient reports that she is not Schizophrenic or paranoid, that she was misdiagnosed and she truly has BiPolar disorder. She follows with Behavioral Health. She receives Abilify monthly injection Concern over sedating meds. Switcheed haldol to 15 mg PO HS.. (01/29 WAS FIRST DOSE), due to worsening agitation artane was given with improvement, haldol was stopped , she did have her im abilify 01/30 Concern over odd presentation of lethargy, psych believes this may extrapyramidal symptoms, toxic encephalopathy Psychiatry did resume her clonazepam. Psychiatry will continue to follow. (3) Transaminitis: Abnormal liver studies. US/CT unremarkable. Unclear etiology Her LFTs have improved Will recommend patient to f/u with GI as an outpatient. Fatty liver is a possibility given visual evidence that suggests steatosis as well as her BMI of 33. (4) Diabetes: -Hold Metformin -ISS Migraine: Likely rebound headache, as patient takes medicine for headaches daily included fioricet. Will recommend cutting back on this and have patient initaite with propranolol daily. Explained goal is to decrease headaches by 50%. Explained this will take about 1 month to work. On 01/29 she is not complaining of a headache Chronic pain syndrome: Currently not complaining of pain. (5) DVT prophylaxis: Subjective I visited the patient in the room she had requested to go home she seems somewhat to person lethargic however she states this is how she usually is. She is a marked psychiatric history is on many many medications. We did continue to pursue discharge however later in the day her outpatient case consultant saw her in claimed that the patient was in a much more distress than usual. We then reconsulted her inpatient psychiatry team who prescribed some Artane and she did have some time related improvement of her stupor Review of Systems ROS: well nourished well developed. No double vision blurry vision No problems with speech or swallowing No palpitations, chest pain or pressure No Wheezing or breathing issues No abdominal pain nausea vomiting diarrhea changes in appetite or weight No burning urine urine frequency or changes in color No focal joint pain or muscle pain No skin rashes or oral lesions No unusual bruising or bleeding No focused back pain or numbness or loss of strength Physical Exam Vital Signs (Past 24 Hours): Last Vital Signs Temp 36.6 C 01/30/19 08:36 Pulse 95 H 01/30/19 08:36 Resp 16 01/30/19 08:36 BP 141/80 H 01/30/19 08:36 Pulse Ox 95 01/30/19 08:36 The patient appeared well nourished and normally developed. Vital signs as documented. Head exam is unremarkable. normocephalic, atraumatic Neck is without jugular venous distension, thyromegaly, or lymphademopathy Lungs are clear to auscultation and percussion. Cardiac exam reveals Rhythm is regular. First and second heart sounds normal. Abdominal exam reveals normal bowel sounds, no masses, no organomegaly Extremities are nonedematous and both pedal pulses are present Neurologic exam is A&Ox3, no focal deficits, strength is equal bilateral, but globally diminished Psychologically She has increased psychomotor agitation restlessness but overall flat affect and sort of stuporous appearing Skin is warm Dry without bruises or lesions (1) Diabetes Diabetes mellitus complication status: without complication Diabetes mellitus jail insulin use: without jail use Diabetes mellitus type: type 2 Qualified Code(s): E11.9 - Type 2 diabetes mellitus without complications (2) Headache Headache chronicity pattern: unspecified pattern Headache type: unspecified Intractability: not intractable Qualified Code(s): R51 - Headache
[2019-01-30] MEDS ORDERED: ARIPIPRAZOLE 400 MG KIT IM ONE (11:00)
[2019-01-30] MEDS ORDERED: TRIHEXYPHENIDYL HCL 2 MG TAB PO STA (13:18)
--- NOTE | 2019-01-30 14:58 | Psychiatric Progress Note ---
Date of Service January 30, 2019 Impression / Recommendations Impression Since yesterday the patient has had multiple doses of Klonopin that have not improved her presentation and so BZD withdrawal seems less likely. I gave her a one time dose of Artane 5 mg today which seems to have markedly improved her restlessness and cognition leading one to believe that her restlessness was akathisia. If she is accurate, and she has been on her current antipsychotic regimen for "a long time", then I am confused as to why she would develop akathisia now. None the less, I will order Artane 2 mg BID and she should have prompt follow up with her psychiatric provider. Less likely is an odd pre sentation of TD, and we will hold her Haldol tonight. Records should be sent to her OP provider (1) Mood disorder: 01/29 - Increase Klonopin to 1 mg BID with dose now due to concerns for BZD withdrawal. 01/30 - Restlessness responded to Artane 5 mg. - Will schedule Artane 2 mg BID - No indication for inpatient mental health treatment - Treatment recommendations have been reviewed with both Dr. Ambrose and Dr. Grewal Risk Factors Assessment Do You Have Access To A Gun?: No Interval History Chief Complaint "I am feeling better. ". Subjective Subjective Patient was seen & assessed and interval progress reviewed. The patient says that she is feeling much less restless and more comfortable after receiving a dose of Artane. She is seated on the bed and remains there during the conversation. Nursing reports that her ed case manager Samantha Ervin was in today and reported that her current presentation is not baseline for her. At baseline she is functional, works and takes care of herself. the patient is likening this episode to one she had after she broke her leg, was at [facility] and required "triple doses" of medications to take care of it. Although she is more fluent today, she is not yet able to clarify all of her statements. Ama says that she has been on the combination of Abilify Maintenna and Haldol "for a long time" and has never had this kind of reaction. She denies aud/vis hallucinations. Denies SI/HI. She is focused on wanting to go home. Physical Exam Psychiatric Orientation: alert and cooperative Apperance: + disheveled Eye Contact: good eye contact Motor Behavior: no abnormal motor movements Speech: normal rate/rhythm/volume of speech (tired sounding) Affect: + flat affect Mood: + anxious mood Thought Process: goal directed thought process (but poorly able to flesh out her answers. ) Thought Content: reality based without delusions Suicidal Thoughts: denies suicidal thoughts Homicidal Thoughts: denies homicidal thoughts Hallucinations: no auditory hallucinations and no visual hallucinations Cognition: attention grossly intact and language grossly intact Estimated Intelligence: consistent with education level Insight: + limited insight Judgement: + limited judgement Vital Signs (Past 24 Hours) Last Vital Signs Temp 36.6 C 01/30/19 11:40 Pulse 95 H 01/30/19 11:40 Resp 16 01/30/19 11:40 BP 141/80 H 01/30/19 11:40 Pulse Ox 95 01/30/19 11:40 Results & Data Laboratory Results Laboratory Results - last 24 hr 01/29/19 01/29/19 01/30/19 16:58 20:26 08:02 Potassium 3.6 POC Glucose 124 H 184 H 01/30/19 01/30/19 08:14 11:47 Potassium POC Glucose 158 H 228 H Current Inpatient Medications Current Inpatient Medications: Current Inpatient Medications Al Hydrox/Mg Hydrox/Simethicone (Maalox) 30 ml PO Q6H PRN PRN Reason: Nausea Stop: 02/27/19 16:45 Clonazepam (Klonopin) 1 mg PO BID [facility] Stop: 02/28/19 11:14 Last Admin: 01/30/19 08:15 Dose: 1 mg Documented by: Dextrose (Dextrose 50%) 25 - 50 ml IV UD PRN; Protocol PRN Reason: Hypoglycemia Protocol Stop: 02/22/19 21:36 Enoxaparin Sodium (Lovenox) 40 mg SQ Q24H [facility] Stop: 02/23/19 07:59 Last Admin: 01/30/19 08:15 Dose: 40 mg Documented by: Glucagon (Glucagen) 1 mg SQ UD PRN; Protocol PRN Reason: Hypoglycemia Protocol Stop: 02/22/19 21:36 Glucose (Glucose 40%) 15 - 30 gm PO UD PRN; Protocol PRN Reason: Hypoglycemia Protocol Stop: 02/22/19 21:36 Glucose (Dex4 Glucose) 4 - 8 tabs PO UD PRN; Protocol PRN Reason: Hypoglycemia Protocol Stop: 02/22/19 21:36 Insulin Aspart (Novolog Flexpen) 0 units SC ACHS [facility] Stop: 02/22/19 21:59 Last Admin: 01/30/19 12:44 Dose: 4 units Documented by: Levothyroxine Sodium (Synthroid) 75 mcg PO DAILYBB [facility] Stop: 02/23/19 06:29 Last Admin: 01/30/19 06:13 Dose: 75 mcg Documented by: Miscellaneous (Carbohydrates For Hypoglycemia) 15 - 30 gm PO UD PRN PRN Reason: Hypoglycemia Treatment Stop: 02/22/19 21:36 Ondansetron HCl (Zofran) 4 mg IV Q6H PRN PRN Reason: Nausea Stop: 02/22/19 21:36 Last Admin: 01/30/19 08:33 Dose: 4 mg Documented by: CPT Code CPT Code 96192
[2019-01-30] MEDS: TRIHEXYPHENIDYL HCL 2 MG TAB PO SCH (20:50)
[2019-01-31] MEDS: LEVOTHYROXINE SODIUM 75 MCG TABLET PO SCH (05:14)
[2019-01-31] MEDS: TRIHEXYPHENIDYL HCL 2 MG TAB PO SCH ×3 (08:27→20:01)
[2019-01-31] MEDS: clonazePAM 1 MG TAB PO SCH ×2 (08:27→20:00)
[2019-01-31] MEDS: ENOXAPARIN INJ 40 MG/0.4 ML SYR SQ SCH (08:28)
[2019-01-31] MEDS: INSULIN ASPART 100 UNITS/ML 3 ML PEN SC SCH ×4 (08:29→20:40)
--- NOTE | 2019-01-31 17:28 | Hospitalist Progress Note ---
Date of Service January 31, 2019 Assessment & Plan (1) Headache: (2) Bipolar 1 disorder: Patient reports that she is not Schizophrenic or paranoid, that she was misdiagnosed and she truly has BiPolar disorder. She follows with Behavioral Health. She receives Abilify monthly injection Concern over sedating meds. Switcheed haldol to 15 mg PO HS.. (01/29 WAS FIRST DOSE), due to worsening agitation artane was given with improvement, haldol was stopped , she did have her im abilify 01/30, Artane dose frequency was increased on 01/31 Concern over odd presentation of lethargy, psych believes this may extrapyramidal symptoms, toxic encephalopathy Psychiatry will continue to follow. (3) Transaminitis: Abnormal liver studies have improved . US/CT unremarkable. Unclear etiology Will recommend patient to f/u with GI as an outpatient. Fatty liver is a possibility given visual evidence that suggests steatosis as well as her BMI of 33. (4) Diabetes: -Hold Metformin -ISS Migraine: Likely rebound headache, as patient takes medicine for headaches daily included fioricet. Will recommend cutting back on this and have patient initaite with propranolol daily. Explained goal is to decrease headaches by 50%. Explained this will take about 1 month to work. On 01/29 she is not complaining of a headache Chronic pain syndrome: Currently not complaining of pain. (5) DVT prophylaxis: Subjective Patient appears markedly improved from yesterday appears the Artane is helping her she was walking around the halls is not noticed any ill effects from discontinuation of her Haldol last night. Psychiatry also agrees that this may have been a atypical tardive dyskinetic reaction to her antipsychotic meds Review of Systems ROS: well nourished well developed. No double vision blurry vision No problems with speech or swallowing No palpitations, chest pain or pressure No Wheezing or breathing issues No abdominal pain nausea vomiting diarrhea changes in appetite or weight No burning urine urine frequency or changes in color No focal joint pain or muscle pain No skin rashes or oral lesions No unusual bruising or bleeding No focused back pain or numbness or loss of strength Patient still has some lethargy mumbling and some agitation at times Physical Exam Vital Signs (Past 24 Hours): Last Vital Signs Temp 36.9 C 01/31/19 08:22 Pulse 60 01/31/19 08:22 Resp 20 01/31/19 08:22 BP 101/67 01/31/19 08:22 Pulse Ox 97 01/31/19 08:22 The patient appeared well nourished and normally developed. Vital signs as documented. Head exam is unremarkable. normocephalic, atraumatic Neck is without jugular venous distension, thyromegaly, or lymphademopathy Lungs are clear to auscultation and percussion. Cardiac exam reveals Rhythm is regular. First and second heart sounds normal. Abdominal exam reveals normal bowel sounds, no masses, no organomegaly Extremities are nonedematous and both pedal pulses are present Neurologic exam is A&Ox3, no focal deficits, strength is equal bilateral he still has some mumbling to her voice and some lethargy Psychologically seems depressed Skin is warm Dry without bruises or lesions (1) Headache Headache chronicity pattern: unspecified pattern Headache type: unspecified Intractability: not intractable Qualified Code(s): R51 - Headache (2) Diabetes Diabetes mellitus type: type 2 Diabetes mellitus senior risk manager insulin use: witho ut mcfp use Diabetes mellitus complication status: without complication Qualified Code(s): E11.9 - Type 2 diabetes mellitus without complications
[2019-01-31] MEDS: ONDANSETRON INJ 2 MG/ML 2 ML VIAL IV PRN (17:51)
[2019-02-01] MEDS: ONDANSETRON INJ 2 MG/ML 2 ML VIAL IV PRN ×2 (00:06→07:41)
[2019-02-01] MEDS: LEVOTHYROXINE SODIUM 75 MCG TABLET PO SCH (06:03)
[2019-02-01 06:46] LABS: Hematocrit (blood only) 34.7 % (37-47); Hemoglobin 11.8 g/dL (12.0-16.0); Mean Corpuscular Volume 90.8 fL (80-100); Mean Platelet Volume 11.4 fL (7.4-10.4); Platelet Count 222 K/uL (130-400); RDW Coefficient of Variation 12.9 % (11.5-14.5); RDW Standard Deviation 42.5 fL (36.4-46.3); Red Blood Count 3.82 M/uL (4.2-5.4); White Blood Count 7.96 K/uL (4.8-10.8)
[2019-02-01 07:16] LABS: Creatinine Clr Calc Pharmacy 88.1 ml/min; Est GFR (African American) 99.9; Est GFR (Non-African American) 86.2
[2019-02-01] MEDS: clonazePAM 1 MG TAB PO SCH (07:41)
[2019-02-01] MEDS: TRIHEXYPHENIDYL HCL 2 MG TAB PO SCH ×2 (07:41→13:19)
[2019-02-01] MEDS: ENOXAPARIN INJ 40 MG/0.4 ML SYR SQ SCH (07:41)
[2019-02-01] MEDS: INSULIN ASPART 100 UNITS/ML 3 ML PEN SC SCH ×2 (08:40→13:17)
--- NOTE | 2019-02-01 15:47 | Discharge Summary ---
Date of Service February 01, 2019 Admission HPI Per Admitting Provider 53yo female admit for refractory YO with occular involvement. She did receive morphine, phenergan, and oxycodone and later Fioricet when returned. Attending physician thought response times seemed slowed today and was concerned as she takes psychiatric medication. Patient states that she has been taking her medications as prescribed and from a mood standpoint was "doing great" up until the point she had onset of YO. She was last seen by our service in January of 2016 at which time she was confused due to over use of Benadryl while on an outpatient commitment. She tends to argue her diagnoses of paranoid schizophrenia and refers to self as bipolar but again, stable on medication which she currently states are monitored by Dr. Natarajan. She denied SI/HI/miller and was quite clear when answering questions but tired and requested to go back to sleep. She did not express any delusions and is thankful for her care here. Principal Diagnosis headache abdominal pain drug reaction tardive dyskinesia toxic encephalopathy Discharge Exam Constitutional well developed and average body habitus Eyes no conjunctival abnormality and no scleral abnormality Neck normal visual inspection and trachea midline Respiratory normal respiratory effort; no respiratory distress Auscultation: lungs clear to auscultation bilaterally Cardiovascular RRR, no murmur, no edema Gastrointestinal (Abdomen) normal bowel sounds, soft, nontender, no hepatosplenomegaly Musculoskeletal no cyanosis or clubbing, extremities motor strength 5/5 Discharge Data Allergies Allergy/AdvReac Type Severity Reaction Status Date / Time propoxyphene Allergy Severe nausea and Verified 01/23/19 14:54 hives ketorolac [From Toradol] AdvReac Severe Nausea Unverified 01/23/19 14:54 NSAIDS (Non-Steroidal AdvReac Severe vomiting Verified 01/28/19 23:10 Anti-Inflamma Corticosteroids AdvReac Mild "INTESTINES Verified 01/23/19 14:54 (Glucocorticoids) TURN INSIDE OUT" amoxicillin AdvReac Unknown vomiting Verified 01/28/19 23:10 clavulanic acid AdvReac Unknown vomiting Verified 01/28/19 23:10 codeine AdvReac Unknown nausea Verified 01/23/19 14:54 erythromycin base AdvReac Unknown vomiting Verified 01/28/19 23:10 ibuprofen AdvReac Unknown tears my Verified 01/28/19 23:10 intestines up nalbuphine AdvReac Unknown violent Verified 01/28/19 23:10 vomiting tramadol AdvReac Unknown intestines Verified 01/28/19 23:10 turn inside out LYSOL CLEANEER Allergy Intermediate HIVES Uncoded 01/23/19 14:54 BREAKS OUT Consultations 01/23/19 17:27 ED Decision to Admit Stat 01/23/19 21:37 Consult Gastroenterology Routine 01/26/19 12:14 Consult Psychiatry Routine 01/28/19 15:37 Consult Case Management - Discharge Planning Routine Ordered Studies 01/23/19 13:50 CT abd pelvis IV con only Stat 01/23/19 17:08 US gallbladder Stat Hospital Course (1) Headache: her headache resolved after admission started on propranolol (2) Bipolar 1 disorder: Patient reports that she is not Schizophrenic or paranoid, that she was misdiagnosed and she truly has BiPolar disorder. She follows with Behavioral Health. She receives Abilify monthly injection Concern over sedating meds. Switched haldol to 15 mg PO HS.. (01/29 WAS FIRST DOSE), due to worsening agitation artane was given with improvement, haldol was stopped , she did have her im abilify 01/30, Artane dose frequency was increased on 01/31 Concern over odd presentation of lethargy, psych believes this may extrapyramidal symptoms, toxic encephalopathy Psychiatry will continue to follow up as outpt. (3) Transaminitis: Abnormal liver studies have improved . US/CT unremarkable. Unclear etiology Will recommend patient to f/u with GI as an outpatient. Fatty liver is a possibility given visual evidence that suggests steatosis as well as her BMI of 33. (4) Diabetes: resume home diabetic program Chronic pain syndrome: Currently not complaining of pain. Total Time Total Time Spent Total Time Spent (In Minutes): greater than 30 minutes were required to prepare discharge Discharge Plan Discharge Items Patient Disposition: Home - Home Health Services Reason For Visit: ABDOMINAL PAIN,YO,ABN LFTS Discharge Diagnosis: Abdominal pain, Headache, Abnormal LFTs medication reaction Discharge Goals: Decrease discomfort Activity: Resume your previous activity Non-emergency contact: Primary Care Provider Call non-emergency contact if: you have any medication questions Follow-up/Referrals: Christine Bender MD [Primary Care Provider] - 02/08/19 11:40 am (Please, follow up with Dr. Brown on MondayFebruary 08 at 11:40 am. *If you need to change this appointment, call her office at [phone].) Tori Alford CRNP [Nurse Practitioner] - 02/14/19 1:20 pm (Please, follow up at [facility] Gastroenterology Office with Tori MARTÍNEZ on February 14 at 1:20 pm. *This office is located at [address] [place] [address] in [facility]. If you need to change this appointment, call the office at [phone].) Diet: Carb Consistent or DM2 Addtl Provider Instructions: Followup with PCP in 1-2 weeks Followup with Gastroenterology for outpatient workup. Will start you on Migraine preventative medicine. Take once a day. Medicine takes up to 1 month to work. Goal is to decrease frequency and intensity of headaches by 50%. Please continue to follow up with your mental health provider Prescriptions: New propranolol [Inderal LA] 80 mg capsule,extended release 24 hr 80 mg PO DAILY Qty: 30 RF: 0 clonazepam 1 mg Tablet 1 mg PO BID Qty: 15 RF: 0 trihexyphenidyl 2 mg Tablet 2 mg PO TID Qty: 42 RF: 0 Continued clonazepam 1 mg tablet 1 mg PO TID RF: 0 levothyroxine 75 mcg tablet 75 mcg PO QAM RF: 0 furosemide 20 mg Tablet 20 mg PO DAILY PRN (Reason: Edema) RF: 0 metformin 500 mg tablet extended release 24 hr 500 mg PO BID RF: 0 aripiprazole 400 mg suspension,extended rel recon 400 mg IM MONTHLY RF: 0 Discontinued haloperidol 5 mg tablet 5 mg PO TID RF: 0 oxycodone 5 mg Tablet 5 mg PO UD RF: 0 Stand-Alone Forms: [facility] Discharge Orders: Discharge Order (Routine); Ordered 02/01/19 Ordered By: Fernando Grewal Admission Data Admit Date/Time: 01/23/19 18:39 Attending Provider: Fernando Grewal Admit Provider: Sabina Garzon Primary Care Provider: Christine Bender V. Other Providers: Sabina Garzon ; Moshe Joseph ; Tori Alford ; Louann Evans ; Janina Membreno ; Graham Miner Service: Medical Other Interventions: Discharge Summary Assessment (RN) Last Done: 02/01/19 10:10
== END 2019-02-01 15:45 | disposition home or self-care (01) | DRG 102 ==
LOC: ED 12:47 → 4E 18:39 → SUATTDRO 18:39 → 4E 20:42

== ENCOUNTER 2019-04-25 13:48 | Inpatient (IN) ==
[2019-04-25] MEDS ORDERED: SODIUM CHLORIDE 0.9% 1000ML 1,000 ML IV ONE (14:22)
--- NOTE | 2019-04-25 15:09 | XRay Report ---
XR chest 1V portable HISTORY: Altered mental status. COMPARISON: Chest 03/12/2019. FINDINGS: The lungs are clear. Cardiac silhouette is normal in size. No pleural effusions. No pneumot horax. IMPRESSION: No acute process. Electronically signed by: Ashish Mazariegos M.D. 04/25/2019 3:07 PM
[2019-04-25 15:14] LABS: Basophils # (auto) 0.02 K/uL (0-0.2); Basophils % (auto) 0.1 %; Eosinophils # (auto) 0.02 K/uL (0-0.5); Eosinophils % (auto) 0.1 %; Hematocrit (blood only) 47.1 % (37-47); Hemoglobin 16.9 g/dL (12.0-16.0); Immature Granulocytes # (auto) 0.06 K/uL (0.00-0.02); Immature Granulocytes % (auto) 0.4 %; Lymphocytes % (auto) 14.1 %; Mean Corpuscular Hgb Conc 35.9 g/dL (32-36); Mean Corpuscular Volume 85.6 fL (80-100); Mean Platelet Volume 11.3 fL (7.4-10.4); Monocytes # (auto) 0.74 K/uL (0.11-0.59); Monocytes % (auto) 5.5 %; Neutrophils # (auto) 10.78 K/uL (1.4-6.5); Neutrophils % (auto) 79.8 %; Platelet Count 327 K/uL (130-400); RDW Standard Deviation 43.3 fL (36.4-46.3); White Blood Count 13.52 K/uL (4.8-10.8)
[2019-04-25 15:49] LABS: Albumin Level 4.2 gm/dl (3.4-5.0); BUN Creatinine Ratio 17.9 (10-20); Calcium 9.4 mg/dl (8.5-10.1); Creatinine Clr Calc Pharmacy 66.4 ml/min; Est GFR (African American) 62.7; Est GFR (Non-African American) 54.1
[2019-04-25 15:58] LABS: Acetaminophen < 2 ug/ml (10-30)
[2019-04-25 16:00] LABS: Bilirubin,Total 0.5 mg/dl (0.2-1); Globulin 4.1 gm/dl (2.5-4.0); Total Protein 8.3 gm/dl (6.4-8.2)
--- NOTE | 2019-04-25 16:19 | CT Scan Report ---
CT head/brain wo con CLINICAL HISTORY: Acute change in mental status COMPARISON STUDY: 03/12/2019 TECHNIQUE: Axial CT of the brain is performed from the vertex to the skull base. IV contrast was not administered for this examination. A dose lowering technique was utilized adhering to the principles of ALARA. CT DOSE: 614.27 mGy.cm FINDINGS: No intra or extra-axial mass lesions are visualized. There is no CT evidence of acute cortical infarc tion. There is no evidence of midline shift. There is no acute hemorrhage. No calvarial fractures ar e visualized. There are patchy white matter hypodensities likely on a small vessel basis. There is no evidence of pathologic ventricular dilatation. There is no evidence of acute sinusitis IMPRESSION: No acute intracranial findings Electronically signed by: Mynor Langford M.D. 04/25/2019 4:18 PM
[2019-04-25 16:29] LABS: Troponin I 0.026 ng/ml (0-0.045)
[2019-04-25 16:34] LABS: Appearance Urine Cloudy (Clear); Bacteria Urine Automated Negative (Negative); Blood Urine Negative (Negative); Color Urine Dark Yellow; Glucose Urine UA 3+ (Negative); Ketones Urine 2+ (Negative); Leukocyte Esterase Urine Negative (Negative); Nitrite Urine Negative (Negative); Protein Urine 2+ (Negative); RBC Urine Automated 0-4 /hpf (0-4); Specific Gravity Urine 1.027 (1.000-1.030); Urobilinogen Urine Negative (Negative); pH Urine 5.5 (4.5-7.5)
[2019-04-25 16:41] LABS: Bilirubin Urine Negative (Negative); Ictotest Urine Negative (Negative)
[2019-04-25 17:06] LABS: Amphetamines+Metham, Urine Neg (Neg); Barbiturates, Urine Neg (Neg); Benzodiazepine, Urine Neg (Neg); Cocaine, Urine Neg (Neg); MDMA (Ecstacy), Urine Neg (Neg); Methadone, Urine Neg (Neg); Opiate, Urine Neg (Neg); Phencyclidine, Urine Neg (Neg)
--- NOTE | 2019-04-25 17:46 | History & Physical Report ---
Date of Service April 25, 2019 Assessment & Plan (1) Altered mental status: It is unclear as to the cause of her altered mental status. She may have taken excessive clonazepam. She will be kept n.p.o. for the time being. She did have some bladder incontinence today but no documented seizure activity. Psychiatry consultation and neurology consultation requested. Seizure precautions ordered. Telemetry Present on Admission?: Yes (2) Diabetes: Currently n.p.o. Sliding scale insulin coverage as needed (3) Hypothyroid: TSH is normal (4) DVT prophylaxis: Lovenox subcu History of Present Illness Chief Complaint: Abnormal behavior Primary Care Provider: Christine Dawson MD 54-year-old female with a history of bipolar disorder and possibly schizophreni a. She developed altered mental status today according to caregivers and apparently had some incontinence of bladder. No discernible seizure activity however. Chest x-ray is negative and head CT scan is negative. White blood cell count is mildly elevated but this may be due to stress demargination. TSH level is normal. It is not certain if she took an overdose of some of her medications. At the time of my examination the patient is lethargic and staring but will occasionally smile and is able to grasp on command with both hands but very weakly. No apparent focal motor deficits. She will not speak to me. She probably should be kept n.p.o. tonight with IV fluids until her mental status improves. Psychiatry and neurology will be consulted to see her. She is admitted for further evaluation and treatment Allergies Allergy/AdvReac Type Severity Reaction Status Date / Time propoxyphene Allergy Severe nausea and Verified 04/25/19 14:32 hives ketorolac [From Toradol] AdvReac Severe Nausea Unverified 04/25/19 14:32 NSAIDS (Non-Steroidal AdvReac Severe vomiting Verified 04/25/19 14:32 Anti-Inflamma Corticosteroids AdvReac Mild "INTESTINES Verified 04/25/19 14:32 (Glucocorticoids) TURN INSIDE OUT" amoxicillin AdvReac Unknown vomiting Verified 04/25/19 14:32 clavulanic acid AdvReac Unknown vomiting Verified 04/25/19 14:32 codeine AdvReac Unknown nausea Verified 04/25/19 14:32 erythromycin base AdvReac Unknown vomiting Verified 04/25/19 14:32 ibuprofen AdvReac Unknown tears my Verified 04/25/19 14:32 intestines up nalbuphine AdvReac Unknown violent Verified 04/25/19 14:32 vomiting tramadol AdvReac Unknown intestines Verified 04/25/19 14:32 turn inside out LYSOL CLEANEER Allergy Intermediate HIVES Uncoded 04/25/19 14:32 BREAKS OUT Home Medications Home Medications Medication Instructions Recorded Confirmed Type clonazepam 1 mg PO TID 08/04/18 04/25/19 History levothyroxine 75 mcg PO QAM 08/04/18 04/25/19 History metformin 500 mg PO BID 08/04/18 04/25/19 History propranolol [Inderal LA] 80 mg PO QAM 03/12/19 04/25/19 History cholecalciferol (vitamin D3) 5,000 unit PO DAILY 04/25/19 04/25/19 History [Vitamin D3] promethazine 12.5 mg PO Q6H PRN 04/25/19 04/25/19 History Past Med/Surg History Medical History Schizophrenia Paranoia Paranoid behavior Panic attack Mood disorder IBS (irritable bowel syndrome) Homicidal ideation Bipolar 1 disorder Anxiety Depression Diabetes Surgical History History of cholecystectomy Previous section S/P appendectomy S/P cholecystectomy S/P hysterectomy Family History Other Cancer Social History Preferred Language: Malay Communication Ability: Impaired Beliefs That Will Affect Care: Anabaptism Anabaptism Beliefs: gnosticism Current Living Situation: Alone Feels Safe at Home: Declines to Answer Smoking Status: Unknown if ever smoked Hx Alcohol Use: No Hx Substance Use: No Review of Systems Review of Systems: Unobtainable due to cognitive status Physical Exam Constitutional: + altered mental status; no acute distress and not ill appearing Staring. Nonverbal. She will follow simple commands Eyes: PERRL, conjunctivae normal, anicteric sclerae ENMT: external ear and nose normal, oropharynx normal Neck: trachea midline, no thyromegaly Respiratory: normal respiratory effort, lungs clear to auscultation Cardiovascular: RRR, no murmur, no edema Gastrointestinal (Abdomen): normal bowel sounds, soft, nontender, no hepatosplenomegaly Musculoskeletal: Extremities: no muscle atrophy, no cyanosis and no clubbing Skin: no rashes, warm and dry Neurologic: + does not move all extremities and no focal motor deficits She is able to move all extremities and wiggle her toes on both sides. She has generalized weakness. No apparent focal motor deficits. She is nonverbal with me Results & Data Vital Signs (Past 12 Hours) Vital Signs Temp Pulse Resp BP Pulse Ox 04/25/19 14:31 112 H 15 168/99 H 90 04/25/19 14:30 109 H 19 87 L 04/25/19 14:03 100 H 14 95 04/25/19 14:00 102 H 16 121/89 95 04/25/19 13:59 37.2 C 113 H 20 153/85 H 98 Laboratory Results 04/25/19 14:55 04/25/19 14:55 (1) Altered mental status Altered mental status type: unspecified Qualified Code(s): R41.82 - Altered mental status, unspecified (2) Diabetes Diabetes mellitus type: type 2 Diabetes mellitus mcfp insulin use: without joint terminal attack controller use Diabetes mellitus complication status: without complication Qualified Code(s): E11.9 - Type 2 diabetes mellitus without complications
[2019-04-25] MEDS ORDERED: ONDANSETRON INJ 2 MG/ML 2 ML VIAL IV PRN (18:27)
[2019-04-25] MEDS ORDERED: GLUCOSE 40% GEL 15 GM TUBE PO PRN (18:45)
[2019-04-25] MEDS ORDERED: DEXTROSE 50% 50 ML SYRINGE IV PRN (18:45)
[2019-04-25] MEDS ORDERED: GLUCOSE 10 TABS/TUBE PO PRN (18:45)
[2019-04-25] MEDS ORDERED: CARBOHYDRATES FOR HYPOGLYCEMIA PO PRN (18:45)
[2019-04-25] MEDS ORDERED: GLUCAGON FOR INJ 1 MG VIAL IM PRN (18:45)
[2019-04-25] MEDS: SODIUM CHLORIDE 0.9% 1000ML 1,000 ML IV SCH (18:45)
[2019-04-25 19:01] LABS: INR 1.1 (0.9-1.1); Prothrombin Time 10.8 Seconds (9.0-12.0)
[2019-04-25] MEDS ORDERED: INSULIN ASPART 100 UNITS/ML 3 ML PEN SC SCH (21:00)
[2019-04-25] MEDS: ENOXAPARIN INJ 40 MG/0.4 ML SYR SQ SCH (21:34)
--- NOTE | 2019-04-25 21:52 | Emergency Department Note ---
Entered by Consuelo Hamlin acting as a scribe for Mahad Mckeon MD ED Provider Note CHIEF COMPLAINT: Confusion HISTORY OF PRESENT ILLNESS: The patient is a 54 year old female who presents to the Emergency Room with her family preservation caseworker complaining that she's been confused since 1330 this afternoon. The family preservation caseworker states that she has not spoken to the patient for the past 9 days, so she is unsure when the symptoms began. She states that this is similar to previous episodes when the patient was diagnosed with seizures and UTIs. Her family preservation caseworker notes that patient had "an accident," stating that they found stool in one of her rooms. The patient denies any pain. The family preservation caseworker notes that they found an empty pill bottle that was recently filled at the patient's home, but she has a history of dumping her medications. HPI limited secondary to patient's mental status. REVIEW OF SYSTEMS: See HPI for pertinent positives and negatives. ROS limited secondary to mental status. PMHx/PSHx: Mood disorder, paranoid behavior, bipolar disorder, IBS, diabetes SOCIAL HISTORY: Patient lives at home. PHYSICAL EXAM: GENERAL: Awake, tired-appearing, in no distress HENT: Normocephalic, atraumatic. Oropharynx unremarkable. EYES: PERRL. Normal conjunctiva. Sclera non-icteric. NECK: Inspection normal. Non-tender. Supple. No nuchal rigidity. FROM. No masses. RESPIRATORY: Clear to auscultation. No wheezes. No rales. Normal respiratory effort. CARDIAC: Tachycardic rate. Normal rhythm. No murmurs. No rubs. Extremities warm and well perfused. Pulses equal. No JVD. GI: Soft, non-distended. No tenderness to palpation. No rebound or guarding. No masses. RECTAL: Deferred. MUSCULOSKELETAL: Atraumatic. Chest examination reveals no tenderness. The back is symmetrical on inspection without obvious abnormality. There is no CVA tenderness to palpation. No joint edema. LOWER EXTREMITIES: Calves are equal size bilaterally and non-tender. No edema. No discoloration. NEURO: Normal sensorium. Follow commands but will not speak. She did mumble "no" to the question of any pain. SKIN: No rash or jaundice noted. EMERGENCY DEPARTMENT COURSE: 1419: Past medical records reviewed. The patient was evaluated in room C12B, and a complete history and physical examination were performed. 1553: I spoke with the patients mental health case management. She said that her behavior is very abnormal, and she has a history of medical complications and UTIs. The family preservation caseworker notes that this is more similar to her past medical presentations than her psych presentations. She reports that this episode does not follow suit with her typical mental health issues. 1714: I reevaluated the patient and updated her on the results. 1718: I spoke with Dr. Mc, [facility] hospitalist, about the patient case. He will further evaluate the patient. MEDICAL DECISION MAKING: Prior records/ancillary studies reviewed and summarized above. Nursing notes reviewed and agree them. Additional history obtained from the patient's family preservation caseworker. The patient's history was concerning for altered mental status. Differential diagnosis: Etiologies such as infection, hypoglycemia, electrolyte abnormalities, cardiac sources, intracerebral event, toxicologic, neurologic, as well as others were entertained. Physical examination: As above. The patient was following commands and was alert but was not speaking. She did deny any pain. ER treatment provided: IV Lock Normal saline hydration On reassessment the patient was stable but still in the same state as when she came in. Diagnostics interpretation by me: ECG: No acute changes. The labs revealed slight leukocytosis on CBC. There are patient had mild hyperg lycemia. Chemistry panel, LFTs, magnesium, CK, TSH, tox screen, troponin and urinalysis were unremarkable. Imaging studies: CT scan of the head and chest x-ray were negative. The patient has an altered altered mental status with a negative work-up at this point. She is not safe to go home. I discussed this with her family preservation caseworker. The patient will need to be in the hospital for further testing and diagnostics. I gave my usual and customary discussion regarding this issue. Consultation: A consultation was placed with the hospitalist. The case was discussed and diagnostics were reviewed. The patient was evaluated in the ER for further treatment. IMPRESSION: Altered mental status PLAN: Admitted The scribe's documentation has been prepared under my direction and personally reviewed by me in its entirety. I confirm that the note above accurately reflects all work, treatment, procedures, and medical decision making performed by me. Impression & Plan Altered mental status Past Med/Surg History Medical History DVT prophylaxis Altered mental status (Acute) Diabetes (Chronic) Hypothyroid (Chronic) Schizophrenia Paranoia Paranoid behavior Panic attack Mood disorder IBS (irritable bowel syndrome) Homicidal ideation Bipolar 1 disorder Anxiety Depression Diabetes Surgical History History of cholecystectomy Previous section S/P appendectomy S/P cholecystectomy S/P hysterectomy Family History Other Cancer Social History Preferred Language: Faroese Communication Ability: Unable Communication Ability Comment: PT NON VERBAL Beliefs That Will Affect Care: None Current Living Situation: Alone Feels Safe at Home: Declines to Answer Smoking Status: Unknown if ever smoked Results & Data Vital Signs Vital Signs - 24 hr 04/25/19 13:59 04/25/19 14:00 04/25/19 14:03 Temperature 37.2 C Temperature Source Oral Sepsis Recent Fever Within 48 Hours No Sepsis Action Taken by Nursing No Action Required Pulse Rate 113 H 102 H 100 H Pulse Rate from SpO2 Sensor 102 H 100 H Respiratory Rate 20 16 14 Respiratory Effort / Characteristics Non-Labored Spontaneous Respiratory Depth Normal Blood Pressure 153/85 H 121/89 Blood Pressure Mean 107 99 Pulse Oximetry 98 95 95 Oxygen Delivery Method Room Air 04/25/19 14:30 04/25/19 14:31 04/25/19 14:32 Temperature Temperature Source Sepsis Recent Fever Within 48 Hours Sepsis Action Taken by Nursing Pulse Rate 109 H 112 H 110 H Pulse Rate from SpO2 Sensor 110 H 118 H 112 H Respiratory Rate 19 15 14 Respiratory Effort / Characteristics Respiratory Depth Blood Pressure 168/99 H Blood Pressure Mean 122 Pulse Oximetry 87 L 90 90 Oxygen Delivery Method 04/25/19 15:00 04/25/19 15:01 04/25/19 15:30 Temperature Temperature Source Sepsis Recent Fever Within 48 Hours Sepsis Action Taken by Nursing Pulse Rate 103 H 100 H 97 H Pulse Rate from SpO2 Sensor 97 H Respiratory Rate 13 13 13 Respiratory Effort / Characteristics Respiratory Depth Blood Pressure 141/68 H Blood Pressure Mean 92 Pulse Oximetry 96 Oxygen Delivery Method 04/25/19 15:42 04/25/19 16:52 04/25/19 16:53 Temperature Temperature Source Sepsis Recent Fever Within 48 Hours Sepsis Action Taken by Nursing Pulse Rate 109 H 106 H 102 H Pulse Rate from SpO2 Sensor 115 H 106 H 102 H Respiratory Rate 23 24 13 Respiratory Effort / Characteristics Respiratory Depth Blood Pressure 144/88 H 177/88 H Blood Pressure Mean 106 117 Pulse Oximetry 100 97 97 Oxygen Delivery Method 04/25/19 17:00 Temperature Temperature Source Sepsis Recent Fever Within 48 Hours Sepsis Action Taken by Nursing Pulse Rate 98 H Pulse Rate from SpO2 Sensor 98 H Respiratory Rate 15 Respiratory Effort / Characteristics Respiratory Depth Blood Pressure 154/75 H Blood Pressure Mean 101 Pulse Oximetry 98 Oxygen Delivery Method Home Medications Current Medication List: was personally reviewed by me Laboratory Data Attestation: I reviewed the patient's lab results. Result diagrams: 04/25/19 14:55 04/25/19 14:55 Lab Results 04/25/19 04/25/19 04/25/19 Range/Units 14:55 14:55 14:55 WBC 13.52 H (4.8-10.8) K/uL RBC 5.50 H (4.2-5.4) M/uL Hgb 16.9 H (12.0-16.0) g/dL Hct 47.1 H (37-47) % MCV 85.6 (80-100) fL MCH 30.7 (25-34) pg MCHC 35.9 (32-36) g/dL RDW Std Deviation 43.3 (36.4-46.3) fL RDW Coeff of Jim 14.0 (11.5-14.5) % Plt Count 327 (130-400) K/uL MPV 11.3 H (7.4-10.4) fL Immature Gran % (Auto) 0.4 % Neut % (Auto) 79.8 % Lymph % (Auto) 14.1 % [place] % (Auto) 5.5 % Eos % (Auto) 0.1 % Baso % (Auto) 0.1 % Immature Gran # (Auto) 0.06 H (0.00-0.02) K/uL Neut # (Auto) 10.78 H (1.4-6.5) K/uL Lymph # (Auto) 1.90 (1.2-3.4) K/uL [place] # (Auto) 0.74 H (0.11-0.59) K/uL Eos # (Auto) 0.02 (0-0.5) K/uL Baso # (Auto) 0.02 (0-0.2) K/uL PT (9.0-12.0) Seconds INR (0.9-1.1) Sodium 141 (136-145) mmol/L Potassium 4.0 (3.5-5.1) mmol/L Chloride 106 (98-107) mmol/L Carbon Dioxide 25 (21-32) mmol/L Anion Gap 10.0 (3-11) BUN 20 H (7-18) mg/dl Creatinine 1.14 (0.6-1.2) mg/dl Est Cr Clr Drug Dosing 66.4 ml/min Est GFR ( Amer) 62.7 Est GFR (Non-Af Amer) 54.1 BUN/Creatinine Ratio 17.9 (10-20) Glucose 243 H (70-99) mg/dl Calcium 9.4 (8.5-10.1) mg/dl Total Bilirubin 0.5 (0.2-1) mg/dl AST 23 (15-37) U/L ALT 46 (12-78) U/L Alkaline Phosphatase 145 H (45-117) U/L Total Creatine Kinase 41 (26-192) U/L Troponin I 0.026 (0-0.045) ng/ml Total Protein 8.3 H (6.4-8.2) gm/dl Albumin 4.2 (3.4-5.0) gm/dl Globulin 4.1 H (2.5-4.0) gm/dl Albumin/Globulin Ratio 1.0 (0.9-2) TSH 2.000 (0.300-4.500) uIu/ml Urine Color Urine Appearance (Clear) Urine pH (4.5-7.5) Ur Specific [place] (1.000-1.030) Urine Protein (Negative) Urine Glucose (UA) (Negative) Urine Ketones (Negative) Urine Blood (Negative) Urine Nitrite (Negative) Urine Bilirubin (Negative) Urine Urobilinogen (Negative) Ur Leukocyte Esterase (Negative) Urine WBC (Auto) (0-5) /hpf Urine RBC (Auto) (0-4) /hpf U Hyaline Cast (Auto) (0-5) /lpf U Epithel Cells (Auto) (0-5) /lpf Urine Bacteria (Auto) (Negative) Salicylates 3.0 (2.8-20) mg/dl Urine Opiates Screen (Neg) Ur Methadone, Qual (Neg) Acetaminophen < 2 L (10-30) ug/ml Urine Barbiturates (Neg) Ur Phencyclidine (PCP) (Neg) U Amphetamin/Meth Scrn (Neg) MDMA (Ecstasy) Screen (Neg) U Benzodiazepines Scrn (Neg) Ur Cocaine Metabolite (Neg) U Marijuana (THC) Screen (Neg) Ethyl Alcohol mg/dL (0-3) mg/dl 04/25/19 04/25/19 04/25/19 Range/Units 14:55 14:55 15:08 WBC (4.8-10.8) K/uL RBC (4.2-5.4) M/uL Hgb (12.0-16.0) g/dL Hct (37-47) % MCV (80-100) fL MCH (25-34) pg MCHC (32-36) g/dL RDW Std Deviation (36.4-46.3) fL RDW Coeff of Jim (11.5-14.5) % Plt Count (130-400) K/uL MPV (7.4-10.4) fL Immature Gran % (Auto) % Neut % (Auto) % Lymph % (Auto) % [place] % (Auto) % Eos % (Auto) % Baso % (Auto) % Immature Gran # (Auto) (0.00-0.02) K/uL Neut # (Auto) (1.4-6.5) K/uL Lymph # (Auto) (1.2-3.4) K/uL [place] # (Auto) (0.11-0.59) K/uL Eos # (Auto) (0-0.5) K/uL Baso # (Auto) (0-0.2) K/uL PT 10.8 (9.0-12.0) Seconds INR 1.1 (0.9-1.1) Sodium (136-145) mmol/L Potassium (3.5-5.1) mmol/L Chloride (98-107) mmol/L Carbon Dioxide (21-32) mmol/L Anion Gap (3-11) BUN (7-18) mg/dl Creatinine (0.6-1.2) mg/dl Est Cr Clr Drug Dosing ml/min Est GFR ( Amer) Est GFR (Non-Af Amer) BUN/Creatinine Ratio (10-20) Glucose (70-99) mg/dl Calcium (8.5-10.1) mg/dl Total Bilirubin (0.2-1) mg/dl AST (15-37) U/L ALT (12-78) U/L Alkaline Phosphatase (45-117) U/L Total Creatine Kinase (26-192) U/L Troponin I Cancelled (0-0.045) ng/ml Total Protein (6.4-8.2) gm/dl Albumin (3.4-5.0) gm/dl Globulin (2.5-4.0) gm/dl Albumin/Globulin Ratio (0.9-2) TSH (0.300-4.500) uIu/ml Urine Color Urine Appearance (Clear) Urine pH (4.5-7.5) Ur Specific [place] (1.000-1.030) Urine Protein (Negative) Urine Glucose (UA) (Negative) Urine Ketones (Negative) Urine Blood (Negative) Urine Nitrite (Negative) Urine Bilirubin (Negative) Urine Urobilinogen (Negative) Ur Leukocyte Esterase (Negative) Urine WBC (Auto) (0-5) /hpf Urine RBC (Auto) (0-4) /hpf U Hyaline Cast (Auto) (0-5) /lpf U Epithel Cells (Auto) (0-5) /lpf Urine Bacteria (Auto) (Negative) Salicylates (2.8-20) mg/dl Urine Opiates Screen (Neg) Ur Methadone, Qual (Neg) Acetaminophen (10-30) ug/ml Urine Barbiturates (Neg) Ur Phencyclidine (PCP) (Neg) U Amphetamin/Meth Scrn (Neg) MDMA (Ecstasy) Screen (Neg) U Benzodiazepines Scrn (Neg) Ur Cocaine Metabolite (Neg) U Marijuana (THC) Screen (Neg) Ethyl Alcohol mg/dL < 3.0 (0-3) mg/dl 04/25/19 04/25/19 Range/Units 15:55 15:55 WBC (4.8-10.8) K/uL RBC (4.2-5.4) M/uL Hgb (12.0-16.0) g/dL Hct (37-47) % MCV (80-100) fL MCH (25-34) pg MCHC (32-36) g/dL RDW Std Deviation (36.4-46.3) fL RDW Coeff of Jim (11.5-14.5) % Plt Count (130-400) K/uL MPV (7.4-10.4) fL Immature Gran % (Auto) % Neut % (Auto) % Lymph % (Auto) % [place] % (Auto) % Eos % (Auto) % Baso % (Auto) % Immature Gran # (Auto) (0.00-0.02) K/uL Neut # (Auto) (1.4-6.5) K/uL Lymph # (Auto) (1.2-3.4) K/uL [place] # (Auto) (0.11-0.59) K/uL Eos # (Auto) (0-0.5) K/uL Baso # (Auto) (0-0.2) K/uL PT (9.0-12.0) Seconds INR (0.9-1.1) Sodium (136-145) mmol/L Potassium (3.5-5.1) mmol/L Chloride (98-107) mmol/L Carbon Dioxide (21-32) mmol/L Anion Gap (3-11) BUN (7-18) mg/dl Creatinine (0.6-1.2) mg/dl Est Cr Clr Drug Dosing ml/min Est GFR ( Amer) Est GFR (Non-Af Amer) BUN/Creatinine Ratio (10-20) Glucose (70-99) mg/dl Calcium (8.5-10.1) mg/dl Total Bilirubin (0.2-1) mg/dl AST (15-37) U/L ALT (12-78) U/L Alkaline Phosphatase (45-117) U/L Total Creatine Kinase (26-192) U/L Troponin I (0-0.045) ng/ml Total Protein (6.4-8.2) gm/dl Albumin (3.4-5.0) gm/dl Globulin (2.5-4.0) gm/dl Albumin/Globulin Ratio (0.9-2) TSH (0.300-4.500) uIu/ml Urine Color Dark Yellow Urine Appearance Cloudy A (Clear) Urine pH 5.5 (4.5-7.5) Ur Specific [place] 1.027 (1.000-1.030) Urine Protein 2+ H (Negative) Urine Glucose (UA) 3+ H (Negative) Urine Ketones 2+ H (Negative) Urine Blood Negative (Negative) Urine Nitrite Negative (Negative) Urine Bilirubin Negative (Negative) Urine Urobilinogen Negative (Negative) Ur Leukocyte Esterase Negative (Negative) Urine WBC (Auto) 1-5 (0-5) /hpf Urine RBC (Auto) 0-4 (0-4) /hpf U Hyaline Cast (Auto) 1-5 (0-5) /lpf U Epithel Cells (Auto) 10-20 H (0-5) /lpf Urine Bacteria (Auto) Negative (Negative) Salicylates (2.8-20) mg/dl Urine Opiates Screen Neg (Neg) Ur Methadone, Qual Neg (Neg) Acetaminophen (10-30) ug/ml Urine Barbiturates Neg (Neg) Ur Phencyclidine (PCP) Neg (Neg) U Amphetamin/Meth Scrn Neg (Neg) MDMA (Ecstasy) Screen Neg (Neg) U Benzodiazepines Scrn Neg (Neg) Ur Cocaine Metabolite Neg (Neg) U Marijuana (THC) Screen Neg (Neg) Ethyl Alcohol mg/dL (0-3) mg/dl Administered Medications Enoxaparin Sodium (Lovenox) 40 mg SQ Q24H KINGSLEY Stop: 05/25/19 20:59 Last Admin: 04/25/19 21:34 Dose: 40 mg Documented by: [id number] Sodium Chloride (Nss 1000ml) 1,000 mls @ 100 mls/hr IV .Q10H KINGSLEY Stop: 05/25/19 18:26 Last Admin: 04/25/19 18:45 Dose: 100 mls/hr Documented by: [id number] Insulin Aspart (Novolog Flexpen) 0 units SC ACHS KINGSLEY Stop: 05/25/19 20:59 Last Admin: 04/25/19 21:11 Dose: 1 units Documented by: [id number] Cosigned by: [id number] Discontinued Medications Sodium Chloride (Nss 1000ml) 1,000 mls @ 999 mls/hr IV .Q1H1M ONE Stop: 04/25/19 15:22 Last Infusion: 04/25/19 16:10 Dose: 0 mls/hr Documented by: [id number] Admin: 04/25/19 15:01 Dose: 999 mls/hr Documented by: [id number] Imaging Data Radiologist's Impression: Radiology results as stated below per my review and the radiologist's interpretation: CT head/brain wo con CLINICAL HISTORY: Acute change in mental status COMPARISON STUDY: 03/12/2019 TECHNIQUE: Axial CT of the brain is performed from the vertex to the skull base. IV contrast was not administered for this examination. A dose lowering technique was utilized adhering to the principles of ALARA. CT DOSE: 614.27 mGy.cm FINDINGS: No intra or extra-axial mass lesions are visualized. There is no CT evidence of acute cortical infarction. There is no evidence of midline shift. There is no acute hemorrhage. No calvarial fractures are visualized. There are patchy white matter hypodensities likely on a small vessel basis. There is no evidence of pathologic ventricular dilatation. There is no evidence of acute sinusitis IMPRESSION: No acute intracranial findings Electronically signed by: Mynor Langford M.D. 04/25/2019 4:18 PM XR chest 1V portable HISTORY: Altered mental status. COMPARISON: Chest 03/12/2019. FINDINGS: The lungs are clear. Cardiac silhouette is normal in size. No pleural effusions. No pneumothorax. IMPRESSION: No acute process. Electronically signed by: Ashish Mazariegos M.D. 04/25/2019 3:07 PM ECG Data Attestation: I personally reviewed and interpreted this ECG as follows: Indication: other (confusion) Rate (beats per minute): 111 Rhythm: sinus tachycardia Findings: + other (nonspecific ST changes); no PAC, no PVC, no ST depression and no ST elevation Blood Pressure Blood Pressure Findings: Elevated blood pressure Blood Pressure Disposition: further management by hospitalist Discharge Plan Visit Data *Final* Discharge Date/Time: 04/25/19 18:20 Chief Complaint: Confusion Stated Complaint: ams ED Provider: Mahad Mckeon Discharge Problem: Altered mental status Patient Disposition: Admitted As Inpatient Discharge Instructions Interventions: ED Discharge Assessment Last Done: 04/25/19 18:20 Discharge Problem: Altered mental status Qualifiers: Altered mental status type: unspecified Qualified Code(s): R41.82 - Altered mental status, unspecified The scribe's documentation has been prepared under my direction and personally reviewed by me in its entirety. I confirm that the note above accurately reflects all work, treatment, procedures, and medical decision making performed by me.
[2019-04-26] MEDS ORDERED: Nursing to Pharmacy Communication ONE
[2019-04-26] MEDS: INSULIN ASPART 100 UNITS/ML 3 ML PEN SC SCH ×6 (00:15→23:46)
[2019-04-26] MEDS: SODIUM CHLORIDE 0.9% 1000ML 1,000 ML IV SCH ×2 (05:52→15:51)
[2019-04-26] MEDS: LORazepam 1 MG/2 ML VIAL IV PRN ×3 (08:36→19:28)
--- NOTE | 2019-04-26 10:26 | Neurology Consultation ---
Date of Consultation April 26, 2019 Assessment & Plan (1) Seizure-like activity: Possible seizure disorder. This patient is currently encephalopathic. Etiology not entirely clear although she could be postictal. An adverse medication effect is not completely excluded in light of her history. She has recently had an outpatient brain MRI with seizure protocol which was unremarkable. Although an outpatient EEG was ordered, the study has not been completed yet. I will order an inpatient EEG at this time and make further recommendations after completion of this test. History of Present Illness Reason for Consultation: Encephalopathy Requesting Physician: Alonzo Mc MD Attending Physician: Baldomero Ornelas DO History of Present Illness The patient is a 54-year-old female with a history of bipolar disorder and paranoia who presented to the emergency department yesterday with her bottle caser for further assessment of confusion of uncertain onset. Stool was found in 1 of the patient's rooms although it is unclear if she was incontinent. An empty pill bottle was also found in the patient's home that had recently been filled. She is a history of noncompliance with her medications. Patient is an extremely unreliable historian this morning. She is somnolent and unable to provide any specific details pertaining to her history of present illness or past medical history. The patient was evaluated in neurology clinic, with Ramona Joseph PA-C, on April 11, 2019 for an initial evaluation regarding possible seizures. The patient has a history of a seizure-like episode occurring in February characterized by twitching of the limbs, altered speech, stiffening of the limbs, and a fall from her chair to the floor. A brain MRI completed April 18, 2019 was unremarkable. Seizure protocol was performed. I reviewed the images as well as the radiologist interpretation of this test. An outpatient EEG has been ordered but is pending at this time. Family history non-contributory Allergies Allergy/AdvReac Type Severity Reaction Status Date / Time propoxyphene Allergy Severe nausea and Verified 04/25/19 14:32 hives ketorolac [From Toradol] AdvReac Severe Nausea Unverified 04/25/19 14:32 NSAIDS (Non-Steroidal AdvReac Severe vomiting Verified 04/25/19 14:32 Anti-Inflamma Corticosteroids AdvReac Mild "INTESTINES Verified 04/25/19 14:32 (Glucocorticoids) TURN INSIDE OUT" amoxicillin AdvReac Unknown vomiting Verified 04/25/19 14:32 clavulanic acid AdvReac Unknown vomiting Verified 04/25/19 14:32 codeine AdvReac Unknown nausea Verified 04/25/19 14:32 erythromycin base AdvReac Unknown vomiting Verified 04/25/19 14:32 ibuprofen AdvReac Unknown tears my Verified 04/25/19 14:32 intestines up nalbuphine AdvReac Unknown violent Verified 04/25/19 14:32 vomiting tramadol AdvReac Unknown intestines Verified 04/25/19 14:32 turn inside out LYSOL CLEANEER Allergy Intermediate HIVES Uncoded 04/25/19 14:32 BREAKS OUT Home Medications Home Medications Medication Instructions Recorded Confirmed Type clonazepam 1 mg PO TID 08/04/18 04/25/19 History levothyroxine 75 mcg PO QAM 08/04/18 04/25/19 History metformin 500 mg PO BID 08/04/18 04/25/19 History propranolol [Inderal LA] 80 mg PO QAM 03/12/19 04/25/19 History cholecalciferol (vitamin D3) 5,000 unit PO DAILY 04/25/19 04/25/19 History [Vitamin D3] promethazine 12.5 mg PO Q6H PRN 04/25/19 04/25/19 History Patient History Medical History DVT prophylaxis Altered mental status (Acute) Diabetes (Chronic) Hypothyroid (Chronic) Schizophrenia Paranoia Paranoid behavior Panic attack Mood disorder IBS (irritable bowel syndrome) Homicidal ideation Bipolar 1 disorder Anxiety Depression Diabetes Surgical History History of cholecystectomy Previous section S/P appendectomy S/P cholecystectomy S/P hysterectomy Family History Other Cancer Social History Preferred Language: Maltese Communication Ability: Unable Communication Ability Comment: PT NON VERBAL Beliefs That Will Affect Care: None marital status: Unknown Current Living Situation: Alone Feels Safe at Home: Declines to Answer Smoking Status: Unknown if ever smoked Review of Systems Review of Systems: The patient is unable to provide a review of systems due to altered mental status/lethargy Physical Exam Physical Exam: The patient is a well-developed, well-nourished female. She is somnolent and exhibits extremely poor attention. I am unable to fully assess higher integrative functions such as memory, speech, and fund of knowledge. She maintains wakefulness for only a few seconds. Although her speech was limited she did give a few, brief 1 word answers and seemed to have intact language comprehension. Visual pablo could not be adequately assessed. Pupils equal round reactive to light. Eye movements grossly intact. Facial sensation and expression intact. Hearing intact. Patient did not cooperate for full assessment of the tongue and palate and shoulder shrug. A sensory examination could not be completed due to patient's altered mental status. Deep tendon reflexes diminished throughout. Plantar responses downgoing bilaterally. Testing of coordination could not be completed due to patient's altered mental status. Patient did not cooperate adequately for a direct ophthalmoscopic examination. Carotid pulses normal bilaterally, no bruits to auscultation. Gait and station cannot be tested. Muscle strength could not be adequately tested although the patient was observed to move all 4 limbs spontaneously and to noxious stimulation. Muscle tone normal throughout. No atrophy. No ab normal movements observed. Results & Data Vital Signs (Past 12 Hours) Vital Signs Temp Pulse Resp BP Pulse Ox 04/26/19 07:37 37.2 C 115 H 20 126/98 98 04/26/19 04:16 36.9 C 126 H 20 132/92 96 04/25/19 22:56 36.4 C L 112 H 18 120/73 96 Laboratory Results Recent labs reviewed. WBC 13.52, hemoglobin 16.9, platelet count 327, sodium 141, potassium 4.0, BUN 20, creatinine 1.14, glucose 243, calcium 9.4, transaminases normal, total CK 41, urine tox screen unremarkable Diagnostic Findings A CT of the head completed yesterday was negative for hemorrhage or acute process. There is chronic small vessel ischemic change. Images and report reviewed. Brain MRI completed April 18, 2019 (outpatient study) was negative for hemorrhage or acute process. There is minimal chronic small vessel ischemic change. No evidence of mesial temporal sclerosis. Images and report reviewed. Electrocardiogram completed yesterday revealed sinus tachycardia, 111 bpm
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
--- NOTE | 2019-04-26 11:02 | Family Medicine Progress Note ---
Date of Service April 26, 2019 Assessment & Plan (1) Altered mental status: Ama is a 54-year-old female with a past medical history of bipolar disorder and recent concern for seizures. She has been admitted for acute altered mental status and incontinence. Altered mental status, unclear etiology - Different includes infection, toxic ingestion, serotonin syndrome, seizure, primary psychiatric She has a history of bipolar and possibly schizophrenia per admitting HPI. 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 Per outpatient case finisher Ama had a similar episode of incontinence and seizure-like activity in February. She was pending workup as an outpatient, is not currently on antiepileptics. All scripts chart review reveals she was last seen by her PCP on April 11 who noted that she was in her usual state of health, but under a lot of stress. She was seen for follow-up of her seizure episode in February which presented with head twitching, dysarthria, stiff limbs, foaming at the mouth, and a fall from her chair. Her episode lasted 10 minutes after which she was disoriented and had a headache. CT at that time was negative as was EKG and CBC, she was treated for UTI and discharged from the ED. Otherwise she had an episode a few years prior where she reportedly collapsed and struck her face, but this was not observed. Urinalysis showed glucose, protein, ketones but without LE or bacteria. Urine culture pending. Urine toxicology was negative for opioids, barbiturates, PCP, amphetamines, benzodiazepines, MDMA, cocaine, and THC Prior to admission Ama has prescriptions for clonazepam, levothyroxine, metformin, promethazine, and propanolol. There was initial concern for a benzodiazepine overdose causing her altered mental status, but her U tox was negative as above. Alcohol level was undetectable. Acetaminophen negative, salicylate 3.0 (low end of normal). EKG shows normal sinus tachycardia No hypoglycemia on admission Recommend proceeding with inpatient EEG at this time. Her glucose appears to be well controlled and she is on metformin monotherapy, however she does have ketonuria. This may be due to starvation ketosis, but give n her altered mental status and concern for metabolic encephalopathy with negative tox screening will add ABG in addition to a BMP and serum osmole measurement. - Could also have serotonin syndrome is she had remaining PO antipsychotics as it looks like she was recently converted to IM dosing. This is supported by diaphoresis, mild hyperreflexia, and her AMS which has improved somewhat following benzodiazepine administration and with time. - Neurology consulted. Bipolar disorder with paranoia She has a history of bipolar disorder which has been reportedly well controlled with Abilify. She currently lives in her own apartment via government [employer] for disability housing. She is followed by Steve [facility] in the [facility], was previously seen by Dr. Nelson. Receives Abilify 400 mg IM once monthly with additional clonazepam 1 mg up to 3 times daily as needed. Last dose of Abilify unclear, appears to have been March 26 but a new prescription was ordered April 05. Continue lorazepam 1mg Q1H as needed for agitation/seizure, but use cautiously in the setting of AMS. May need to hold prior to EEG. - Psychiatry consulted. 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 Case discussed extensively with Dr. Le, whenever we revisit to see her together, while she is not able to offer much HPI review of systems she does, on a bit of a 2 to 3-second delay, answer questions quite reliably. She denies pain, denies shortness of breath, denies discomfort. She is able to follow commands reliably (again on may be a 1 to 2-second delay) Vitals noted, in general she is awake and responds as above, no distress. HEENT normocephalic atraumatic mucous membranes moist. Breathing is unlabored no accessory muscle use good effort. Skin shows no rashes no pallor or icterus. Neuro shows cranial nerves II through XII be grossly intact gross motor and sensory are equal and intact as best can be assessed Altered mental statusseems to be improving. The pattern seems most consistent with some sort of reaction with her psychiatric meds question of overdose or accidental ingestion or toxicity. Differential above as per Dr. Le, but given her rate of improvement with supportive care plus or minus benefit from the benzodiazepine given, medication reaction/interaction/toxicity seems most likely. Otherwise as above Subjective Subjective history is limited by patient's mental status. She is extremely somnolent, briefly opens eyes to voice and inconsistently answers some yes/no questions but is unable to follow commands. 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 She notes that she has had a similar episode of reduced consciousness with seizure-like episodes including groaning, grunting, and moaning with incontinence last observed in February. She was having an EEG set up as an outpatient but due to difficulty scheduling this has not been done yet. Between now on February she has been in a good state of health, and has been functional including being able to hold a job. It was emphasized that she did not think this was related to psychosis. Review of Systems Review of Systems: Unobtainable due to cognitive status Physical Exam Physical Exam: General: Opens eyes spontaneously to voice, does not follow a one-step command. Inconsistently answers to yes/no questions. Maintains concentration for less than 10 seconds before falling asleep. HEENT: Atraumatic, normocephalic. Pupils equal and reactive to light bilaterally. Pulm: CTAB A&P. -wheezes, -rales, -rhonchi. Symmetrical chest rise. No increase work of breathing. No respiratory distress. Cardiac: RRR, -mrg. Radial pulses intact and symmetrical. Posterior tibial pulses intact and symmetrical. No JVD. Abdominal: Nontender, nondistended, soft. BS present. Extremity: Pulses intact as noted above. Calf circumference equal and without any swelling, erythema, or warmth. Neurologic: Some left-sided reduction in tone of the lip and epicanthal fold compared to the right while lying in bed, unable to perform active neuro exam due to mental status. 3+ patellar and bicepts DTR bilaterally with the bicepts reflex crossing wrist line. 2-3 beats of ankle clonus bilaterally which extinguishes. Results & Data Vital Signs (Past 12 Hours) Vital Signs Temp Pulse Resp BP Pulse Ox 04/26/19 10:32 36.9 C 120 H 22 162/71 H 97 04/26/19 07:37 37.2 C 115 H 20 126/98 98 04/26/19 04:16 36.9 C 126 H 20 132/92 96 Resident Activity Tracking Resident Involvement: Resident Care Provided Care Provided: Adult Hospital Medicine (1) Altered mental status Altered mental status type: unspecified Qualified Code(s): R41.82 - Altered mental status, unspecified
--- NOTE | 2019-04-26 13:57 | Procedure Note ---
EEG Procedure Note Date of Service April 26, 2019 Start / End Times Start Time: 12:14 PM End Time: 12:34 PM Referring Physician Gurjit English MD History Seizure-like activity. Confusion. Home Medication List Home Medications Medication Instructions Recorded Confirmed Type clonazepam 1 mg PO TID 08/04/18 04/25/19 History levothyroxine 75 mcg PO QAM 08/04/18 04/25/19 History metformin 500 mg PO BID 08/04/18 04/25/19 History propranolol [Inderal LA] 80 mg PO QAM 03/12/19 04/25/19 History cholecalciferol (vitamin D3) 5,000 unit PO DAILY 04/25/19 04/25/19 History [Vitamin D3] promethazine 12.5 mg PO Q6H PRN 04/25/19 04/25/19 History Inpatient Medication List Enoxaparin Sodium (Lovenox) 40 mg SQ Q24H KINGSLEY Stop: 05/25/19 20:59 Last Admin: 04/25/19 21:34 Dose: 40 mg Documented by: [id number] Sodium Chloride (Nss 1000ml) 1,000 mls @ 100 mls/hr IV .Q10H KINGSLEY Stop: 05/25/19 18:26 Last Admin: 04/26/19 05:52 Dose: 100 mls/hr Documented by: [id number] Infusion: 04/26/19 04:45 Dose: 100 mls/hr Documented by: [id number] Admin: 04/25/19 18:45 Dose: 100 mls/hr Documented by: [id number] Lorazepam (Ativan) 1 mg in 2 mls @ 2 mls/min IV Q1H PRN PRN Reason: Notification Stop: 05/25/19 18:26 Last Admin: 04/26/19 11:47 Dose: 2 mls/min Documented by: [id number] Admin: 04/26/19 08:36 Dose: 2 mls/min Documented by: [id number] Insulin Aspart (Novolog Flexpen) 0 units SC Q6 KINGSLEY Stop: 05/26/19 00:00 Last Admin: 04/26/19 13:34 Dose: Not Given Documented by: [id number] Cosigned by: [id number] Admin: 04/26/19 05:52 Dose: 1 units Documented by: [id number] Cosigned by: [id number] Admin: 04/26/19 00:15 Dose: 1 units Documented by: [id number] Cosigned by: [id number] Discontinued Medications Sodium Chloride (Nss 1000ml) 1,000 mls @ 999 mls/hr IV .Q1H1M ONE Stop: 04/25/19 15:22 Last Infusion: 04/25/19 16:10 Dose: 0 mls/hr Documented by: [id number] Admin: 04/25/19 15:01 Dose: 999 mls/hr Documented by: [id number] Insulin Aspart (Novolog Flexpen) 0 units SC ACHS KINGSLEY Stop: 05/25/19 20:59 Last Admin: 04/25/19 21:11 Dose: 1 units Documented by: [id number] Cosigned by: [id number] Description This is a 21 electrode EEG with a single channel dedicated to limited EKG. The electrodes were placed in accordance with the International 10-20 system. This is an inpatient drowsy/sleep EEG. There is a posterior dominant rhythm of 8 to 9 Hz which is symmetrically distributed and attenuates with eye opening. There is a normal anterior to posterior organization. Photic stimulation is unremarkable. Hyperventilation is not performed. There is admixed generalized 6 Hz theta activity of moderate amplitude seen throughout the majority of the study. In the latter part of the study there are a few vertex waves. Interpretation This EEG demonstrates drowsiness as well as the early stages of sleep. There is a significant degree of generalized background theta slowing throughout the majority of the study suggestive of a nonspecific encephalopathy. There is no focal or lateralized slowing. There are no epileptiform discharges or suspicious paroxysmal abnormalities. Clinical Correlation Mild nonspecific encephalopathy. No supportive evidence of seizure activity or an underlying seizure disorder on this drowsy/sleep EEG. Further clinical correlation may be needed.
[2019-04-26 14:56] LABS: Allen Test POS (Pos); HCO3 ABG 22 mmol/L (19-24); Oxygen Saturation ABG 89.8 % (90-95); PCO2 ABG 37 mmHg (35-46); PO2 ABG 57 mm/Hg (80-95); pH ABG 7.39 (7.35-7.45)
[2019-04-26 15:33] LABS: BUN Creatinine Ratio 23.5 (10-20); Calcium 8.7 mg/dl (8.5-10.1); Creatinine Clr Calc Pharmacy 118.1 ml/min; Est GFR (African American) 116.4; Est GFR (Non-African American) 100.5; Potassium 3.5 mmol/L (3.5-5.1)
[2019-04-26] MEDS: ENOXAPARIN INJ 40 MG/0.4 ML SYR SQ SCH (19:29)
[2019-04-27] MEDS: SODIUM CHLORIDE 0.9% 1000ML 1,000 ML IV SCH ×3 (01:07→20:37)
[2019-04-27] MEDS: LORazepam 1 MG/2 ML VIAL IV PRN (04:22)
[2019-04-27] MEDS: INSULIN ASPART 100 UNITS/ML 3 ML PEN SC SCH ×5 (05:55→20:36)
[2019-04-27 08:06] LABS: BUN Creatinine Ratio 19.3 (10-20); Blood Urea Nitrogen 10 mg/dl (7-18); Calcium 8.8 mg/dl (8.5-10.1); Carbon Dioxide 23 mmol/L (21-32); Chloride 114 mmol/L (98-107); Creatinine Clr Calc Pharmacy 154.2 ml/min; Est GFR (African American) 127.1; Est GFR (Non-African American) 109.7; Glucose 135 mg/dl (70-99); Sodium 145 mmol/L (136-145)
[2019-04-27 08:27] LABS: Basophils # (auto) 0.04 K/uL (0-0.2); Basophils % (auto) 0.5 %; Eosinophils # (auto) 0.13 K/uL (0-0.5); Eosinophils % (auto) 1.7 %; Hematocrit (blood only) 35.9 % (37-47); Hemoglobin 12.6 g/dL (12.0-16.0); Immature Granulocytes # (auto) 0.02 K/uL (0.00-0.02); Immature Granulocytes % (auto) 0.3 %; Lymphocytes # (auto) 2.49 K/uL (1.2-3.4); Lymphocytes % (auto) 31.9 %; Mean Corpuscular Hgb Conc 35.1 g/dL (32-36); Mean Corpuscular Volume 86.5 fL (80-100); Monocytes # (auto) 0.48 K/uL (0.11-0.59); Monocytes % (auto) 6.2 %; Neutrophils # (auto) 4.64 K/uL (1.4-6.5); Neutrophils % (auto) 59.4 %; Platelet Count 222 K/uL (130-400); RDW Coefficient of Variation 14.2 % (11.5-14.5); RDW Standard Deviation 44.7 fL (36.4-46.3); Red Blood Count 4.15 M/uL (4.2-5.4)
--- NOTE | 2019-04-27 09:10 | Neurology Progress Note ---
Date of Service April 27, 2019 Assessment & Plan (1) Seizure-like activity: Possible seizure disorder although results of evaluation including brain MRI with thin sections through the temporal lobes, and routine EEG have been unremarkable. Will hold off on starting an anticonvulsant at this time. However, if this patient were to have another clinical episode suggestive of seizures would start empiric anticonvulsant therapy at that time. Given her psychiatric history I would suggest Depakote for rapid initial treatment with a potential transition to lamotrigine on an outpatient basis. (2) Altered mental status: This patient continues to exhibit some signs of encephalopathy but does appear to be modestly improved compared with my assessment of her yesterday. She is a bit more alert and interactive but continues to exhibit some lethargy a nd inattention which limits her as a historian. The cause of her persistent but improving altered mental status is not entirely clear but could be related to a medication overdose or possibly a postictal state in spite of the unremarkable evaluation for seizure disorder recently. I agree with continuing to hold on restarting patient's psychiatric medications. Follow-up with psychiatry for further recommendations regarding this issue. Subjective Follow-up for seizure-like episodes Patient is a 54-year-old female with a history of schizoaffective disorder and a seizure-like episode occurring in February who presented to the emergency department on April 25 for further evaluation of encephalopathy. Additional details are as described in my initial consultation for this patient. The patient is slightly more alert and appropriate this morning although she remains modestly lethargic and is unable to provide additional details pertaining to her history of present illness. She does admit to feeling tired and generally weak. It does not look like she has been out of bed since her admission. She is unable to provide more specific information pertaining to her symptoms. A bedside electroencephalogram was completed yesterday afternoon and revealed a mild nonspecific encephalopathy. There is no evidence for seizure disorder. Additional details as below. Review of Systems Review of Systems: Unable to obtain due to reduced attentiveness Physical Exam Physical Exam: The patient is lethargic. She is oriented to person and place only. She exhibits impaired attention and concentration. She is able to name objects and repeat phrases. She exhibits an appropriate comprehension of vocabulary. Visual pablo full to confrontation. Visual acuity intact. Pupils equal round react to light and accommodation. Eye movements intact. There is no nystagmus. Hearing intact. Palate elevates to midline. Shoulder shrug intact. Tongue protrudes to midline. Sensation intact for all 4 limbs. Deep tendon reflexes are intact and symmetrical for the arms and legs. There is no dysdiadochokinesia or dysmetria [id number] or [id number] bilaterally. Results & Data Vital Signs (Past 12 Hours) Vital Signs Temp Pulse Resp BP BP Pulse Ox 04/27/19 07:35 37.1 C 95 H 22 150/87 H 96 04/27/19 03:31 37.1 C 95 H 18 108/74 98 04/26/19 23:40 37.1 C 107 H 19 153/89 H 96 Laboratory Results Recent labs reviewed. WBC 7.80, hemoglobin 12.6, hematocrit 35.9, platelet count 222, sodium 145, potassium 3.4, BUN 10, creatinine 0.49, glucose 135, calcium 8.8, ammonia 26.5 Diagnostic Findings An EEG completed yesterday revealed a mild nonspecific encephalopathy. No supportive evidence of seizure activity or an underlying seizure disorder. A CT of the head completed April 25, 2019 revealed patchy white matter hypodensities likely on a small vessel basis. No acute process. A brain MRI completed April 18, 2019 as an outpatient revealed minimal foci of increased T2/flair signal within the white matter likely in a small vessel basis. No mesial temporal sclerosis or other significant parenchymal disease. (1) Altered mental status Altered mental status type: unspecified Qualified Code(s): R41.82 - Altered mental status, unspecified
[2019-04-27] MEDS: DIVALPROEX DELAY RELEASE 500 MG TAB PO SCH ×2 (11:46→20:36)
--- NOTE | 2019-04-27 12:06 | Psychiatric Progress Note ---
Date of Service April 27, 2019 Impression / Recommendations Impression 54-year-old female with probable schizoaffective disorder (previous diagnoses of schizophrenia- paranoid type, and bipolar I disorder have been given), anxiety, paranoid thoughts, DM and hypothyroid, who was admitted with altered mental status on 04/25/19. normal ammonia level It is possible that patient misused Klonopin either intentionally or unintentionally and then had excessive sedation, or withdrawal seizure (vs primary seizure). Current dose of Ativan 1 mg may not be adequate to totally cover withdrawal as Klonopin wasn't tapered but MS is still altered and trying to get EEG. Will follow as MSE continues to improve, I don't see evidence of NMS and doubt that longstanding Abilify injectable would be contributing to this presentation given date of last dose. 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 Needs: Lives alone, ?medication/compliance Risk Factors Assessment Male: No : Yes Do You Have Access To A Gun?: No Health Problems: Yes Mental Health Diagnoses: Yes Previous Attempt: Yes Previous Attempt; Highly Lethal: No Previous Attempt; Planned: Yes Previous Attempt; Didn't Tell Anyone: No Family History of Suicide: No Previous Psychiatric Hospitalization: Yes Hopelessness: No Smoker: Yes Protective Factors Assessment Buddhism Beliefs: Yes : No Responsible for Young Children: No Employed: Yes Stable Relationships: No Supportive Family: Yes Good Rapport with Provider: Yes Absence of Any Risk Factors Above: No Interval History Chief Complaint ongoing mental status change Review of Systems Notes sedation, otherwise unable to complete Subjective Subjective Patient was seen & assessed and interval progress reviewed with liaison nurse. Initial consult by Drs. May/Arnol. Patient is able to awaken briefly to converse today. Records received from [facility] were for 2017, office now closed. corporate real estate manager Samantha Lovett worked with staff yesterday to confirm last date of Abilify maintenna shot as early February. EEG pending as trying to limit benzos. Patient self administers meds at home (own apartment) following period of homelessness then stability at [facility]. High dose Klonopin 1 mg TID held on admission, unclear status of remaining rx. States she was taking it regularly up to hospitalization. BP and P has been trending upward. Physical Exam Mental Examination limited, awakened to name, oriented to place, slow speech, slurred, thought processes disorganized, denies miller. Denies SI but then back to sleep. Vital Signs (Past 24 Hours) Last Vital Signs Temp 36.8 C 04/27/19 11:06 Pulse 89 04/27/19 11:06 Resp 20 04/27/19 11:06 BP 149/83 H 04/27/19 11:06 Pulse Ox 98 04/27/19 11:06 Results & Data Laboratory Results Laboratory Results - last 24 hr 04/26/19 04/26/19 04/26/19 12:07 14:43 14:43 WBC RBC Hgb Hct MCV MCH MCHC RDW Std Deviation RDW Coeff of Jim Plt Count MPV Immature Gran % (Auto) Neut % (Auto) Lymph % (Auto) Kimble % (Auto) Eos % (Auto) Baso % (Auto) Immature Gran # (Auto) Neut # (Auto) Lymph # (Auto) Kimble # (Auto) Eos # (Auto) Baso # (Auto) Absolute Nucleated RBC Nucleated RBC % (auto) Neutrophils % (Manual) Band Neutrophils % Lymphocytes % (Manual) Prolymphocyte % Reactive Lymphs % (Man) Monocytes % (Manual) Eosinophils % (Manual) Basophils % (Manual) Metamyelocytes % (Man) Myelocytes % (Man) Promyelocytes % (Man) Blast Cells % (Manual) Plasma Cell % (Manual) Other Cells % Nucleated RBC % Neutrophils # (Manual) Band Neutrophils # Total Absolute Neuts Lymphocytes # (Manual) Prolymphocyte # Reactive Lymphs # Total Abs Lymphocytes Monocytes # (Manual) Eosinophils # (Manual) Basophils # (Manual) Metamyelocytes # (Man) Myelocytes # (Manual) Promyelocytes # (Man) Blast Cells # (Man) Plasma Cell # (Manual) Other Cells # Nucleated RBCs # (Man) Hypersegmented Neuts Hyposegmented Neuts Hypogranular Neuts Large Granular Lymphs # Lrg Granular Lymphs Hairy Cells Smudge Cells Toxic Granulation Toxic Vacuolation Dohle Bodies Lissy Rods Platelet Estimate Hypogranular Platelets Clumped Platelets Giant Platelets Platelet Satelliting RBC Morphology Polychromasia Hypochromasia Poikilocytosis Basophilic Stippling Anisocytosis Microcytosis Macrocytosis Spherocytes Pappenheimer Bodies Sickle Cells Target Cells Tear Drop Cells Ovalocytes Stomatocytes [place] Bodies Echinocytes Acanthocytes (Spur) Rouleaux RBC Agglutinates Schistocytes RBC Morph Comment Sezary Cell ABG pH ABG pCO2 ABG pO2 ABG HCO3 ABG O2 Saturation ABG Base Excess Wilman Test Barometric Pressure Oxygen Given Sodium 145 Potassium 3.5 Chloride 114 H Carbon Dioxide 24 Anion Gap 7.0 BUN 15 Creatinine 0.64 D Est Cr Clr Drug Dosing 118.1 Est GFR ( Amer) 116.4 Est GFR (Non-Af Amer) 100.5 BUN/Creatinine Ratio 23.5 H Glucose 175 H POC Glucose 168 H Osmolality 306 H Calcium 8.7 Ammonia C-Reactive Protein 04/26/19 04/26/19 04/26/19 14:43 15:58 18:51 WBC RBC Hgb Hct MCV MCH MCHC RDW Std Deviation RDW Coeff of Jim Plt Count MPV Immature Gran % (Auto) Neut % (Auto) Lymph % (Auto) Kimble % (Auto) Eos % (Auto) Baso % (Auto) Immature Gran # (Auto) Neut # (Auto) Lymph # (Auto) Kimble # (Auto) Eos # (Auto) Baso # (Auto) Absolute Nucleated RBC Nucleated RBC % (auto) Neutrophils % (Manual) Band Neutrophils % Lymphocytes % (Manual) Prolymphocyte % Reactive Lymphs % (Man) Monocytes % (Manual) Eosinophils % (Manual) Basophils % (Manual) Metamyelocytes % (Man) Myelocytes % (Man) Promyelocytes % (Man) Blast Cells % (Manual) Plasma Cell % (Manual) Other Cells % Nucleated RBC % Neutrophils # (Manual) Band Neutrophils # Total Absolute Neuts Lymphocytes # (Manual) Prolymphocyte # Reactive Lymphs # Total Abs Lymphocytes Monocytes # (Manual) Eosinophils # (Manual) Basophils # (Manual) Metamyelocytes # (Man) Myelocytes # (Manual) Promyelocytes # (Man) Blast Cells # (Man) Plasma Cell # (Manual) Other Cells # Nucleated RBCs # (Man) Hypersegmented Neuts Hyposegmented Neuts Hypogranular Neuts Large Granular Lymphs # Lrg Granular Lymphs Hairy Cells Smudge Cells Toxic Granulation Toxic Vacuolation Dohle Bodies Lissy Rods Platelet Estimate Hypogranular Platelets Clumped Platelets Giant Platelets Platelet Satelliting RBC Morphology Polychromasia Hypochromasia Poikilocytosis Basophilic Stippling Anisocytosis Microcytosis Macrocytosis Spherocytes Pappenheimer Bodies Sickle Cells Target Cells Tear Drop Cells Ovalocytes Stomatocytes [place] Bodies Echinocytes Acanthocytes (Spur) Rouleaux RBC Agglutinates Schistocytes RBC Morph Comment Sezary Cell ABG pH 7.39 ABG pCO2 37 ABG pO2 57 L ABG HCO3 22 ABG O2 Saturation 89.8 L ABG Base Excess -2.5 Wilman Test POS Barometric Pressure 727.7 Oxygen Given ROOM AIR Sodium Potassium Chloride Carbon Dioxide Anion Gap BUN Creatinine Est Cr Clr Drug Dosing Est GFR ( Amer) Est GFR (Non-Af Amer) BUN/Creatinine Ratio Glucose POC Glucose 165 H Osmolality Calcium Ammonia C-Reactive Protein 0.69 H 04/26/19 04/27/19 04/27/19 23:42 05:49 07:04 WBC Cancelled RBC Cancelled Hgb Cancelled Hct Cancelled MCV Cancelled MCH Cancelled MCHC Cancelled RDW Std Deviation Cancelled RDW Coeff of Jim Cancelled Plt Count Cancelled MPV Cancelled Immature Gran % (Auto) Cancelled Neut % (Auto) Cancelled Lymph % (Auto) Cancelled Kimble % (Auto) Cancelled Eos % (Auto) Cancelled Baso % (Auto) Cancelled Immature Gran # (Auto) Cancelled Neut # (Auto) Cancelled Lymph # (Auto) Cancelled Kimble # (Auto) Cancelled Eos # (Auto) Cancelled Baso # (Auto) Cancelled Absolute Nucleated RBC Cancelled Nucleated RBC % (auto) Cancelled Neutrophils % (Manual) Cancelled Band Neutrophils % Cancelled Lymphocytes % (Manual) Cancelled Prolymphocyte % Cancelled Reactive Lymphs % (Man) Cancelled Monocytes % (Manual) Cancelled Eosinophils % (Manual) Cancelled Basophils % (Manual) Cancelled Metamyelocytes % (Man) Cancelled Myelocytes % (Man) Cancelled Promyelocytes % (Man) Cancelled Blast Cells % (Manual) Cancelled Plasma Cell % (Manual) Cancelled Other Cells % Cancelled Nucleated RBC % Cancelled Neutrophils # (Manual) Cancelled Band Neutrophils # Cancelled Total Absolute Neuts Cancelled Lymphocytes # (Manual) Cancelled Prolymphocyte # Cancelled Reactive Lymphs # Cancelled Total Abs Lymphocytes Cancelled Monocytes # (Manual) Cancelled Eosinophils # (Manual) Cancelled Basophils # (Manual) Cancelled Metamyelocytes # (Man) Cancelled Myelocytes # (Manual) Cancelled Promyelocytes # (Man) Cancelled Blast Cells # (Man) Cancelled Plasma Cell # (Manual) Cancelled Other Cells # Cancelled Nucleated RBCs # (Man) Cancelled Hypersegmented Neuts Cancelled Hyposegmented Neuts Cancelled Hypogranular Neuts Cancelled Large Granular Lymphs Cancelled # Lrg Granular Lymphs Cancelled Hairy Cells Cancelled Smudge Cells Cancelled Toxic Granulation Cancelled Toxic Vacuolation Cancelled Dohle Bodies Cancelled Lissy Rods Cancelled Platelet Estimate Cancelled Hypogranular Platelets Cancelled Clumped Platelets Cancelled Giant Platelets Cancelled Platelet Satelliting Cancelled RBC Morphology Cancelled Polychromasia Cancelled Hypochromasia Cancelled Poikilocytosis Cancelled Basophilic Stippling Cancelled Anisocytosis Cancelled Microcytosis Cancelled Macrocytosis Cancelled Spherocytes Cancelled Pappenheimer Bodies Cancelled Sickle Cells Cancelled Target Cells Cancelled Tear Drop Cells Cancelled Ovalocytes Cancelled Stomatocytes Cancelled [place] Bodies Cancelled Echinocytes Cancelled Acanthocytes (Spur) Cancelled Rouleaux Cancelled RBC Agglutinates Cancelled Schistocytes Cancelled RBC Morph Comment Cancelled Sezary Cell Cancelled ABG pH ABG pCO2 ABG pO2 ABG HCO3 ABG O2 Saturation ABG Base Excess Wilman Test Barometric Pressure Oxygen Given Sodium Potassium Chloride Carbon Dioxide Anion Gap BUN Creatinine Est Cr Clr Drug Dosing Est GFR ( Amer) Est GFR (Non-Af Amer) BUN/Creatinine Ratio Glucose POC Glucose 146 H 141 H Osmolality Calcium Ammonia C-Reactive Protein 04/27/19 04/27/19 04/27/19 07:14 07:14 08:01 WBC 7.80 RBC 4.15 L Hgb 12.6 D Hct 35.9 L MCV 86.5 MCH 30.4 MCHC 35.1 RDW Std Deviation 44.7 RDW Coeff of Jim 14.2 Plt Count 222 MPV 11.0 H Immature Gran % (Auto) 0.3 Neut % (Auto) 59.4 Lymph % (Auto) 31.9 Kimble % (Auto) 6.2 Eos % (Auto) 1.7 Baso % (Auto) 0.5 Immature Gran # (Auto) 0.02 Neut # (Auto) 4.64 Lymph # (Auto) 2.49 Kimble # (Auto) 0.48 Eos # (Auto) 0.13 Baso # (Auto) 0.04 Absolute Nucleated RBC Nucleated RBC % (auto) Neutrophils % (Manual) Band Neutrophils % Lymphocytes % (Manual) Prolymphocyte % Reactive Lymphs % (Man) Monocytes % (Manual) Eosinophils % (Manual) Basophils % (Manual) Metamyelocytes % (Man) Myelocytes % (Man) Promyelocytes % (Man) Blast Cells % (Manual) Plasma Cell % (Manual) Other Cells % Nucleated RBC % Neutrophils # (Manual) Band Neutrophils # Total Absolute Neuts Lymphocytes # (Manual) Prolymphocyte # Reactive Lymphs # Total Abs Lymphocytes Monocytes # (Manual) Eosinophils # (Manual) Basophils # (Manual) Metamyelocytes # (Man) Myelocytes # (Manual) Promyelocytes # (Man) Blast Cells # (Man) Plasma Cell # (Manual) Other Cells # Nucleated RBCs # (Man) Hypersegmented Neuts Hyposegmented Neuts Hypogranular Neuts Large Granular Lymphs # Lrg Granular Lymphs Hairy Cells Smudge Cells Toxic Granulation Toxic Vacuolation Dohle Bodies Lissy Rods Platelet Estimate Hypogranular Platelets Clumped Platelets Giant Platelets Platelet Satelliting RBC Morphology Polychromasia Hypochromasia Poikilocytosis Basophilic Stippling Anisocytosis Microcytosis Macrocytosis Spherocytes Pappenheimer Bodies Sickle Cells Target Cells Tear Drop Cells Ovalocytes Stomatocytes [place] Bodies Echinocytes Acanthocytes (Spur) Rouleaux RBC Agglutinates Schistocytes RBC Morph Comment Sezary Cell ABG pH ABG pCO2 ABG pO2 ABG HCO3 ABG O2 Saturation ABG Base Excess Wilman Test Barometric Pressure Oxygen Given Sodium 145 Potassium TNP Chloride 114 H Carbon Dioxide 23 Anion Gap 8.0 BUN 10 D Creatinine 0.49 L Est Cr Clr Drug Dosing 154.2 Est GFR ( Amer) 127.1 Est GFR (Non-Af Amer) 109.7 BUN/Creatinine Ratio 19.3 Glucose 135 H POC Glucose Osmolality Calcium 8.8 Ammonia C-Reactive Protein 04/27/19 04/27/19 04/27/19 08:01 08:01 11:20 WBC RBC Hgb Hct MCV MCH MCHC RDW Std Deviation RDW Coeff of Jim Plt Count MPV Immature Gran % (Auto) Neut % (Auto) Lymph % (Auto) Kimble % (Auto) Eos % (Auto) Baso % (Auto) Immature Gran # (Auto) Neut # (Auto) Lymph # (Auto) Kimble # (Auto) Eos # (Auto) Baso # (Auto) Absolute Nucleated RBC Nucleated RBC % (auto) Neutrophils % (Manual) Band Neutrophils % Lymphocytes % (Manual) Prolymphocyte % Reactive Lymphs % (Man) Monocytes % (Manual) Eosinophils % (Manual) Basophils % (Manual) Metamyelocytes % (Man) Myelocytes % (Man) Promyelocytes % (Man) Blast Cells % (Manual) Plasma Cell % (Manual) Other Cells % Nucleated RBC % Neutrophils # (Manual) Band Neutrophils # Total Absolute Neuts Lymphocytes # (Manual) Prolymphocyte # Reactive Lymphs # Total Abs Lymphocytes Monocytes # (Manual) Eosinophils # (Manual) Basophils # (Manual) Metamyelocytes # (Man) Myelocytes # (Manual) Promyelocytes # (Man) Blast Cells # (Man) Plasma Cell # (Manual) Other Cells # Nucleated RBCs # (Man) Hypersegmented Neuts Hyposegmented Neuts Hypogranular Neuts Large Granular Lymphs # Lrg Granular Lymphs Hairy Cells Smudge Cells Toxic Granulation Toxic Vacuolation Dohle Bodies Lissy Rods Platelet Estimate Hypogranular Platelets Clumped Platelets Giant Platelets Platelet Satelliting RBC Morphology Polychromasia Hypochromasia Poikilocytosis Basophilic Stippling Anisocytosis Microcytosis Macrocytosis Spherocytes Pappenheimer Bodies Sickle Cells Target Cells Tear Drop Cells Ovalocytes Stomatocytes [place] Bodies Echinocytes Acanthocytes (Spur) Rouleaux RBC Agglutinates Schistocytes RBC Morph Comment Sezary Cell ABG pH ABG pCO2 ABG pO2 ABG HCO3 ABG O2 Saturation ABG Base Excess Wilman Test Barometric Pressure Oxygen Given Sodium Potassium 3.4 L Chloride Carbon Dioxide Anion Gap BUN Creatinine Est Cr Clr Drug Dosing Est GFR ( Amer) Est GFR (Non-Af Amer) BUN/Creatinine Ratio Glucose POC Glucose 134 H Osmolality Calcium Ammonia 26.5 C-Reactive Protein Current Inpatient Medications Current Inpatient Medications: Current Inpatient Medications Dextrose (Dextrose 50%) 25 - 50 ml IV UD PRN; Protocol PRN Reason: Hypoglycemia Protocol Stop: 05/25/19 18:44 Divalproex Sodium (Depakote Delay Release) 500 mg PO BID KINGSLEY Stop: 05/27/19 10:44 Last Admin: 04/27/19 11:46 Dose: 500 mg Documented by: Enoxaparin Sodium (Lovenox) 40 mg SQ Q24H KINGSLEY Stop: 05/25/19 20:59 Last Admin: 04/26/19 19:29 Dose: 40 mg Documented by: Glucagon (Glucagen) 1 mg IM UD PRN; Protocol PRN Reason: Hypoglycemia Protocol Stop: 05/25/19 18:44 Glucose (Glucose 40%) 15 - 30 gm PO UD PRN; Protocol PRN Reason: Hypoglycemia Protocol Stop: 05/25/19 18:44 Glucose (Dex4 Glucose) 4 - 8 tabs PO UD PRN; Protocol PRN Reason: Hypoglycemia Protocol Stop: 05/25/19 18:44 Sodium Chloride (Nss 1000ml) 1,000 mls @ 100 mls/hr IV .Q10H KINGSLEY Stop: 05/25/19 18:26 Last Admin: 04/27/19 10:51 Dose: 100 mls/hr Documented by: Lorazepam (Ativan) 1 mg in 2 mls @ 2 mls/min IV Q1H PRN PRN Reason: Notification Stop: 05/25/19 18:26 Last Admin: 04/27/19 04:22 Dose: 2 mls/min Documented by: Insulin Aspart (Novolog Flexpen) 0 units SC Q6 KINGSLEY Stop: 05/26/19 00:00 Last Admin: 04/27/19 05:55 Dose: Not Given Documented by: Miscellaneous (Carbohydrates For Hypoglycemia) 15 - 30 gm PO UD PRN PRN Reason: Hypoglycemia Treatment Stop: 05/25/19 18:44 Ondansetron HCl (Zofran) 4 mg IV Q6H PRN PRN Reason: Nausea Stop: 05/25/19 18:26 CPT Code CPT Code 57103
[2019-04-27] MEDS ORDERED: Nursing to Pharmacy Communication ONE (12:31)
[2019-04-27] MEDS ORDERED: clonazePAM 1 MG TAB PO STA (13:34)
--- NOTE | 2019-04-27 14:57 | Family Medicine Progress Note ---
Date of Service April 27, 2019 Assessment & Plan (1) Schizoaffective disorder: Ama is a 54-year-old female with a past medical history of bipolar disorder and recent concern for seizures. She has been admitted for acute altered mental status and incontinence. Altered mental status, unclear etiology - Differential includes infection, toxic ingestion, serotonin syndrome, seizure, primary psychiatric - She is clinically improving, and although she is still altered she is able to answer questions and maintain concentration for 10-20 seconds this morning. She has a history of scitzoaffective disorder controlled with Abilify IM last dose 02/26/2019. She had altered mental status for 1 day RIG WELDER with some bladder incontinence, no other seizure activity was noted by her caregivers. Case was discussed with her case folder this morning. In addition to the laryngospasm like episode she has been having she has had 2 episodes of observed seizure activity during which she fell to the ground, was not conscious, and was incontinent. Given the history of seizure activity observed by a health sales team leader, it was recommended that rather than repeat EEG she be started on Keppra at this time. Discussed with neuro Urinalysis showed glucose, protein, ketones but without LE or bacteria. Urine culture negative. Urine toxicology was negative for opioids, barbiturates, PCP, amphetamines, benzodiazepines, MDMA, cocaine, and THC Prior to admission Ama has prescriptions for clonazepam, levothyroxine, metformin, promethazine, and propanolol. There was initial concern for a benzodiazepine overdose causing her altered mental status, but her U tox was negative as above. Alcohol level was undetectable. Acetaminophen negative, salicylate 3.0 (low end of normal). Ammonia negative. EKG shows normal sinus tachycardia No hypoglycemia on admission Recommend proceeding with inpatient EEG at this time. Her glucose appears to be well controlled and she is on metformin monotherapy. Ketonuria likely starvation ketosis. No increased osmolar gap. - Serotonin syndrome unlikely as she has not had related medications in ~8 weeks and was sedated vs agitated, although hyperreflexia was initially concerning. - Neurology consulted. -[id number]- -[id number]- -[id number]- -[id number]- - - Scitzoaffective Disorder She has a history of schizoaffective disorder which has been reportedly well controlled with Abilify. She currently lives in her own apartment via government [employer] for disability housing. She is followed by Steve [facility] in the [facility], was previously seen by Dr. Nelson. Receives Abilify 400 mg IM once monthly with additional clonazepam 1 mg up to 3 times daily as needed. Last dose of Abilify unclear, appears to have been March 26 but a new prescription was ordered April 05. She was using clonazepam 1mg TID daily for a long time RIG WELDER. She was benzo negative on utox, but this can give a false negative for clonazepam so toxidrome is not excluded. - Given her prior use will restart clonazepam 1mg BID PRN and observe for signs of withdrawal. - Will not hold benzodiazepines at this time for EEG per neurology who recommended starting her on Keppra given history. - Psychiatry consulted.Appreciate recommendations. Type 2 diabetes mellitus on metformin monotherapy, last A1C = 6.7 Currently n.p.o., metformin held SSI aspart as needed Hypothyroidism TSH within normal limits Continue RIG WELDER levothyroxine 75 mcg daily Hypertension RIG WELDER propranolol 80 mg daily DVT PPx: Enoxaparin 40 mg subcutaneously daily Code Status: Have not discussed with pt due to AMS, Full Code (2) Seizure-like activity: (3) DVT prophylaxis: Supervising Physician Co-Signing Physician Notes I personally examined the patient and verified all doan points of history and exam, discussed case, and agree with decision making with Dr Le. Mental status much improved. She is still appearing somewhat somnolent and slow to respond, but is sitting up in bed eating somewhat whenever we come into the room. She denies any pain or complaints, other than that her throat is sore from the spasms, but she does not seem to have any other symptoms associated with it. Vitals noted, in general she is awake and responds as above, no distress. HEENT normocephalic atraumatic mucous membranes moist. Oropharynx without erythema. Breathing is unlabored no accessory muscle use good effort. Skin shows no rashes no pallor or icterus. Neuro shows cranial nerves II through XII be grossly intact gross motor and sensory are equal and intact as best can be assessed Altered mental statusseems to be improving. Continue supportive care. Working diagnoses as outlined by Dr. Baresel above. SeizureKeppra for now, will want to coordinate with neurology and psych as to if there would be any benefit from other anticonvulsants that have a degree of a role in psychiatric treatment. Laryngospasmseems to be improving somewhat, certainly has no airway issues with this, may be a form of extrapyramidal symptoms for which Artane could be helpful, but given that its improving, and the rest of her clinical situation is improving, we will hold off on adding extra medications at this time. DVT proph - lovenox Otherwise as above Jose Stevenson was seen at bedside this morning. Her mental status is improving, but still limited. She denies pain but expresses that she feels "terrible". She endorses that her throat hurts. Denies other pain. Endorses anxiety. Review of Systems Review of Systems: Unreliable due to cognitive status. Constitutional: Denies fever, chills, Eyes: Denies double vision, vision change, ENT: Denies ear pain, sinus pain. Endorses sore throat. Cardiovascular: Denies Chest pain, chest pressure, palpitations, Respiratory: Denies shortness of breath, sputum production. Endorses cough. Gastrointestinal: Denies abdominal pain, nausea, vomiting Genitourinary: Denies pain with urination, urinary urgency Musculoskeletal: Denies muscle aches/pain, joint aches/pain. Endorses weakness. Integumentary:Denies rash, lesions, bruising Neurological: Denies headache, numbness, tingling, focal weakness Physical Exam Physical Exam: General: Opens eyes spontaneously to voice, follows one step but not two step commands today. Answers questions appropriately, but maintains concentration for less than 10-20 seconds before falling asleep. HEENT: Atraumatic, normocephalic. Pupils equal and reactive to light bilaterally. Pulm: CTAB A&P. -wheezes, -rales, -rhonchi. Symmetrical chest rise. No increase work of breathing. No respiratory distress. Cardiac: RRR, -mrg. Radial pulses intact and symmetrical. Posterior tibial pulses intact and symmetrical. No JVD. Abdominal: Nontender, nondistended, soft. BS present. Results & Data Vital Signs (Past 12 Hours) Vital Signs Temp Pulse Pulse Resp BP BP Pulse Ox 04/27/19 11:06 36.8 C 89 20 149/83 H 98 04/27/19 08:00 67 04/27/19 07:35 37.1 C 95 H 22 150/87 H 96 04/27/19 03:31 37.1 C 95 H 18 108/74 98
[2019-04-27] MEDS ORDERED: INSULIN ASPART 100 UNITS/ML 3 ML PEN SC SCH (16:30)
[2019-04-27] MEDS: ACETAMINOPHEN 325 MG TAB PO PRN (17:47)
--- NOTE | 2019-04-27 18:11 | Family Medicine Progress Note ---
Date of Service April 27, 2019 Subjective Please see separate documentation from the same date for actual clinical information. Today the EMR was changed to allow for in-EMR coding entry, and unfortunately residency documentation was on the older notes. This note was generated simply to allow entry of the proper codes, but the separate note/same date contains the actual clinical information. This should be a one-time issue, and I apologize for any confusion. Results & Data Vital Signs (Past 12 Hours) Vital Signs Temp Pulse Pulse Resp BP BP Pulse Ox 04/27/19 15:44 36.9 C 86 22 146/82 H 97 04/27/19 15:03 102 H 04/27/19 11:06 36.8 C 89 20 149/83 H 98 04/27/19 08:00 67 04/27/19 07:35 37.1 C 95 H 22 150/87 H 96
[2019-04-27] MEDS: ENOXAPARIN INJ 40 MG/0.4 ML SYR SQ SCH (20:36)
[2019-04-28] MEDS: clonazePAM 1 MG TAB PO PRN ×2 (01:01→10:16)
[2019-04-28] MEDS: SODIUM CHLORIDE 0.9% 1000ML 1,000 ML IV SCH (06:24)
[2019-04-28 06:49] LABS: BUN Creatinine Ratio 9.1 (10-20); Calcium 8.3 mg/dl (8.5-10.1); Creatinine Clr Calc Pharmacy 131.8 ml/min; Est GFR (African American) 122.4; Est GFR (Non-African American) 105.6; Potassium 3.1 mmol/L (3.5-5.1)
[2019-04-28] MEDS: INSULIN ASPART 100 UNITS/ML 3 ML PEN SC SCH ×4 (08:25→21:26)
[2019-04-28] MEDS: DIVALPROEX DELAY RELEASE 500 MG TAB PO SCH ×2 (08:25→19:34)
[2019-04-28] MEDS ORDERED: MAGNESIUM OXIDE 400 MG TAB PO ONE (08:42)
[2019-04-28] MEDS: POTASSIUM CHLORIDE 10 MEQ TABCR PO SCH ×3 (10:10→17:22)
--- NOTE | 2019-04-28 11:22 | Family Medicine Progress Note ---
Date of Service April 28, 2019 Assessment & Plan (1) Schizoaffective disorder: Ama is a 54-year-old female with a past medical history of bipolar disorder and recent concern for seizures. She has been admitted for acute altered mental status and incontinence. Altered mental status, unclear etiology - Differential includes infection, toxic ingestion, serotonin syndrome, seizure, primary psychiatric - She continues to clinically improve, answers questions appropriately and is able to remain awake and with decent concentration. No A/V hallucinations. She has a history of scitzoaffective disorder controlled with Abilify IM last dose 02/26/2019. 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 Case was discussed with her case operator this morning. In addition to the laryngospasm like episode she has been having she has had 2 episodes of observed seizure activity during which she fell to the ground, was not conscious, and was incontinent. Given the history of seizure activity observed by a health steam press operator, it was recommended that rather than repeat EEG she be started on Keppra at this time. Discussed with neuro. Question the effect of her prior anti psychotic regimen on lowering her seizure threshold. Urinalysis showed glucose, protein, ketones but without LE or bacteria. Urine culture negative. Urine toxicology was negative for opioids, barbiturates, PCP, amphetamines, benzodiazepines, MDMA, cocaine, and THC Prior to admission Ama has prescriptions for clonazepam, levothyroxine, metformin, promethazine, and propranolol. There was initial concern for a benzodiazepine overdose causing her altered mental status, but her U tox was negative as above. Alcohol level was undetectable. Acetaminophen negative, salicylate 3.0 (low end of normal). Ammonia negative. EKG shows normal sinus tachycardia No hypoglycemia on admission Her glucose appears to be well controlled and she is on metformin monotherapy. Ketonuria likely starvation ketosis. No increased osmolar gap. - Serotonin syndrome unlikely as she has not had related medications in ~8 weeks and was sedated vs agitated, although hyperreflexia was initially concerning. Continue to follow clinically Scitzoaffective Disorder She has a history of schizoaffective disorder which has been reportedly well controlled with Abilify. She currently lives in her own apartment via government [place] for disability housing. She is followed by Steve Ace in the [place] program, was previously seen by Dr. Nelson. Receives Abilify 400 mg IM once monthly with additional clonazepam 1 mg up to 3 times daily as needed. Last dose of Abilify unclear, appears to have been March 26 but a new prescription was ordered April 05. 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 She was benzo negative on utox, but this can give a false negative for clonazepam so toxidrome is not excluded. - Given her prior use will restart clonazepam 1mg BID PRN and observe for signs of withdrawal. - Will not hold benzodiazepines at this time for EEG per neurology who recommended starting her on Keppra given history. - Psychiatry consulted.Appreciate recommendations. Given that she has high risk for akasthesia and dyskinesia given that she has had an episode of severe EPS reaction to Haldol in the past, her laryngospasm- like phenomenon may be a subtle manifestation of dyskinesia. Her home propanolol continues to be held in the setting of bradycardia, will try Cogentin today. Expect 24-48 hours to see clinical benefit if effective. Type 2 diabetes mellitus on metformin monotherapy, last A1C = 6.7 Currently n.p.o., metformin held SSI aspart as needed Hypothyroidism TSH within normal limits Continue LEAD SUSTAINABILITY SPECIALIST levothyroxine 75 mcg daily Hypertension Held LEAD SUSTAINABILITY SPECIALIST propranolol 80 mg daily 2/2 daphne Social: Her son Ronaldo can be reached at [phone] if needed. He works in the restaurant industry and is generally available before 11 AM or after 2 PM. CODE STATUS: Full code (2) Seizure-like activity: (3) DVT prophylaxis: (4) Altered mental status: Supervising Physician Co-Signing Physician Notes I personally examined the patient and verified all doan points of history and exam, discussed case, and agree with decision making with Dr Le. Standing in the doorway of the walker as nursing is starting to get her to walk. Appears very steady on her feet. Complains of bilateral thigh pain. Notes that her larynx issues are still ongoing although may be slightly improved. Still certainly bothersome. She expresses appreciation for the care. Vitals noted, in general she is awake and interactive. Still a little slow to respond but no distress. HEENT normocephalic atraumatic mucous members moist. Breathing unlabored no accessory muscle use good effort. Skin shows no rashes no pallor or icterus. Neuro shows cranial nerves II through XII be grossly i ntact gross motor and sensory intact. Altered mental statusongoing improvement, continue supportive care. Ongoing psychiatric meds per psychiatry. Seizurecontinue David for now, will want to coordinate with neurology and psych as to if there would be any benefit from other anticonvulsants that have a degree of a role in psychiatric treatment. Laryngospasmseems to be improving somewhat, but is still bothering her significantly. Okay to give trial of Cogentin follow closely. Bilateral leg painmore than likely stiffness from seizures and immobility otherwise, but given that it persists after she is even had a walk, check venous Dopplers given how immobile she was early in her hospital stay. DVT proph - lovenox Otherwise as above Subjective Kane reports she feels a little bit anxious, but better today. She is not short of breath, has no chest pain, no chest pressure, and no headache. She continues to have a repeated spasm-like cough. No tremors. No fevers, chills, sweats overnight. She is more alert and was able to tolerate breakfast okay today. Review of Systems Review of Systems: Unreliable due to cognitive status. Constitutional: Denies fever, chills, Eyes: Denies double vision, vision change, ENT: Denies ear pain, sinus pain. Endorses spasm-like cough with sore throat. Cardiovascular: Denies Chest pain, chest pressure, palpitations, Respiratory: Denies shortness of breath, sputum production. Endorses cough. Gastrointestinal: Denies abdominal pain, nausea, vomiting Genitourinary: Denies pain with urination, urinary urgency Musculoskeletal: Denies muscle aches/pain, joint aches/pain. Endorses weakness. Integumentary:Denies rash, lesions, bruising Neurological: Denies headache, numbness, tingling, focal weakness, tremors. Endorses anxiety. Physical Exam Physical Exam: General: Somnolent, but arouses to voice and is able to maintain concentration and answer questions appropriately today. Able to follow two-step commands. Flat affect. HEENT: Atraumatic, normocephalic. Pupils equal and reactive to light bilaterally. Pulm: CTAB A&P. -wheezes, -rales, -rhonchi. Symmetrical chest rise. No increase work of breathing. No respiratory distress. Cardiac: RRR, -mrg. Radial pulses intact and symmetrical. Posterior tibial pulses intact and symmetrical. No JVD. Abdominal: Nontender, nondistended, soft. BS present. Results & Data Vital Signs (Past 12 Hours) Vital Signs Temp Pulse Pulse Resp BP Pulse Ox 04/28/19 08:00 57 L 04/28/19 07:26 36.9 C 90 24 119/83 99 04/28/19 03:46 36.4 C L 61 21 103/65 97 04/28/19 00:01 65 Resident Activity Tracking Resident Involvement: Resident Care Provided Care Provided: Adult Hospital Medicine (1) Altered mental status Altered mental status type: unspecified Qualified Code(s): R41.82 - Altered mental status, unspecified
[2019-04-28] MEDS ORDERED: BENZTROPINE MESYLATE 1 MG TAB PO STA (12:09)
[2019-04-28] MEDS: ACETAMINOPHEN 325 MG TAB PO PRN ×2 (13:52→19:34)
[2019-04-28] MEDS: ENOXAPARIN INJ 40 MG/0.4 ML SYR SQ SCH (19:34)
[2019-04-28] MEDS: BENZTROPINE MESYLATE 1 MG TAB PO SCH (19:34)
[2019-04-29] MEDS: clonazePAM 1 MG TAB PO PRN ×2 (00:18→15:21)
--- NOTE | 2019-04-29 06:57 | Ultrasound Report ---
BILATERAL LOWER EXTREMITY VENOUS DOPPLER CLINICAL HISTORY: persistent calf pain, ?DVT COMPARISON STUDY: No previous studies for comparison. TECHNIQUE: Sonography of the deep venous system of the bilateral lower extremities was performed. Co mpression and augmentation were evaluated. FINDINGS: The bilateral common femoral, superficial femoral and popliteal veins were compressible. A ugmentation was normal. Flow was shown within the deep calf vessels. IMPRESSION: No evidence of deep venous thrombus within the bilateral lower extremities. Electronically signed by: Ronaldo Nichols M.D. 04/29/2019 6:56 AM
[2019-04-29 07:10] LABS: BUN Creatinine Ratio 6.4 (10-20); Calcium 8.6 mg/dl (8.5-10.1); Creatinine Clr Calc Pharmacy 116.6 ml/min; Potassium 3.1 mmol/L (3.5-5.1)
[2019-04-29] MEDS ORDERED: POTASSIUM CHLORIDE 20 MEQ TABCR PO STA (07:38)
[2019-04-29] MEDS: DIVALPROEX DELAY RELEASE 500 MG TAB PO SCH ×2 (08:02→20:11)
[2019-04-29] MEDS: INSULIN ASPART 100 UNITS/ML 3 ML PEN SC SCH ×4 (08:02→20:11)
[2019-04-29] MEDS: ACETAMINOPHEN 325 MG TAB PO PRN (14:14)
--- NOTE | 2019-04-29 15:41 | Psychiatric Progress Note ---
Date of Service April 29, 2019 Impression / Recommendations Impression Case reviewed with attending physician prior to assessment by this provider. Discharge planning was discussed. Information gathered from [facility] suggests that patient has been receiving Abilify Maintena 400mg without known incident since 11/2016. Pt did admit to missing scheduled office visit and injection at [facility] due to this hospitalization. Pt is agreeable to receiving Abilify Maintena here at the hospital prior to discharge. Currently, we were able to schedule an appointment with Katina Ace PA-C at [facility] on 04/30/19 at 1300. Would suggest continuing reduced dosing of clonazepam until evaluated by psychiatric prescriber, given concern for possible medication misuse and potential to further perpetuate confusion and sedation. This was discussed with patient during evaluation, who was agreeable with explanation provided. Case was reviewed with patient's attending physician prior to discharge to coordinate plan. No indication for inpatient psychiatric treatment at this time. Please reach out with any further questions. Appreciate the opportunity to participate in the care of this patient. 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 Needs: Lives alone, ?medication/compliance Risk Factors Assessment Male: No : Yes Do You Have Access To A Gun?: No Health Problems: Yes Mental Health Diagnoses: Yes Substance Use Disorders: Yes Previous Attempt: Yes Previous Attempt; Highly Lethal: No Previous Attempt; Planned: Yes Previous Attempt; Didn't Tell Anyone: No Family History of Suicide: No Previous Psychiatric Hospitalization: Yes Hopelessness: No Smoker: Yes Protective Factors Assessment Temple Beliefs: Yes : No Responsible for Young Children: No Employed: Yes Stable Relationships: No Supportive Family: Yes Good Rapport with Provider: Yes Absence of Any Risk Factors Above: No Interval History Identifying Information 54-year-old female with probable schizoaffective disorder (previous diagnoses of schizophrenia- paranoid type, and bipolar I disorder have been given), anxiety, paranoid thoughts, DM and hypothyroid, who was admitted with altered mental status on 04/25/19. Chief Complaint "Oh, I think I'm feeling better. I'm just still not sure what happened." Review of Systems Notes Constitutional: reports fatigue Cardiovascular: denied Respiratory: denied Gastrointestinal: denied Neurological/Musculoskeletal: reports leg pain Psychiatric: denies symptoms other than stated above Total of at least 10 systems reviewed, pertinent positives as above and in HPI. Subjective Subjective Patient case was reviewed with psychiatric nurse liaison and patient's attending physician prior to assessment. Communication from primary team suggested a possibility of discharge this afternoon/evening and was requesting additional input on status of psychiatric medications and aftercare. Initial psychiatric consultation completed on 04/26/19, with follow-up visit on 04/27/19. Pt was seen today to assess progress since admission. Pt states she is doing well, and feeling a lot better. She admits that she has missed an appointment with her psychiatric prescriber at [facility] due to her current hospitalization. Pt tells this provider she has been taking Abilify Maintena without incident for "at least a year, if not more." She was willing to have her missed dose today, prior to discharge. Pt states she has not experienced side effects to the medication, as there was concern for EPS with previous trials of antipsychotic medications. Pt states she is feeling closer to baseline, and is hopeful for discharge soon. Pt was willing to sign an STEPHEN for [facility] in order to allow us to gather collateral information and schedule a follow-up appointment. Pt denies SI/HI, SIB, A/V hallucinations, and other specific psychiatric concerns. Psychiatric nurse liaison was able to confirm patient has been taking Abilify Maintena 400mg monthly since November of 2016. There were no known reactions reported previously. Pt could be scheduled for an appointment as soon as 04/30/19 at 1300. Physical Exam Psychiatric Orientation: alert, oriented x 3 and cooperative (and pleasant) Apperance: appropriately dressed (in hospital gown), + disheveled (somewhat) and appeared stated age Eye Contact: good eye contact Motor Behavior: steady gait and station (cautious ambulation with rolling walker) and no abnormal motor movements Speech: normal rate/rhythm/volume of speech Affect: + blunted affect (appearing fatigued rather than overtly depressed) Mood: no depressed mood and no anxious mood "pretty good overall" Thought Process: goal directed thought process and clear/coherent thought process Thought Content: reality based without delusions Suicidal Thoughts: denies suicidal thoughts and denies suicidal plan Homicidal Thoughts: denies homicidal thoughts Hallucinations: no auditory hallucinations and no visual hallucinations Cognition: remote memory grossly intact, attention grossly intact and language grossly intact Estimated Intelligence: consistent with education level Insight: + fair insight Judgement: + fair judgement Vital Signs (Past 24 Hours) Last Vital Signs Temp 37.1 C 04/29/19 12:03 Pulse 72 04/29/19 12:03 Resp 20 04/29/19 12:03 BP 135/71 04/29/19 12:03 Pulse Ox 99 04/29/19 12:03 Results & Data Laboratory Results Laboratory Results - last 24 hr 04/28/19 04/28/19 04/29/19 16:10 20:08 06:07 Sodium 144 Potassium 3.1 L Chloride 110 H Carbon Dioxide 27 Anion Gap 7.0 BUN 4 L Creatinine 0.63 Est Cr Clr Drug Dosing 116.6 Est GFR ( Amer) 117.0 Est GFR (Non-Af Amer) 101.0 BUN/Creatinine Ratio 6.4 L Glucose 167 H POC Glucose 153 H 201 H Calcium 8.6 04/29/19 04/29/19 07:21 11:43 Sodium Potassium Chloride Carbon Dioxide Anion Gap BUN Creatinine Est Cr Clr Drug Dosing Est GFR ( Amer) Est GFR (Non-Af Amer) BUN/Creatinine Ratio Glucose POC Glucose 175 H 145 H Calcium Current Inpatient Medications Current Inpatient Medications: Current Inpatient Medications Acetaminophen (Tylenol) 650 mg PO Q4H PRN PRN Reason: Fever/Mild Pain (Pain 1,2,3) Stop: 05/27/19 17:37 Last Admin: 04/29/19 14:14 Dose: 650 mg Documented by: Benztropine Mesylate (Cogentin) 1 mg PO HS [facility] Stop: 05/28/19 20:59 Last Admin: 04/28/19 19:34 Dose: 1 mg Documented by: Clonazepam (Klonopin) 1 mg PO BID PRN PRN Reason: Anxiety Stop: 05/27/19 13:33 Last Admin: 04/29/19 15:21 Dose: 1 mg Documented by: Dextrose (Dextrose 50%) 25 - 50 ml IV UD PRN; Protocol PRN Reason: Hypoglycemia Protocol Stop: 05/25/19 18:44 Divalproex Sodium (Depakote Delay Release) 500 mg PO BID [facility] Stop: 05/27/19 10:44 Last Admin: 04/29/19 08:02 Dose: 500 mg Documented by: Enoxaparin Sodium (Lovenox) 40 mg SQ Q24H [facility] Stop: 05/25/19 20:59 Last Admin: 04/28/19 19:34 Dose: 40 mg Documented by: Glucagon (Glucagen) 1 mg IM UD PRN; Protocol PRN Reason: Hypoglycemia Protocol Stop: 05/25/19 18:44 Glucose (Glucose 40%) 15 - 30 gm PO UD PRN; Protocol PRN Reason: Hypoglycemia Protocol Stop: 05/25/19 18:44 Glucose (Dex4 Glucose) 4 - 8 tabs PO UD PRN; Protocol PRN Reason: Hypoglycemia Protocol Stop: 05/25/19 18:44 Lorazepam (Ativan) 1 mg in 2 mls @ 2 mls/min IV Q1H PRN PRN Reason: Notification Stop: 05/25/19 18:26 Last Admin: 04/27/19 04:22 Dose: 2 mls/min Documented by: Insulin Aspart (Novolog Flexpen) 0 units SC ACHS [facility] Stop: 05/27/19 12:29 Last Admin: 04/29/19 12:49 Dose: 7 units Documented by: Miscellaneous (Carbohydrates For Hypoglycemia) 15 - 30 gm PO UD PRN PRN Reason: Hypoglycemia Treatment Stop: 05/25/19 18:44 Ondansetron HCl (Zofran) 4 mg IV Q6H PRN PRN Reason: Nausea Stop: 05/25/19 18:26 CPT Code CPT Code 57318
--- NOTE | 2019-04-29 16:06 | Family Medicine Progress Note ---
Date of Service April 29, 2019 Assessment & Plan (1) Altered mental status: Ama is a 54-year-old female with a past medical history of bipolar disorder and recent concern for seizures. She has been admitted for acute altered mental status and incontinence. Altered mental status, unclear etiology Known schizoaffective disorder controlled with Abilify IM last dose 02/26/2019. 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 -Urine culture negative. Urine toxicology was negative for opioids, barbiturates, PCP, amphetamines, benzodiazepines, MDMA, cocaine, and THC -Alcohol level was undetectable. Acetaminophen negative, salicylate 3.0 (low end of normal). Ammonia negative. EKG shows normal sinus tachycardia No hypoglycemia on admission -Concern of unintentional clonazepam overdose per psychiatry. -Hemoconcentrated on admission. Reports poor oral intake. Likely from oversedation -Per neuro - EEG - negative. Empirically ordered depakote for probable seizure. recheck level in 5 days. Mentation back to baseline Scitzoaffective Disorder well controlled with Abilify. She currently lives in her own apartment via government [place] for disability housing. She is followed by Steve Ace in the [place] [facility], was previously seen by Dr. Nelson. Receives Abilify 400 mg IM once monthly with additional clonazepam 1 mg up to 3 times daily as needed. - Here getting clonazepam 1mg BID PRN - Psychiatry input appreciated. No concern of EPS. Due for her aripiprizole dose - Dose ordered today -Outpatient psychiatry f/u set up for 1pm 6/4 Type 2 diabetes mellitus on metformin monotherapy, last A1C = 6.7 resumed diet. 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 He works in the restaurant industry and is generally available before 11 AM or after 2 PM. CODE STATUS: Full code (2) Seizure-like activity: (3) Diabetes: (4) Hypothyroid: Supervising Physician Co-Signing Physician Notes Resident Physician Supervision Note: I independently interviewed and examined the patient and verified the doan history and physical, reviewed labs and image studies, discussed the case with the resident Dr. Boucher and agree with the findings and care plan. Subjective 54 y/o F found in bed this AM in NAD. No reported overnight events. Still feels a little bit anxious, but better yet today. She is not short of breath, has no chest pain, no chest pressure, and no headache. Notes that her spasm-like cough has improved. No tremors. No fevers, chills, sweats overnight. Tolerating PO intake. No issues voiding. No other acute concerns or complaints. Review of Systems Review of Systems: All systems reviewed & are unremarkable except as noted in HPI & below Physical Exam Constitutional: WD/WN, vitals as above Eyes: PERRL, conjunctivae normal, anicteric sclerae ENMT: external ear and nose normal, oropharynx normal Respiratory: normal respiratory effort, lungs clear to auscultation Cardiovascular: RRR, no murmur, no edema Gastrointestinal (Abdomen): normal bowel sounds, soft, nontender, no hepatosplenomegaly Skin: no rashes, warm and dry Psychiatric: Orientation: alert and oriented x 3 Affect: + flat affect Results & Data Vital Signs (Past 12 Hours) Vital Signs Temp Pulse Pulse Resp BP BP Pulse Ox 04/29/19 12:03 37.1 C 72 20 135/71 99 04/29/19 09:27 80 04/29/19 08:00 81 04/29/19 07:46 37.0 C 67 22 120/85 99 04/29/19 04:10 36.9 C 71 16 118/83 100 Laboratory Results Laboratory Results - last 24 hr 04/28/19 04/28/19 04/29/19 16:10 20:08 06:07 Sodium 144 Potassium 3.1 L Chloride 110 H Carbon Dioxide 27 Anion Gap 7.0 BUN 4 L Creatinine 0.63 Est Cr Clr Drug Dosing 116.6 Est GFR ( Amer) 117.0 Est GFR (Non-Af Amer) 101.0 BUN/Creatinine Ratio 6.4 L Glucose 167 H POC Glucose 153 H 201 H Calcium 8.6 04/29/19 04/29/19 07:21 11:43 Sodium Potassium Chloride Carbon Dioxide Anion Gap BUN Creatinine Est Cr Clr Drug Dosing Est GFR ( Amer) Est GFR (Non-Af Amer) BUN/Creatinine Ratio Glucose POC Glucose 175 H 145 H Calcium Medications Administered Current Inpatient Medications Acetaminophen (Tylenol) 650 mg PO Q4H PRN PRN Reason: Fever/Mild Pain (Pain 1,2,3) Stop: 05/27/19 17:37 Last Admin: 04/29/19 14:14 Dose: 650 mg Documented by: Aripiprazole (Abiliffernandez Maintena Kit) 400 mg IM 1800 ONE Stop: 04/29/19 18:01 Benztropine Mesylate (Cogentin) 1 mg PO HS [facility] Stop: 05/28/19 20:59 Last Admin: 04/28/19 19:34 Dose: 1 mg Documented by: Clonazepam (Klonopin) 1 mg PO BID PRN PRN Reason: Anxiety Stop: 05/27/19 13:33 Last Admin: 04/29/19 15:21 Dose: 1 mg Documented by: Dextrose (Dextrose 50%) 25 - 50 ml IV UD PRN; Protocol PRN Reason: Hypoglycemia Protocol Stop: 05/25/19 18:44 Divalproex Sodium (Depakote Delay Release) 500 mg PO BID [facility] Stop: 05/27/19 10:44 Last Admin: 04/29/19 08:02 Dose: 500 mg Documented by: Enoxaparin Sodium (Lovenox) 40 mg SQ Q24H [facility] Stop: 05/25/19 20:59 Last Admin: 04/28/19 19:34 Dose: 40 mg Documented by: Glucagon (Glucagen) 1 mg IM UD PRN; Protocol PRN Reason: Hypoglycemia Protocol Stop: 05/25/19 18:44 Glucose (Glucose 40%) 15 - 30 gm PO UD PRN; Protocol PRN Reason: Hypoglycemia Protocol Stop: 05/25/19 18:44 Glucose (Dex4 Glucose) 4 - 8 tabs PO UD PRN; Protocol PRN Reason: Hypoglycemia Protocol Stop: 05/25/19 18:44 Lorazepam (Ativan) 1 mg in 2 mls @ 2 mls/min IV Q1H PRN PRN Reason: Notification Stop: 05/25/19 18:26 Last Admin: 04/27/19 04:22 Dose: 2 mls/min Documented by: Insulin Aspart (Novolog Flexpen) 0 units SC ACHS [facility] Stop: 05/27/19 12:29 Last Admin: 04/29/19 12:49 Dose: 7 units Documented by: Miscellaneous (Carbohydrates For Hypoglycemia) 15 - 30 gm PO UD PRN PRN Reason: Hypoglycemia Treatment Stop: 05/25/19 18:44 Ondansetron HCl (Zofran) 4 mg IV Q6H PRN PRN Reason: Nausea Stop: 05/25/19 18:26 Resident Activity Tracking Resident Involvement: Resident Care Provided Care Provided: Adult Hospital Medicine (1) Diabetes Diabetes mellitus complication status: without complication Diabetes mellitus remote computer terminal operator insulin use: without usp use Diabetes mellitus type: type 2 Qualified Code(s): E11.9 - Type 2 diabetes mellitus without complications (2) Altered mental status Altered mental status type: unspecified Qualified Code(s): R41.82 - Altered mental status, unspecified
[2019-04-29] MEDS ORDERED: PHARMACY GLYCEMIC MGMT CONSULT PRN (16:47)
[2019-04-29] MEDS ORDERED: ARIPIPRAZOLE 400 MG KIT IM ONE (18:00)
[2019-04-29] MEDS ORDERED: INSULIN GLARGINE SOLOSTAR 100 UNITS/ML 3 ML PEN SC ONE (20:00)
[2019-04-29] MEDS: BENZTROPINE MESYLATE 1 MG TAB PO SCH (20:10)
[2019-04-29] MEDS: ENOXAPARIN INJ 40 MG/0.4 ML SYR SQ SCH (20:10)
--- NOTE | 2019-04-29 20:52 | Pharmacy Report ---
PHA: Glycemic Control AP - Date of Service April 29, 2019 - Assessment & Plan Laboratory Tests 04/27/19 04/28/19 04/28/19 15:58 07:13 16:10 POC Glucose 164 H 134 H 153 H 04/29/19 04/29/19 07:21 16:48 POC Glucose 175 H 201 H * Correctional Insulin: Novolog Correction per scale ACHS Goal Range: Low 120 mg/dL - High 160 mg/dL Correction Factor: 30 mg/dL/unit * Prandial insulin: Per carb ratio of 1 unit per 10 grams CHO consumed BSGs remain fairly stable. I had planned to give a stress level=1 Lantus = 8 units this evening as BSG prior to twfpml=052 and pt conusmed 80 grams CHO with dinner, HOWEVER BSG prior to HS = 108 and I cancelled the Lantus 8 units previously ordered. No changes needed to inpatient regimen at this time. Pharmacy will continue to monitor patient daily and write orders per [facility] inpatient glycemic control protocol. Thanks. * Please note that the plan above was derived based on current level of insulin resistance and hospital stress. These recommendations are appropriate for inpatient admission only. Plan of care upon discharge will need to be reassessed to avoid potential outpatient hypo/hyperglycemia.
[2019-04-30] MEDS: ACETAMINOPHEN 325 MG TAB PO PRN (00:19)
[2019-04-30] MEDS: clonazePAM 1 MG TAB PO PRN ×2 (00:19→12:14)
[2019-04-30 07:33] LABS: BUN Creatinine Ratio 8.6 (10-20); Calcium 8.7 mg/dl (8.5-10.1); Creatinine Clr Calc Pharmacy 111.7 ml/min; Est GFR (African American) 115.8; Est GFR (Non-African American) 99.9; Potassium 3.3 mmol/L (3.5-5.1)
[2019-04-30] MEDS: DIVALPROEX DELAY RELEASE 500 MG TAB PO SCH (08:22)
[2019-04-30] MEDS: INSULIN ASPART 100 UNITS/ML 3 ML PEN SC SCH ×2 (08:23→11:56)
[2019-04-30] MEDS ORDERED: POTASSIUM CHLORIDE 20 MEQ TABCR PO ONE (08:45)
--- NOTE | 2019-04-30 09:54 | Discharge Summary ---
Date of Service April 30, 2019 Admission HPI Per Admitting Provider Patient is a poor historian at present due to catatonic state, and information provided by her required multiple reiteration of the question, with inconsistent responses. According to the patient, she had been feeling sick for an undetermined amount of time, and she is otherwise unable to relay what symptoms she has been experiencing. She denies having reached out to friends and family, or seeking medical care when she began feeling unwell, but states that she had been taking her medications as prescribed. She denies overdose of her medications, or recent worsening of her anxiety or depression. She denies auditory or visual hallucinations, or any thoughts that someone has been trying to harm her. She is able to recall she no longer sees her previous psychiatrist, Dr. Godinez, but is unable to state who her new provider is and when she switched. Other than grunting and complaint of pain at her sternum, she denies headaches, N/V, belly pain, issues with voiding or stooling. She states she has been eating. She denies possession of guns at home. She recalls her parents are , her brother lives in [place], and she has 2 sons, Ronaldo and Sivan. She then pleasantly asked that I "leave her alone for a while" before I was able to proceed further with questioning. Review of patient records reveals that caregivers found her altered and brought her to the ED on 04/25/19. According to caregivers there was evidence of incontinence of bladder and bowel on the home. Her CM notes that patient has generally been in good health over the last few months, with no recent psychotic episodes. She has been functional and maintaining employment. CM notes patient had a similar episode of reduced consciousness with seizure-like episodes including groaning/grunting, limb twitching/stiffening, altered speech, recent fall from her chair to the floor, incontinence in February, and has recently been seen by neurology for seizure-like activity work up. She has a negative MRI from April 18, 2019, no discernible seizure activity since admission, and neurology has been consulted during this admission. Principal Diagnosis ams Discharge Exam Constitutional WD/WN, vitals as above Eyes PERRL, conjunctivae normal, anicteric sclerae ENMT external ear and nose normal, oropharynx normal Respiratory normal respiratory effort, lungs clear to auscultation Cardiovascular RRR, no murmur, no edema Gastrointestinal (Abdomen) normal bowel sounds, soft, nontender, no hepatosplenomegaly Skin no rashes, warm and dry Psychiatric Orientation: alert and oriented x 3 Affect: + flat affect Discharge Data Allergies Allergy/AdvReac Type Severity Reaction Status Date / Time propoxyphene Allergy Intermediate nausea and Verified 04/29/19 16:05 hives haloperidol AdvReac Severe Severe EPS Verified 04/27/19 18:49 amoxicillin AdvReac Intermediate vomiting Verified 04/29/19 16:05 clavulanic acid AdvReac Intermediate vomiting Verified 04/29/19 16:05 codeine AdvReac Intermediate nausea Verified 04/29/19 16:05 erythromycin base AdvReac Intermediate vomiting Verified 04/29/19 16:05 ibuprofen AdvReac Intermediate tears my Verified 04/29/19 16:05 intestines up ketorolac [From Toradol] AdvReac Intermediate Nausea Unverified 04/29/19 16:05 nalbuphine AdvReac Intermediate violent Verified 04/29/19 16:05 vomiting NSAIDS (Non-Steroidal AdvReac Intermediate vomiting Verified 04/29/19 16:05 Anti-Inflamma tramadol AdvReac Intermediate intestines Verified 04/29/19 16:05 turn inside out Corticosteroids AdvReac Mild "INTESTINES Verified 04/25/19 14:32 (Glucocorticoids) TURN INSIDE OUT" LYSOL CLEANEER Allergy Intermediate HIVES Uncoded 04/25/19 14:32 BREAKS OUT Consultations 04/25/19 17:33 ED Decision to Admit Stat 04/25/19 18:27 Consult Neurology Routine Consult Psychiatry Routine Ordered Studies 04/25/19 14:22 CT head/brain wo con Stat 04/28/19 19:00 US venous doppler [facility] Urgent Hospital Course (1) Schizoaffective disorder: Ama is a 54-year-old female with a past medical history of bipolar disorder and recent concern for seizures. She was admitted for acute altered mental status and incontinence. The following is the medical management during stay here: Altered mental status, possibly secondary to clonazepam overuse. -During stay here, Ama improved clinically pretty quickly and mentation was back at baseline at time of d/c. She has a history of schizoaffective disorder controlled with Abilify IM last dose 02/26/2019. She had altered mental status for 1 day [employer] with some bladder incontinence. -EEG negative Other work up: UA/Urine culture was negative. Urine toxicology was negative. Alcohol level was undetectable. Acetaminophen negative, salicylate 3.0 (low end of normal), and Ammonia negative. Her EKG was unrevealing. There was no hypoglycemia on admission. -Per psychiatry likely etiology - Clonazepam overuse. Noted to be hemoconcentrated on admission and did report poor oral intake [employer]. Possible seizure In addition had laryngospasm like episode had at least 2 observed convulsive episodes characterized by 10 minutes of shaking with loss of consciousness in the last 2 months. EEG 04/26, which was normal. Neuro was consulted and said that in spite of unrevealing EEG, appropriate to start empiric anticonvulsant therapy with Depakote DR 500 mg BID as a seizure disorder seemed probable. Prolonged EEGs and referrals for video EEG monitoring may still be considered on an outpatient basis. Please order a follow-up valproic acid level in 5 to 7 days and pt to follow-up in the neurology outpatient clinic. Schizoaffective Disorder -Psychiatry consulted. No concern of EPS. Continue IM abilify and lorazeapm. Was due for her dose of abilify and was given before discharge - To f/u with psychiatry on discharge. Type 2 diabetes mellitus on metformin monotherapy -Pt's last A1C = 6.7. We had her on SSI with BSG under control. She will resume normal regimen on d/c. Hypothyroidism Pt's TSH was within normal limits and we continued [employer] levothyroxine 75 mcg daily Hypertension We held [employer] propranolol 80 mg daily 2/2 bradycardia, but this will be resumed on d/c. DVT Prophylaxis with Lovenox. At time of d/c, pt had no other acute concerns or complaints. Total Time Total Time Spent Total Time Spent (In Minutes): 30 min Discharge Plan Discharge Items Patient Disposition: Home - Home Health Services Reason For Visit: ALTERED MENTAL STATUS Discharge Diagnosis: AMS/Seizures Discharge Goals: Improve disease control and Improve function Activity: Per 'Additional Instructions' section Non-emergency contact: Primary Care Provider Call non-emergency contact if: you have any medication questions and your symptoms worsen Follow-up/Referrals: Christine Bender MD [Primary Care Provider] - (Please follow up with Primary Care Physician within 1 week. ) Diet: Carb Consistent or DM2 Addtl Provider Instructions: You were admitted for concerns of altered mental status and seizures. The origin of your altered mental status remains unclear, but we ruled out the scary possibilities including infections, toxic ingestions, or other psychiatric conditions. Please follow the below instructions on discharge: -You will continue anti-seizure medication Depakote 500 mg BID -Please follow up with your PCP within one week of discharge. At this time, they will check your blood work to check your Depakote levels. If you notice similar symptoms that brought you into the ER initially, see your PCP earlier. -You are scheduled to see Katina Ace at [place] [facility] on 04/30/19 at 1PM. At this time, they will discuss what dosing of clonazepam to continue on. You were changed from 1 mg 3x/day to 2x/day here. -You received your scheduled monthly Abilify injection here on 04/29 -Please continue to take only those medications that are prescribed to you at the correct doses and intervals. Do not change this or it can cause you to become altered Prescriptions: New divalproex [Depakote] 500 mg tablet,delayed release (DR/EC) 500 mg PO BID Qty: 30 RF: 0 Continued levothyroxine 75 mcg tablet 75 mcg PO QAM RF: 0 metformin 500 mg tablet extended release 24 hr 500 mg PO BID RF: 0 propranolol [Inderal LA] 80 mg capsule,extended release 24 hr 80 mg PO QAM RF: 0 promethazine 12.5 mg Tablet 12.5 mg PO Q6H PRN (Reason: Nausea) RF: 0 cholecalciferol (vitamin D3) [Vitamin D3] 5,000 unit Tablet 5,000 unit PO DAILY RF: 0 Changed clonazepam 1 mg tablet 1 mg PO BID PRN (Reason: anxiety) Qty: 30 RF: 0 Stand-Alone Forms: [facility] Discharge Orders: Discharge Order (Routine); Ordered 04/30/19 Ordered By: Murphy Boucher Admission Data Admit Date/Time: 04/25/19 17:47 Attending Provider: Gia Ulloa Admit Provider: Alonzo Mc Primary Care Provider: Christine Bender V. Other Providers: Alonzo Mc ; Gurjit English ; Jasbir Regalado III ; May Joseph ; Nino Chavez ; Alecia Ness ; Baldomero Ornelas Service: Telemetry Other Interventions: Discharge Summary Assessment (RN) Last Done: 04/30/19 12:16 DC Date/Time DO NOT enter until pt leaves facility: 04/30/19 13:04 Supervising Physician Co-Signing Physician Notes Resident Physician Supervision Note: I independently interviewed and examined the patient and verified the doan hi story and physical, reviewed labs and image studies, discussed the case with the resident Dr. Boucher and agree with the findings and care plan. Time spent in discharge 35 min Resident Activity Tracking Resident Involvement: Resident Care Provided Care Provided: Adult Hospital Medicine
== END 2019-04-30 13:04 | disposition home health service (06) | DRG 948 ==
LOC: ED 13:48 → SUATTDRO 17:47 → 2S 17:47